=== PATIENT | female | born 1930 | race Caucasian/White ===

== ENCOUNTER 2016-04-20 11:39 | Inpatient (IN) | payer MEDICARE ==
[~2016-04-20] VITALS: Ht 157.5 cm; Wt 63.5 kg
[~2016-04-20 11:39] MED LIST: /WARF5TA OR; ACET65TA OR; AMLO10TA; AMLO10TA OR; AMLO5TAB OR; ASPI81TA83 OR; ATEN25TA PO; ATEN50TA2; ATEN50TA2 OR; CALCCHW12 OR; CLINDAMYCIN OR; DEPA250T3 OR; DEPA500T; DIOV320T; DIOV320T OR; DIVA250T PO; EFFE75CA75; EFFE75CA75 OR; FERR325T OR; FISH1000 OR; FLEEENE4 PR; FLEET ENEMA PR; FURO80TA2 OR; HEPARIN; LASI40TA; LASI40TA PO; MILKSUS OR; MIRALEX OR; POTA10TA PO; POTA20TA2 OR; RESTASIS EYE DROPS; SALISOL7; SENN8.6T5 OR; SIMV40TA2 OR; TRAM50TA2 OR; VANC12CA; VENL75TA3 PO; VICO5TAB; VICO5TAB OR; XANA0.25 OR; ZETI10TA; ZOCO10TA; [UNRECOGNIZED DRUG - OTHER]; [UNRECOGNIZED DRUG - OTHER]; [UNRECOGNIZED DRUG - OTHER]
[2016-04-20 12:36] LABS: BASO % 0.3 % (0.0-1.0); EOS # 0.1 K/mm3 (0.0-0.50); EOS % 1.1 % (0.0-3.0); LARGE UNSTAINED CELL # 0.1 K/mm3 (0.0-0.4); LARGE UNSTAINED CELL % 2.4 % (0.0-4.0); LYMPH # 0.7 K/mm3 (1.5-4.5); MEAN CORPUSCULAR HGB CONC 33.9 g/dl (32.0-36.5); MEAN CORPUSCULAR VOLUME 88.6 fl (80.0-96.0); MONO # 0.4 K/mm3 (0.0-0.8); MONO % 6.2 % (0.0-5.0); NEUTROPHILS # 4.7 K/mm3 (1.8-7.7); NEUTROPHILS % 78.9 % (36.0-66.0); PLATELET COUNT, AUTOMATED 197 k/mm3 (150-450); RED CELL DISTRIBUTION WIDTH 14.6 % (11.5-14.5); WHITE BLOOD COUNT 5.9 K/mm3 (4.0-10.0)
[2016-04-20 12:42] LABS: INR 1.8
[2016-04-20 12:55] LABS: CALCIUM LEVEL 8.7 MG/DL (8.8-10.2); CREATININE FOR GFR 1.64 MG/DL (0.55-1.02); DIGOXIN LEVEL 0.9 NG/ML (0.5-2.0); GLOMERULAR FILTRATION RATE 31.5 (>32); POTASSIUM SERUM 3.7 MEQ/L (3.5-5.1)
--- NOTE | 2016-04-20 14:11 | REP ---
Clinical: Deformity and swelling. Technique: Duran scale and color Doppler evaluation using linear high frequency transducer. Findings: Ultrasound examination of the right lower extremity deep venous structures from the common femoral vein to the popliteal vein demonstrates normal compressibility flow and wave patterns in response to respiration and augmentation. There is no evidence for deep venous thrombosis. Impression: No evidence for deep venous thrombosis. Signed by Don Rabago MD 04/20/2016 02:02 P
[2016-04-20] MEDS ORDERED: VANCOMYCIN HCL 1,000 MG, VIAL MATE ADAPTER 1 EACH in D5W 250 ML IV SCH (15:00)
[2016-04-20] MEDS ORDERED: DIVA250T PO (15:04)
[2016-04-20] MEDS ORDERED: WARF-18 PO (15:04)
[2016-04-20] MEDS ORDERED: WARF-23 PO (15:04)
[2016-04-20] MEDS ORDERED: VENL75CA PO (15:11)
[2016-04-20] MEDS ORDERED: ATEN50TA2 PO (15:11)
[2016-04-20] MEDS ORDERED: SPIR25TA2 PO (15:11)
[2016-04-20] MEDS ORDERED: KRIL1000 PO (15:11)
[2016-04-20] MEDS ORDERED: VITA100066 PO (15:11)
[2016-04-20] MEDS ORDERED: LETR2.5T PO (15:11)
[2016-04-20] MEDS ORDERED: LOSA100T36 PO (15:11)
[2016-04-20] MEDS ORDERED: TORS20TA2 PO (15:11)
[2016-04-20] MEDS ORDERED: KLOR1CAP2 PO (15:11)
[2016-04-20] MEDS ORDERED: SIMV20TA2 PO (15:11)
[2016-04-20] MEDS ORDERED: DIGO0.12 PO (15:11)
[2016-04-20] MEDS ORDERED: REST0.05 OU (15:11)
[2016-04-20 16:41] LABS: ERYTHROCYTE SEDIMENTATION RATE 35 mm/hr (0-42)
[2016-04-20] MEDS ORDERED: WARFARIN SOD 2.5 MG TAB PO SCH (17:00)
[2016-04-20] MEDS ORDERED: NS 1,000 ML IV ONE (17:00)
--- NOTE | 2016-04-20 17:33 | REP ---
Clinical: Shortness of breath. Technique: AP and lateral. Comparison: 08/01/2013. Findings: Mediastinum and cardiac silhouette stable. Lung blank demonstrate diffuse chronic fibrosis and interstitial changes without obvious acute consolidation, effusion, or pneumothorax. Skeletal structures demonstrate osteopenia and degenerative changes including old healed right humerus fracture. Impression: Diffuse chronic changes. No obvious acute cardiopulmonary process Signed by Don Rabago MD 04/20/2016 05:25 P
--- NOTE | 2016-04-20 17:50 | HPE ---
DATE OF ADMISSION: 04/20/2016 PRIMARY CARE PHYSICIAN: Eliseo Serra M.D. INPATIENT HOSPITALIST ATTENDING: Yimi Rolon M.D. CHIEF COMPLAINT: Right leg blisters, swelling and redness. HISTORY OF PRESENT ILLNESS: 85-year-old female with history of bilateral breast cancer status post lumpectomy, radiation, atrial fibrillation on chronic Warfarin and atenolol, hypertension, hypercholesterolemia, presents to the emergency room with two week history of worsening lower extremity edema. Increasing redness, swelling and pain and multiple ulcers which have worsened over the past two weeks. Patient was given topical ointment by her healthcare provider with no improvement. She awoke this morning with bright redness and pain of the right lower extremity prompting her to present to the emergency room. She admits to having some purulent drainage at the right lower extremity site. In the emergency room she was found to be afebrile, white count was normal, venous Dopplers were negative for deep vein thrombosis. She had significant erythema and non healing ulcers. Hospitalist service was called for admission for bilateral lower extremity cellulitis and venous ulcers. She otherwise denies any weight gain, weight loss, changes in appetite, fevers, she admits to some chills yesterday and today which alleviated on its own. Increasing water blisters which have opened up for the past two weeks, pain redness and difficulty ambulating due to increasing lower extremity edema. Otherwise denies any chest pain, pressure, tightness, lightheadedness, palpitations. Denies nausea, vomiting, abdominal pain, diarrhea. Denies upper or lower extremity weakness, numbness, tingling sensation. Denies depression or anxiety. Denies sinus congestion. She is hard of hearing at baseline, wears glasses at baseline, unchanged from prior. Denies any nasal congestion, sore throat, neck enlargement. PAST MEDICAL HISTORY: Bilateral breast cancer in 1994 again 2011 status post lumpectomy, radiation, currently on oral chemotherapy. Atrial fibrillation on chronic Warfarin. Hypercholesterolemia. Hypertension. Dysthymic disorder. Congestive heart failure not otherwise specified. No echocardiogram available. Bilateral knee replacements. Cataract surgery bilaterally. Depression. Reflex disease. Left ventricular diastolic dysfunction echo 10/2007 EF of 60-65%. PAST SURGICAL HISTORY: Bilateral knee replacement. Cataract surgery bilaterally. Lumpectomy with radiation bilaterally. Tonsillectomy. FAMILY HISTORY: Non-contributory due to age. SOCIAL HISTORY: Lives in [facility]. . Denies smoking or alcohol use. DO NOT RESUSCITATE, DO NOT INTUBATE. Health care proxy is Tank Tanner. REVIEW OF SYSTEMS: Has been in her usual state of health until two weeks ago with increasing lower extremity edema, venous ulcers and blisters. Increasing pain and redness of the lower extremities. Chills for the past two days. No documented fever. Prior cataract surgery. No post nasal drip or sore throat. All other systems and 12 point system negative aside from positive findings in history of present illness. PHYSICAL EXAMINATION: Blood pressure 119/63, pulse 68, respiratory rate 18, temperature 97.8, 100% on room air. 63.5 kilos, 5' 2" tall. GENERAL: Awake, alert, and oriented times three. Hard of hearing. Speech is fluent. Pupils round and reactive. Extraocular muscles intact. NECK: Supple. Full range of motion. Trachea is midline. No thyromegaly, carotid bruits or jugular venous distention. CHEST: Lungs are clear. Diminished air sounds. HEART: Diminished breath sounds. S1, S2, irregular, soft systolic ejection murmur at the left sternal border. ABDOMEN: Soft, obese, non-tender, non-distended. Positive bowel sounds. EXTREMITIES: 3+ pitting edema, erythema towards the mid lakhani on the right lower extremity with a 6 x 3 cm venous ulcer. Another in the lateral area measuring 2 cm open ulcer. Left lower extremity has a 6 x 6 cm ulcer on the posterior leg. Electrocardiogram atrial fibrillation. Ventricular wave 68. Non specific ST-T changes. Left ventricular hypertrophy. LABORATORY DATA: White count 5.9, hemoglobin 12, hematocrit 37, platelet count 197, sed rate and CRP are pending. Sodium 139, potassium 3.7, chloride 103, bicarbonate 31, BUN 63, creatinine 1.64 , glucose 100. Previous creatinine 2013 creatinine of 1. IMAGING STUDY: Venous Doppler lower extremity; no deep vein thrombosis. ASSESSMENT AND PLAN: This is an 85-year-old DO NOT RESUSCITATE, DO NOT INTUBATE female with history of bilateral breast cancer status post lumpectomy radiation on chronic Letrozole, atrial fibrillation, congestive heart failure, diastolic dysfunction 2008 echo, hypertension, hypercholesterolemia, atrial fibrillation on chronic warfarin and Digoxin presents to the emergency room with two week history of increase lower extremity edema "water blisters", open ulcers and admitted for bilateral extremity cellulitis and acute kidney injury. Baseline creatinine of 1 in 2012. Patient will be admitted as an inpatient for two midnights to the hospitalist service and assigned to Dr. Yimi Rolon for the following issues: 1. Bilateral lower extremity venous stasis ulcers with underlying cellulitis, questionable <<8:38>> . At this time patient will be given intravenous vancomycin. Right lower extremity ulcer has been cultured for sensitivity with wide band culture. Pharmacy has been consulted for renal dosing of vancomycin. Depending on culture results may need to change antibiotics to prevent C. Difficile. We will start on Bacid. Elevate the lower extremities. 2. Acute kidney injury. Previous creatinine was 1, current creatinine is 1.67. We will hold off on one day of diuretics. We will hold of on the spironolactone torsemide. Monitor for worsening breathing. Check chest x-ray and BNP level. 3. History of atrial fibrillation. Currently rate controlled. Continue on warfarin for cerebrovascular accident (CVA) prophylaxis, atenolol for rate control, Digoxin. Check a level in the morning. 4. Hypertension. In light of new renal failure we will hold off on patient's losartan and torsemide. Recheck metabolic panel in the morning. Renally dose all medications. Avoid other nephrotoxins. 5. History of bilateral breast cancer status post lumpectomy and radiation. Continue letrozole. Patient management per her oncologist. 6. Hypercholesterolemia. Continue Simvastatin. Check lipid profile in the morning. 7. Hypertension. Due to renal failure we will hold off on losartan and torsemide. We may need to titrate patient's atenolol if pulse permits, if not we may need to use hydralazine and nitrates. 8. History of dysthymic disorder. Continue on venlafaxine. 9. Deep vein thrombosis prophylaxis. On chronic Coumadin. Receiving home dose. Patient will be assigned to Dr. Yimi Rolon at 10 p.m. on 02/18/2017. He will assume care of this patient on 7 a.m. on 02/19/2017. [facility]
[2016-04-20] MEDS ORDERED: VANCOMYCIN 1000 MG/20 ML VIAL (J3370) As Ordered ONE (18:33)
--- NOTE | 2016-04-20 18:51 | EDDOCDS ---
Physician Documentation [facility] Name: Pretty Pierre Age: 85 yrs Sex: Female : 1930 Arrival Date: 04/20/2016 Time: 11:39 Bed Admit Hold Private MD: Disposition: 04/20 14:46 Critical Care: Critical care not applicable. pc Disposition: 04/20/16 14:48 Hospitalization ordered by Meredith Ortega for Inpatient Admission. 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 - Bed requested for 5 [place]. - Status is Inpatient Admission. ld5 - Condition is Stable. - Problem is an ongoing problem. - Symptoms are unchanged. HPI: 13:01 This 85 yrs old Female presents to ER via Ambulance with complaints of Leg pc Pain, Leg Swelling. 13:01 The history is obtained from the patient. She has had bilateral leg swelling, right pc worse than left, for 3 weeks. She says her LEs are always slightly swollen and "a little red" but they developed large yellow blisters 2-3 weeks ago, on her shins and calves, that when they rupture, they drain "very sticky yellow fluid". She saw her PCP last week and was started on a cream and advised how to dress her leg wounds. They are now much more red and tender and she is afraid they are infected. She denies any fevers or chills. The patient has experienced a previous episode, approximately 3 years ago. Historical: - Allergies: PENICILLINS (Hives); - Home Meds: 1. divalproex 250 mg oral TbEC 2 times per day (Last dose: 04/19/2016) 2. warfarin 2.5 mg Oral tab 2.5mg every day but mon and fri (Last dose: 04/19/2016) 3. warfarin 5 mg Oral tab 1 tab once daily mon and fri 4. letrozole 2.5 mg oral tab 1 tab once daily (Last dose: 04/19/2016) 5. atenolol 50 mg Oral tab 1 tab once daily (Last dose: 04/19/2016) 6. Klor-Con 10 10 mEq Oral TbER 2 tabs once daily (Last dose: 04/19/2016) 7. spironolactone 25 mg Oral tab 0.5 tab (Last dose: 04/19/2016) 8. digoxin 125 mcg Oral tab once daily (Last dose: 04/19/2016) 9. simvastatin 20 mg Oral tab 1 tab hs (Last dose: 04/19/2016) 10. losartan 100 mg oral tab 1 tab once daily (Last dose: 04/19/2016) 11. venlafaxine 75 mg oral cp24 1 cap once daily (Last dose: 04/19/2016) 12. torsemide 20 mg oral tab 1 tab bid (Last dose: 04/19/2016) - PMHx: afib; bilateral breast cancer; Hypercholesterolemia; mood swings; Hypertension; - PSHx: Lumpectomy; radiation; - The history from nurses notes was reviewed: and I agree with what is documented. - Social history: No barriers to communication noted, The patient speaks fluent [place], Speaks appropriately for age, Smoking status: Patient states former smoker of tobacco. - : The pt / caregiver states he / she is on anticoagulants: Home medication list is obtained from the patient. - Hospitalizations: : No recent hospitalization is reported. - Exposure Risk Screening:: None identified. - Immunization history:: All immunizations up-to-date. - Family history: Not pertinent. - Social history:: the patient is a non-smoker, the patient does not drink alcohol. ROS: 13:01 All systems are negative except as listed. pc Exam: 13:01 General Appearance: no acute distress, alert. pc 13:01 EENT: normal eye inspection, ears, nose and throat normal, pharynx normal, mucous membranes moist 13:01 Neck: The exam reveals no acute abnormalities. ROM is normal and painless. No nuchal rigidity is noted.. 13:01 Respiratory: no respiratory distress, normal breath sounds. 13:01 CVS: regular pulse rate, regular rhythm, normal S1 and S2, no murmurs, strong peripheral pulses. 13:01 Abdomen: soft, non-tender, no organomegaly, normal bowel sounds. 13:01 Back: normal inspection. 13:01 Skin: skin color is normal, warm, dry. 13:01 Extremities: grossly normal except: noted in the right leg and left leg: erythema and swelling of both anterior tibias, with areas of ruptured blisters with clear drainage. The right calf is 3cm greater circumference than the left but is non-tender. There are areas of ruptured blisters on both calves. Distal pulses are normal. 13:01 Neuro: oriented x 3, cranial nerves normal as tested, no motor deficits, no sensory deficits. 13:01 Psych: normal mood. Vital Signs: 11:48 BP 119 / 63; Pulse 68; Resp 18; Temp 97.8(O); Pulse Ox 100% on R/A; Weight 63.5 kg / ct3 139.99 lbs (R); Height 5 ft. 2 in. (157.48 cm) (R); Pain 10/10; 16:36 Pulse 70 MON; Pulse Ox 99% ; ld5 16:45 BP 128 / 72; Pulse 66; Resp 18; Temp 98; Pulse Ox 99% on R/A; ld5 17:28 BP 128 / 72 (auto/); ld5 17:50 Pulse 72 MON; Pulse Ox 99% ; ld5 11:48 Body Mass Index 25.61 (63.50 kg, 157.48 cm) ct3 MDM: 11:58 IV Saline Lock ordered. mcp 12:00 CBC with Diff Ordered. EDMS 12:00 MED Profile Ordered. EDMS 12:00 PT/INR Ordered. EDMS 12:16 DIGOXIN LEVEL Ordered. EDMS 12:16 VALPROIC ACID (DEPAKOTE) Ordered. EDMS 13:00 CBC with Diff Reviewed. pc 13:00 MED Profile Reviewed. pc 13:00 PT/INR Reviewed. pc 13:00 VALPROIC ACID (DEPAKOTE) Reviewed. pc 13:00 DIGOXIN LEVEL Reviewed. pc 13:01 DVT US Lower Ordered. EDMS 13:01 ECG WITH READING ER PHYS+CARDIAG ordered. EDMS 13:01 Differential Diagnosis: stasis dermatitis both LEs, swollen right calf r/o DVT; yellow pc blisters on LE r/o pemphigus. Plan: labs, imaging. 13:18 Test interpretation: EKG. pc 13:27 Wound Culture - Most Extremities Ordered. EDMS 14:29 DVT US Lower Reviewed. pc 14:38 [facility] Payment Agreement was scanned into [employer] and attached to record. 5 14:38 Financial registration complete. jp5 14:46 Data reviewed: old medical records, vital signs, nurses notes, lab test results, all pc radiology studies and available results. Data reviewed: EKG(s). Test interpretation: LAB - all labs as ordered have been reviewed, interpreted and considered in the overall management of the clinical presentation; Ultrasound - interpreted by Radiologist, Extremity Lower Right Normal. The patient has been re-examined and re-evaluated. There is no appreciated change of the patient's symptoms at this time. Physician consultation: Dr. Meredith Ortega was contacted at 14:46, regarding admission, and will see patient in ED. Disposition: The historical points, examination findings, and any diagnostic results supporting the provided diagnosis, were discussed with the patient or legal guardian. The need for further work-up and/or treatment in the hospital was explained. 14:47 BED REQUEST+ADM ordered. EDMS 14:56 Admission / Observation Status ordered. EDMS 14:57 2 GRAM SODIUM DIET ordered. EDMS 14:57 BASIC METABOLIC PROFILE Ordered. EDMS 14:57 CBC WITH DIFFERENTIAL Ordered. EDMS 14:58 WOUND CULTURE Ordered. EDMS 14:59 PHYSICAL THERAPY EVAL & TREAT ordered. EDMS 16:04 ERYTHROCYTE SEDIMENTATION RATE Ordered. EDMS 16:04 C REACTIVE PROTEIN QUANTITATIV Ordered. EDMS 16:37 BRAIN NATIURETIC PEPTIDE Ordered. EDMS 16:37 Chest, 2 view PA, Lat Ordered. EDMS 18:04 BASIC METABOLIC PROFILE Ordered. EDMS 18:18 ECHOCARD,DOPPLER/COLOR FLOW ordered. EDMS 18:34 Written Provider Order was scanned into [employer] and attached to record. deg 18:45 vancomycin 1 grams IVPB once over 60 mins; dilute in 250mL of NS or D5W ordered. ld5 EC:18 Rate is 69 beats/min. Rhythm is irregularly irregular, A fib. QRS [place] is Normal. QRS pc interval is normal. No Q waves. T waves are Normal. ST Segment is depressed in leads I, aVL, V3, V4, V5, V6, <1mm. Clinical impression: Nonspecific ST-T changes, Atrial Fibrillation w/o RVR, and LVH. No change from previous ECG in July,. Administered Medications: 18:45 Drug: vancomycin 1 grams [vancomycin 1,000 mg intravenous injection] Route: IVPB; ld5 Infused Over: 60 mins; Site: left antecubital; 18:45 Follow up: IV Status: Infusion continued upon admit ld5 Signatures: Dispatcher [employer] EDMS Ramirez Ricketts MD MD pc Murray, Denise, [employer] deg Trujillo, CristianJUANCARLOS cabezas RN, Staci, RN RN srm Isaías, Delmy, RN RN Erin Live,RN RN ld5 Maru Mckeon RN RN [id number] Enrrique Holbrook jp5 The chart was reviewed and I authenticate all verbal orders and agree with the evaluation and treatment provided.Corrections: (The following items were deleted from the chart) 12:01 11:58 Home Meds: torsemide 20 mg oral tab 2 tabs twice a day (Last Dose: 04/19/2016); dwg srm 12:16 12:00 DIGOXIN LEVEL+LAB ordered. EDMS EDMS 12:16 12:00 VALPROIC ACID (DEPAKOTE)+LAB ordered. EDMS EDMS 16:07 14:57 C REACTIVE PROTEIN QUANTITATIV ordered. EDMS EDMS 16:07 14:57 ERYTHROCYTE SEDIMENTATION RATE ordered. EDMS EDMS Attachments: 14:38 [facility] Payment Agreement jp5 18:34 Written Provider Order deg MTDD
--- NOTE | 2016-04-20 18:51 | EDDOCDS ---
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 saw PMD 1-2 days ago and legs are getting worse. blistered area to back of left calf. purulent drainage to right lower leg. Adult Sepsis Screening: The patient does not have new or worsening altered mentation. Patient's respiratory rate is less than 22. Systolic blood pressure is greater than 100. Patient has a qSOFA score of 0- Negative Sepsis Screen. Suicide/Homicide risk assessment- the patient denies having any suicidal and/or homicidal ideations and does not present with any other emotional, behavioral or mental health complaints. Status: Patient is not a emergency service worker or dependent. Transition of care: patient was not received from another setting of care. 11:42 Method Of Arrival: Ambulance [facility] 11:42 Acuity: [place] Level 3 [facility] Triage Assessment: 11:45 General: Appears in no apparent distress, Behavior is appropriate for age, cooperative. srm Pain: Denies pain. Quality of pain is described as burning. Historical: - Allergies: PENICILLINS (Hives); - Home Meds: 1. divalproex 250 mg oral TbEC 2 times per day (Last dose: 04/19/2016) 2. warfarin 2.5 mg Oral tab 2.5mg every day but mon and fri (Last dose: 04/19/2016) 3. warfarin 5 mg Oral tab 1 tab once daily mon and fri 4. letrozole 2.5 mg oral tab 1 tab once daily (Last dose: 04/19/2016) 5. atenolol 50 mg Oral tab 1 tab once daily (Last dose: 04/19/2016) 6. Klor-Con 10 10 mEq Oral TbER 2 tabs once daily (Last dose: 04/19/2016) 7. spironolactone 25 mg Oral tab 0.5 tab (Last dose: 04/19/2016) 8. digoxin 125 mcg Oral tab once daily (Last dose: 04/19/2016) 9. simvastatin 20 mg Oral tab 1 tab hs (Last dose: 04/19/2016) 10. losartan 100 mg oral tab 1 tab once daily (Last dose: 04/19/2016) 11. venlafaxine 75 mg oral cp24 1 cap once daily (Last dose: 04/19/2016) 12. torsemide 20 mg oral tab 1 tab bid (Last dose: 04/19/2016) - PMHx: afib; bilateral breast cancer; Hypercholesterolemia; mood swings; Hypertension; - PSHx: Lumpectomy; radiation; - The history from nurses notes was reviewed: and I agree with what is documented. - Social history: No barriers to communication noted, The patient speaks fluent Lithuanian, Speaks appropriately for age, Smoking status: Patient states former smoker of tobacco. - : The pt / caregiver states he / she is on anticoagulants: Home medication list is obtained from the patient. - Hospitalizations: : No recent hospitalization is reported. - Exposure Risk Screening:: None identified. - Immunization history:: All immunizations up-to-date. - Family history: Not pertinent. - Social history:: the patient is a non-smoker, the patient does not drink alcohol. Screenin:46 Screening information is obtained from the patient. Fall risk: No risks identified. srm Assistance ADL's: requires no assistance with activities of daily living. Abuse/DV Screen: The patient / caregiver reports he/she is: not in a situation that causes fear, pain or injury. Nutritional screening: No deficits noted. Advance Directives: Currently, there is a health care proxy, emily burden. There is an active DNR order but there is no copy available at this time. home support is adequate. Assessment: 12:03 Derm: bilateral lower leg redness, swelling into feet. pedal pulses palpable. +3 pitted srm edema top both feet. large un popped blister to back of left calf. open draining area to right lower leg. 13:00 General: Appears uncomfortable, Behavior is cooperative. Pain: Location: right leg and mcp left leg Pain currently is 6 out of 10 on a pain scale. Neurological: No deficits noted. Respiratory: Airway is patent Respiratory effort is even, unlabored. Derm: Skin is pink, warm & dry. Musculoskeletal: Circulation, motion, and sensation intact Swelling present in right leg and left leg. 14:00 General: Appears uncomfortable, Behavior is cooperative. Neurological: No deficits mcp noted. Respiratory: Airway is patent Respiratory effort is even, unlabored. Derm: Skin is pink, warm & dry. 15:00 General: Appears in no apparent distress, Behavior is cooperative. Neurological: No mcp deficits noted. Respiratory: Airway is patent Respiratory effort is even, unlabored. Derm: Skin is pink, warm & dry. Musculoskeletal: Circulation, motion, and sensation intact Swelling present in right leg and left leg. 15:20 General: Appears in no apparent distress, Behavior is cooperative, pleasant. Pain: ld5 Location: right lakhani and left lakhani Pain currently is 5 out of 10 on a pain scale. Neurological: Level of Consciousness is awake, alert. Cardiovascular: Edema pitting to right foot, left foot. Respiratory: Airway is patent Respiratory effort is even, unlabored, Breath sounds are clear bilaterally. 15:30 Derm: open area to right lakhani, bilateral shins and feet red and warm to the touch. ld5 16:20 General: Appears in no apparent distress, Pt resting comfortably in bed. No apparent ld5 distress. Pt aware of plan for admission. Denies any needs at this time. Will continue to monitor. 17:04 General: Pt up to commode. Tolerated well. Will continue to monitor. ld5 17:48 General: Appears in no apparent distress, Behavior is cooperative, pleasant. ld5 Neurological: Level of Consciousness is awake, obeys commands. Respiratory: Airway is patent Respiratory effort is even, unlabored. 18:46 General: Pt ate dinner. Tolerated well. Will continue to monitor. ld5 Vital Signs: 11:48 BP 119 / 63; Pulse 68; Resp 18; Temp 97.8(O); Pulse Ox 100% on R/A; Weight 63.5 kg (R); ct3 Height 5 ft. 2 in. (157.48 cm) (R); Pain 10/10; 16:36 Pulse 70 MON; Pulse Ox 99% ; ld5 16:45 BP 128 / 72; Pulse 66; Resp 18; Temp 98; Pulse Ox 99% on R/A; ld5 17:28 BP 128 / 72 (auto/); ld5 17:50 Pulse 72 MON; Pulse Ox 99% ; ld5 11:48 Body Mass Index 25.61 (63.50 kg, 157.48 cm) ct3 Vitals: 11:48 Log In Time N/A - ambulance arrival. ct3 ED Course: 11:40 Patient visited by Ashlie Cortes Check Writer Salesperson. deg 11:40 Patient moved to Waiting deg 11:41 Patient moved to 1 deg 11:44 Triage Initiated srm 11:46 The patient / caregiver is instructed regarding the plan of care and ED course. Patient srm has correct armband on for positive identification. Placed in gown. Bed in low position. Call light in reach. Side rails up X 1. radiation monitor on. Pulse ox on. NIBP on. 11:49 Patient visited by Yesenia Esquivel PCA. ct3 11:58 Patient visited by Tiffanie Nash RN. srm 12:03 PT/INR Sent. srm 12:03 MED Profile Sent. srm 12:03 CBC with Diff Sent. srm 12:04 Patient visited by Tiffanie Nash RN. srm 12:04 Inserted saline lock: 20 gauge in left antecubital area and blood collected. The [facility] patient tolerated the procedure well. by Kelly Metz rn. 12:19 VALPROIC ACID (DEPAKOTE) Sent. srm 12:19 DIGOXIN LEVEL Sent. srm 12:33 Ramirez Ricketts MD is Attending Physician. pc 12:35 Patient visited by Ramirez Ricketts MD. pc 13:17 EKG done. (by ED staff). Reviewed by Ramirez Ricketts MD. ls3 13:21 Patient visited by Yesenia Esquivel PCA. ct3 13:35 Patient moved to Ultrasound am10 13:55 Patient moved to 1 am10 14:25 Patient visited by Yesenia Esquivel PCA. ct3 14:28 DVT US Lower Returned. EDMS 14:38 [facility] Payment Agreement was scanned into [employer] and attached to record. jp5 14:48 Meredith Ortega is Hospitalizing Provider. pc 15:07 Patient visited by Delmy Metz RN. mcp 15:47 Patient moved to Admit Hold dwg 17:04 Patient visited by Erin Kay,JUANCARLOS. ld5 17:12 Patient visited by Hannah Ramos. dem1 17:12 Assisted to bedside commode. dem1 17:49 Patient visited by Erin Kay,JUANCARLOS. ld5 18:21 Chest, 2 view PA, Lat Returned. EDMS 18:34 Written Provider Order was scanned into [employer] and attached to record. deg 18:48 No procedures done that require assistance. ld5 18:49 WOUND CULTURE Sent. ld5 18:50 Patient visited by Erin Kay RN. ld5 Administered Medications: 18:45 Drug: vancomycin 1 grams [vancomycin 1,000 mg intravenous injection] Route: IVPB; ld5 Infused Over: 60 mins; Site: left antecubital; 18:45 Follow up: IV Status: Infusion continued upon admit ld5 Order Results: Lab Order: CBC with Diff; SPEC'M 04/20/16 11:54 Test: WHITE BLOOD COUNT; Value: 5.9; Range: 4.0-10.0; Units: K/mm3; Status: F Test: RED BLOOD COUNT; Value: 4.19; Range: 4.00-5.40; Units: M/mm3; Status: F Test: HEMOGLOBIN; Value: 12.6; Range: 12.0-16.0; Units: g/dl; Status: F Test: HEMATOCRIT; Value: 37.1; Range: 36.0-47.0; Units: %; Status: F Test: MEAN CORPUSCULAR VOLUME; Value: 88.6; Range: 80.0-96.0; Units: fl; Status: F Test: MEAN CORPUSCULAR HEMOGLOBIN; Value: 30.0; Range: 27.0-33.0; Units: pg; Status: F Test: MEAN CORPUSCULAR HGB CONC; Value: 33.9; Range: 32.0-36.5; Units: g/dl; Status: F Test: RED CELL DISTRIBUTION WIDTH; Value: 14.6; Range: 11.5-14.5; Abnormal: Above high normal; Units: %; Status: F Test: PLATELET COUNT, AUTOMATED; Value: 197; Range: 150-450; Units: k/mm3; Status: F Test: NEUTROPHILS %; Value: 78.9; Range: 36.0-66.0; Abnormal: Above high normal; Units: %; Status: F Test: LYMPH %; Value: 11.0; Range: 24.0-44.0; Abnormal: Below low normal; Units: %; Status: F Test: MONO %; Value: 6.2; Range: 0.0-5.0; Abnormal: Above high normal; Units: %; Status: F Test: EOS %; Value: 1.1; Range: 0.0-3.0; Units: %; Status: F Test: BASO %; Value: 0.3; Range: 0.0-1.0; Units: %; Status: F Test: LARGE UNSTAINED CELL %; Value: 2.4; Range: 0.0-4.0; Units: %; Status: F Test: NEUTROPHILS #; Value: 4.7; Range: 1.8-7.7; Units: K/mm3; Status: F Test: LYMPH #; Value: 0.7; Range: 1.5-4.5; Abnormal: Below low normal; Units: K/mm3; Status: F Test: MONO #; Value: 0.4; Range: 0.0-0.8; Units: K/mm3; Status: F Test: EOS #; Value: 0.1; Range: 0.0-0.50; Units: K/mm3; Status: F Test: BASO #; Value: 0.0; Range: 0.0-0.2; Units: K/mm3; Status: F Test: LARGE UNSTAINED CELL #; Value: 0.1; Range: 0.0-0.4; Units: K/mm3; Status: F Lab Order: MED Profile; SPEC'M 04/20/16 11:54 Test: GLUCOSE, FASTING; Value: 100; Range: 83-110; Units: MG/DL; Status: F Test: BLOOD UREA NITROGEN; Value: 63; Range: 7-18; Abnormal: Above high normal; Units: MG/DL; Status: F Test: CREATININE FOR GFR; Value: 1.64; Range: 0.55-1.02; Abnormal: Above high normal; Units: MG/DL; Status: F Test: GLOMERULAR FILTRATION RATE; Value: 31.5; Range: >32; Abnormal: Below low normal; Status: F Test: SODIUM LEVEL; Value: 139; Range: 136-145; Units: MEQ/L; Status: F Test: POTASSIUM SERUM; Value: 3.7; Range: 3.5-5.1; Units: MEQ/L; Status: F Test: CHLORIDE LEVEL; Value: 103; Range: 98-107; Units: MEQ/L; Status: F Test: CARBON DIOXIDE LEVEL; Value: 31; Range: 21-32; Units: MEQ/L; Status: F Test: ANION GAP; Value: 5; Range: 8-16; Abnormal: Below low normal; Units: MEQ/L; Status: F Test: CALCIUM LEVEL; Value: 8.7; Range: 8.8-10.2; Abnormal: Below low normal; Units: MG/DL; Status: F Test Note: ; Units are mL/min/1.73 m2 Chronic Kidney Disease Staging per NKF: Stage I & II GFR >=60 Normal to Mildly Decreased Stage III GFR 30-59 Moderately Decreased Stage IV GFR 15-29 Severely Decreased Stage V GFR <15 Very Little GFR Left ESRD GFR <15 on SECOND HELPER Lab Order: PT/INR; 04/20/16 11:54 Test: PROTHROMBIN TIME; Value: 21.0; Range: 12.3-14.5; Abnormal: Above high normal; Units: SECONDS; Status: F Test: INR; Value: 1.80; Status: F Test Note: ; THERAPUTIC HUMAN INR VALUES INDICATIONS NORMAL RANGES PROPHYLAXIS/TREATMENT OF: VENOUS THROMBOSIS 2.0-3.0 PULMONARY EMBOLISM 2.0-3.0 PREVENTION OF SYSTEMIC EMBOLISM FROM: TISSUE HEART VALVES 2.0-3.0 ACUTE MYOCARDIAL INFARCTION 2.0-3.0 VALVULAR HEART DISEASE 2.0-3.0 ATRIAL FIBRILLATION 2.0-3.0 MECHANICAL VALVES(HIGH RISK) 2.5-3.5 RECURRENT MYOCARDIAL INFARCTION 2.5-3.5 Lab Order: DIGOXIN LEVEL; 04/20/16 11:54 Test: DIGOXIN LEVEL; Value: 0.9; Range: 0.5-2.0; Units: NG/ML; Status: F Lab Order: VALPROIC ACID (DEPAKOTE); 04/20/16 11:54 Test: VALPROIC ACID (DEPAKOTE); Value: 34.8; Range: 50.0-100.0; Abnormal: Below low normal; Units: UG/ML; Status: F Lab Order: ERYTHROCYTE SEDIMENTATION RATE; 04/20/16 11:54 Test: ERYTHROCYTE SEDIMENTATION RATE; Value: 35; Range: 0-42; Units: mm/hr; Status: F Lab Order: C REACTIVE PROTEIN QUANTITATIV; SPEC'M 04/20/16 11:54 Test: C REACTIVE PROTEIN QUANTITATIV; Value: 1.87; Range: 0.00-0.30; Abnormal: Above high normal; Units: MG/DL; Status: F Lab Order: BRAIN NATIURETIC PEPTIDE; SPEC'M 04/20/16 11:54 Test: BRAIN NATRIURETIC PEPTIDE; Value: 287; Range: <100; Abnormal: Above high normal; Units: PG/ML; Status: F Radiology Order: DVT US Lower Test: DVT US Lower REASON FOR EXAMINATION: Deformity/Swelling; Clinical: Deformity and swelling.; ; Technique: Duran scale and color Doppler evaluation using linear high frequency; transducer.; ; Findings:; Ultrasound examination of the right lower extremity deep venous structures from; the common femoral vein to the popliteal vein demonstrates normal compressibility; flow and wave patterns in response to respiration and augmentation. There is no; evidence for deep venous thrombosis.; ; Impression:; No evidence for deep venous thrombosis.; ; ; Signed by; Don Rabago MD 04/20/2016 02:02 P; Radiology Order: Chest, 2 view PA, Lat Test: Chest, 2 view PA, Lat REASON FOR EXAMINATION: sob; Clinical: Shortness of breath.; ; Technique: AP and lateral.; ; Comparison: 08/01/2013.; ; Findings:; Mediastinum and cardiac silhouette stable. Lung blank demonstrate diffuse; chronic fibrosis and interstitial changes without obvious acute consolidation,; effusion, or pneumothorax. Skeletal structures demonstrate osteopenia and; degenerative changes including old healed right humerus fracture.; ; Impression:; Diffuse chronic changes. No obvious acute cardiopulmonary process; ; ; Signed by; Don Rabago MD 04/20/2016 05:25 P; Outcome: 14:48 Decision to Hospitalize by Provider. pc 18:48 Discharge Assessment: Patient awake, alert and oriented x 3. No cognitive and/or ld5 functional deficits noted. Patient verbalized understanding of disposition instructions. patient administered narcotics - no. The following High Risk Discharge criteria are identified: None. Admitted to Med/Surg accompanied by tech, via stretcher, with chart. Condition: stable. No special radiology studies were completed. Property :Personal belongings accompany Pt. 18:50 Patient left the ED. ld5 Signatures: Dispatcher [employer] EDMS Ramirez Ricketts MD MD pc Murray, Denise, Check Writer Salesperson Unit deg Cristian Trujillo RN RN dwg Tiffanie Nash RN RN srm Delmy Metz RN RN mcp Monnat, Ashley am10 Erin Kay RN RN ld5 Yesenia Esquivel, INSTRUCTIONAL SERVICES LIBRARIAN INSTRUCTIONAL SERVICES LIBRARIAN ct3 Richard, Maganeishia dem1 Enrrique Holbrook jp5 Jessica Mason, INSTRUCTIONAL SERVICES LIBRARIAN INSTRUCTIONAL SERVICES LIBRARIAN ls3 Corrections: (The following items were deleted from the chart) 12: 11:58 Home Meds: torsemide 20 mg oral tab 2 tabs twice a day (Last Dose: 04/19/2016); dwg srm 12:16 12:03 VALPROIC ACID (DEPAKOTE)+LAB sent. srm EDMS 12:16 12:03 DIGOXIN LEVEL+LAB sent. srm EDMS MTDD
--- NOTE | 2016-04-20 19:20 | PHACANCOPD ---
PHARMACY VANCOMYCIN DOSING Pt Demographics Demographics Patient Age:85 , Weight: , Gender: female Adjusted Body Weight Date: 04/20/16, Adjusted Body Weight: [63.5] Kg Events Past 24 Hours Events Past 24 Hours: NO: Change in CrCl, Dialysis, Diuretic Therapy, Elevation in WBC, Fever, Other, Pending Diagnostics, Pending Procedures Vancomycin Vancomycin indication: CELLULITIS Vancomycin Target Ranges: 10-20 mcg/ml Vancomycin Load Y/N: No Load Dose Date Time Vancomycin Load Dose: Date: Time: Vancomycin Dose Date: 04/20/16. Current Vancomycin Dose: [1 GRAM IV Q24H] Intermittent Dosing?: No Labs Labs Item Value Date Time White Blood Count 5.9 K/mm3 04/20/16 1154 Creatinine 1.64 MG/DL H 04/20/16 1154 Micro Microbiology 04/20/16 Wound Culture, Received Pending Creatinine Clearance Date:04/20/16. Creatinine Clearance: [20 ML/MIN]. Pending Labs VANCO TROUGH 04/22 @ 1600 Assessment and Plan Maintaining Current Dose?: Yes Reason for dose change: No Dose Change Pharmacist Note Pharmacist Note Date: 04/20/16. Pharmacist note: Patient is an 85yo female being treated for cellulitis. 1 gram of vancomycin was administered in the ER @ 1845. Vancomycin 1 gram every 24 hours is scheduled to start 04/21 @ 1700. Trough is scheduled to be drawn after 2 doses (04/22/16 @ 1600). Patients baseline SCr is around 1. Continue to monitor renal function and adjust dose as needed. KEVAN ESCALONA PHARMACY Apr 20, 2016 19:20
[2016-04-20 19:47] LABS: CALCIUM LEVEL 8.8 MG/DL (8.8-10.2); CREATININE FOR GFR 1.42 MG/DL (0.55-1.02); GLOMERULAR FILTRATION RATE 37.3 (>32); POTASSIUM SERUM 3.8 MEQ/L (3.5-5.1)
[2016-04-20 20:00] VITALS: BP 137/72
[2016-04-20] MEDS: LACTOBACILLUS ACIDOPHILUS CAP (BACID) PO SCH (20:30)
[2016-04-20] MEDS: WARFARIN SOD 2.5 MG TAB PO SCH (20:33)
[2016-04-20] MEDS: VITAMIN D 1,000 INTERNATIONAL UNITS TABLET PO SCH (20:33)
[2016-04-20] MEDS: DIGOXIN 0.125 MG TAB PO SCH (20:33)
[2016-04-20] MEDS: ATENOLOL 50 MG TAB PO SCH (20:34)
[2016-04-20] MEDS: SIMVASTATIN 20 MG TAB PO SCH (20:34)
[2016-04-20] MEDS: DIVALPROEX 250 MG TAB PO SCH (20:45)
[2016-04-20] MEDS: LETROZOLE 2.5 MG TAB PO SCH (21:48)
[2016-04-20 22:00] VITALS: BP 136/64
[2016-04-21 06:00] VITALS: BP 145/65
[2016-04-21 06:47] LABS: INR 2.06
--- NOTE | 2016-04-21 07:26 | ECGEPIP ---
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
[2016-04-21] MEDS: LACTOBACILLUS ACIDOPHILUS CAP (BACID) PO SCH ×2 (08:15→17:54)
[2016-04-21] MEDS: DIVALPROEX 250 MG TAB PO SCH ×2 (08:16→20:48)
[2016-04-21] MEDS: VENLAFAXINE **XR** 75MG CAPSULE PO SCH (08:16)
[2016-04-21] MEDS: SANTYL OINT 30GM TOP SCH (09:00)
[2016-04-21] MEDS: VITAMIN D 1,000 INTERNATIONAL UNITS TABLET PO SCH (11:10)
[2016-04-21 14:00] VITALS: BP 148/65
--- NOTE | 2016-04-21 15:44 | IPNPDOC ---
Text Note Date of Service The patient was seen on 04/21/16 at 15:34. NOTE Subjective: Patient states redness of her lower lower ext. is getting better. Denies any chest pain/palpitations. Objective: Vitals: (see below) General: No acute distress, laying comfortably in bed. HEENT: Moist mucous membranes. Neck: No JVD or lymphadenopathy Cardiac: RRR, No murmurs Pulm: Clear to auscultation b/l. No wheezing, rhonchi Abd: NT/ND + BS Ext: Multiple LE venous stasis ulcers, with surrounding cellulitis. Distal pulses intact. Labs (see below) Images: CXR 04/20/16 Impression: Diffuse chronic changes. No obvious acute cardiopulmonary process Doppler u/s 04/20/16 Impression: No evidence for deep venous thrombosis. Assessment/Plan 1. Bilateral lower extremity venous stasis ulcers with underlying cellulitis- continue IV vancomycin. On ulcers culture for sensitivity. Only elevation of her lower extremities. Wound care consults. Trend WBCs and CRP. 2. Acute kidney injury, with baseline creatinine of 1. Diuretics have been held. Avoid nephrotoxins. 3. Hypertension- losartan and torsemide were held given the renal failure. We will continue to monitor. 4. History of breast cancer status post lumpectomy and radiation. Continue letrozole. Will need outpatient oncology follow-up 5. Hyperlipidemia- continue statin 6. Atrial fibrillation on Coumadin DVT prophy: Continue Coumadin VS,Fishbone, I+O VS, Fishbone, I+O Laboratory Tests 04/20/16 18:49 Calcium Level 8.8 Vital Signs Date Time Temp Pulse Resp B/P Pulse Ox O2 Delivery O2 Flow Rate FiO2 04/21/16 06:00 98.9 73 18 145/65 97 Room Air I&O- Last 24 Hours up to 6 AM 04/21/16 06:00 Intake Total 840 ml Output Total 1225 ml Balance -385 ml GINNA COX MD Apr 21, 2016 15:44
[2016-04-21 16:12] LABS: BASO % 0.1 % (0.0-1.0); CALCIUM LEVEL 8.7 MG/DL (8.8-10.2); CREATININE FOR GFR 1.1 MG/DL (0.55-1.02); EOS # 0.1 K/mm3 (0.0-0.50); EOS % 0.8 % (0.0-3.0); LARGE UNSTAINED CELL # 0.1 K/mm3 (0.0-0.4); LARGE UNSTAINED CELL % 1.7 % (0.0-4.0); LYMPH # 0.6 K/mm3 (1.5-4.5); LYMPH % 7.5 % (24.0-44.0); MEAN CORPUSCULAR HEMOGLOBIN 28.8 pg (27.0-33.0); MEAN CORPUSCULAR HGB CONC 31.5 g/dl (32.0-36.5); MEAN CORPUSCULAR VOLUME 91.5 fl (80.0-96.0); MONO # 0.4 K/mm3 (0.0-0.8); MONO % 5.1 % (0.0-5.0); NEUTROPHILS # 7.1 K/mm3 (1.8-7.7); NEUTROPHILS % 84.8 % (36.0-66.0); PLATELET COUNT, AUTOMATED 161 k/mm3 (150-450); POTASSIUM SERUM 4.3 MEQ/L (3.5-5.1); RED CELL DISTRIBUTION WIDTH 14.6 % (11.5-14.5); WHITE BLOOD COUNT 8.3 K/mm3 (4.0-10.0)
[2016-04-21] MEDS ORDERED: WARFARIN SOD 5 MG TAB PO SCH (17:00)
[2016-04-21] MEDS: VANCOMYCIN HCL 1,000 MG, VIAL MATE ADAPTER 1 EACH in D5W 250 ML IV SCH (17:10)
--- NOTE | 2016-04-21 17:30 | CR ---
DATE OF CONSULTATION: 04/21/2016 Telemedicine wound care consult. CONSULT REQUESTED BY: Dr. Yimi Rolon REASON FOR CONSULTATION: Right and left lower extremity venous stasis ulcers. 85-year-old female with a history of bilateral breast cancer, status post lumpectomy with radiation, on anticoagulation for chronic atrial fibrillation, admitted via the emergency room for worsening of bilateral lower extremity edema. The patient states that approximately 2 weeks ago she noticed blisters forming on her right and left lower extremities that broke and drained clear fluid. The initial treatment by her medical doctor was Silvadene and gauze. She has never had compression dressings and has not had a venous workup. The patient's ambulatory status is somewhat compromised for her age and she does a fair amount of sedentary activity. However, she states she does sleep in a bed at night. PAST MEDICAL HISTORY: Significant for congestive heart failure which has contributed to the local edema, bilateral knee replacements, and an ejection fraction of 60-65%. PHYSICAL EXAMINATION: The patient has bilateral 3+ pitting edema. On the left lower extremity there is a venous ulcer measuring 5.0 cm x 4.6 cm. This wound base shows superficial, necrotic fibrin slough and there is bruising without erythema involving the periwound. The drainage is moderate to heavy, serosanguineous, without odor. There is no bone, tendon or fascia exposed.. The right lower extremity shows a wound cluster measuring 6.5 cm x 10.0 cm. The wound bases show fibrin slough. No bone, tendon or fascia is noted within any of the wound bases. The drainage is moderate to heavy, serosanguineous, without odor. Wound edges are fixed. The periwound shows minimal erythema without significant maceration. TREATMENT: Prior to discharge the patient should have a standing venous ultrasound of the right and left lower extremities. Consideration for Trental 400 mg three times a day should be given. This will not interfere with her anticoagulation status and its benefit is to add oxygenation and aid in supplying local nutrition to the wounds. The mainstay of the treatment is elevation and compression. Wound care will include Santyl to the wounds covered with a nonadherent foam dressing, Kerlix wrap and a Coban wrap. The wrap should start at the transmetatarsal level and go up to just below the popliteal level. The patient should be in bed with mild Trendelenburg position and avoid prolonged sitting in a chair. She can ambulate as tolerated. Dressing changes should be done on a daily basis. Short course of antibiotics can be considered although at present, with a normal white count, afebrile, and no significant erythema, it is not indicated. The patient can be followed up at the wound clinic. Please make a referral at the beginning of next week and we will be glad to accept her as a patient. Prior treatment of Silvadene and gauze should be discontinued and is not indicated. MTDD
[2016-04-21] MEDS: LETROZOLE 2.5 MG TAB PO SCH (17:55)
[2016-04-21] MEDS: DIGOXIN 0.125 MG TAB PO SCH (20:48)
[2016-04-21] MEDS: ATENOLOL 50 MG TAB PO SCH (20:48)
[2016-04-21] MEDS: SIMVASTATIN 20 MG TAB PO SCH (20:48)
[2016-04-21 22:00] VITALS: BP 144/67
[2016-04-21] MEDS: ACETAMINOPHEN TAB 650MG DOSE (2X325MG) PO PRN (22:20)
[2016-04-22 06:00] VITALS: BP 148/68
[2016-04-22 06:41] LABS: INR 2.36
[2016-04-22] MEDS: DIVALPROEX 250 MG TAB PO SCH ×2 (08:40→21:22)
[2016-04-22] MEDS: LACTOBACILLUS ACIDOPHILUS CAP (BACID) PO SCH ×2 (08:40→17:39)
[2016-04-22] MEDS: VENLAFAXINE **XR** 75MG CAPSULE PO SCH (08:40)
[2016-04-22] MEDS: SANTYL OINT 30GM TOP SCH (08:41)
[2016-04-22] MEDS: VITAMIN D 1,000 INTERNATIONAL UNITS TABLET PO SCH (12:37)
--- NOTE | 2016-04-22 13:11 | IPNPDOC ---
Text Note Date of Service The patient was seen on 04/22/16 at 13:10. NOTE Subjective: Patient states redness of her lower lower ext has continued to improve and she is satisfied with Dr. Curran's consultation. Denies any chest pain/palpitations. Objective: Vitals: (see below) General: No acute distress, laying comfortably in bed. HEENT: Moist mucous membranes. Neck: No JVD or lymphadenopathy Cardiac: RRR, No murmurs Pulm: Clear to auscultation b/l. No wheezing, rhonchi Abd: NT/ND + BS Ext: Multiple LE venous stasis ulcers, with surrounding cellulitis which is improving. Distal pulses intact. Labs (see below) Images: CXR 04/20/16 Impression: Diffuse chronic changes. No obvious acute cardiopulmonary process Doppler u/s 04/20/16 Impression: No evidence for deep venous thrombosis. Assessment/Plan 1. Bilateral lower extremity venous stasis ulcers with underlying cellulitis- continue IV vancomycin. Wound culture sent for sensitivity. Elevation of her lower extremities. Wound care consult appreciated. Trend WBCs and CRP. 2. Acute kidney injury- improving. Baseline creatinine of 1. Diuretics have been held. Avoid nephrotoxins. 3. Hypertension- losartan and torsemide were held given the renal failure. We will continue to monitor. 4. History of breast cancer status post lumpectomy and radiation. Continue letrozole. Will need outpatient oncology follow-up 5. Hyperlipidemia- continue statin 6. Atrial fibrillation on Coumadin DVT prophy: Coumadin VS,Fishbone, I+O VS, Fishbone, I+O Vital Signs Date Time Temp Pulse Resp B/P Pulse Ox O2 Delivery O2 Flow Rate FiO2 04/22/16 06:00 98.0 72 20 148/68 96 Room Air I&O- Last 24 Hours up to 6 AM 04/22/16 06:00 Intake Total 1120 ml Output Total 600 ml Balance 520 ml GINNA COX MD Apr 22, 2016 13:11
[2016-04-22 14:00] VITALS: BP 151/70
[2016-04-22] MEDS: VANCOMYCIN HCL 1,000 MG, VIAL MATE ADAPTER 1 EACH in D5W 250 ML IV SCH (17:38)
[2016-04-22] MEDS: WARFARIN SOD 2.5 MG TAB PO SCH (17:39)
[2016-04-22] MEDS: LETROZOLE 2.5 MG TAB PO SCH (17:40)
--- NOTE | 2016-04-22 18:02 | PHACANCOPD ---
PHARMACY VANCOMYCIN DOSING Pt Demographics Demographics Patient Age:85 , Weight:63.500 , Gender: female Adjusted Body Weight Date: 04/20/16, Adjusted Body Weight: [63.5] Kg Vancomycin Vancomycin indication: CELLULITIS Vancomycin Target Ranges: 10-20 mcg/ml Vancomycin Load Y/N: No Load Dose Date Time Vancomycin Load Dose: Date: Time: Vancomycin Dose Date: 04/20/16. Current Vancomycin Dose: [1 GRAM IV Q24H] Intermittent Dosing?: No Labs Micro Microbiology 04/20/16 Wound Culture, Received Pending Creatinine Clearance Date:04/20/16. Creatinine Clearance: [20 ML/MIN]. Pending Labs VANCO TROUGH 04/22 @ 1600 Assessment and Plan Maintaining Current Dose?: No Reason for dose change: Trough too low Pharmacist Note Pharmacist Note 04/22/16: Trough today resulted at 7.7, drawn on time prior to the 3rd dose. The patient's scr has improved to 1.1 from 1.42 yesterday (est crcl from 23.8ml/min to 30.7ml/min). I will increase the current regimen to 1g IV Q18H. Wound culture is still pending at this time. A follow-up trough has been scheduled @ 1600, prior to the 5th dose of the new Q18H regimen. We will continue to monitor and make further dose adjustments as needed. Date: 04/20/16. Pharmacist note: Patient is an 85yo female being treated for cellulitis. 1 gram of vancomycin was administered in the ER @ 1845. Vancomycin 1 gram every 24 hours is scheduled to start 04/21 @ 1700. Trough is scheduled to be drawn after 2 doses (04/22/16 @ 1600). Patients baseline SCr is around 1. Continue to monitor renal function and adjust dose as needed. KARMEN MESSER PHARMACY Apr 22, 2016 18:01
--- NOTE | 2016-04-22 19:51 | EDDOCDS ---
Physician Documentation [facility] Name: Pretty Pierre Age: 85 yrs Sex: Female : 1930 Arrival Date: 04/20/2016 Time: 11:39 Bed Admit Hold Private MD: Disposition: 04/20 14:46 Critical Care: Critical care not applicable. pc Disposition: 04/20/16 14:48 Hospitalization ordered by Meredith Ortega for Inpatient Admission. 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 - Bed requested for 5 Dumont. - Status is Inpatient Admission. ld5 - Condition is Stable. - Problem is an ongoing problem. - Symptoms are unchanged. HPI: 13:01 This 85 yrs old Female presents to ER via Ambulance with complaints of Leg pc Pain, Leg Swelling. 13:01 The history is obtained from the patient. She has had bilateral leg swelling, right pc worse than left, for 3 weeks. She says her LEs are always slightly swollen and "a little red" but they developed large yellow blisters 2-3 weeks ago, on her shins and calves, that when they rupture, they drain "very sticky yellow fluid". She saw her PCP last week and was started on a cream and advised how to dress her leg wounds. They are now much more red and tender and she is afraid they are infected. She denies any fevers or chills. The patient has experienced a previous episode, approximately 3 years ago. Historical: - Allergies: PENICILLINS (Hives); - Home Meds: 1. divalproex 250 mg oral TbEC 2 times per day (Last dose: 04/19/2016) 2. warfarin 2.5 mg Oral tab 2.5mg every day but mon and fri (Last dose: 04/19/2016) 3. warfarin 5 mg Oral tab 1 tab once daily mon and fri 4. letrozole 2.5 mg oral tab 1 tab once daily (Last dose: 04/19/2016) 5. atenolol 50 mg Oral tab 1 tab once daily (Last dose: 04/19/2016) 6. Klor-Con 10 10 mEq Oral TbER 2 tabs once daily (Last dose: 04/19/2016) 7. spironolactone 25 mg Oral tab 0.5 tab (Last dose: 04/19/2016) 8. digoxin 125 mcg Oral tab once daily (Last dose: 04/19/2016) 9. simvastatin 20 mg Oral tab 1 tab hs (Last dose: 04/19/2016) 10. losartan 100 mg oral tab 1 tab once daily (Last dose: 04/19/2016) 11. venlafaxine 75 mg oral cp24 1 cap once daily (Last dose: 04/19/2016) 12. torsemide 20 mg oral tab 1 tab bid (Last dose: 04/19/2016) - PMHx: afib; bilateral breast cancer; Hypercholesterolemia; mood swings; Hypertension; - PSHx: Lumpectomy; radiation; - The history from nurses notes was reviewed: and I agree with what is documented. - Social history: No barriers to communication noted, The patient speaks fluent Japanese, Speaks appropriately for age, Smoking status: Patient states former smoker of tobacco. - : The pt / caregiver states he / she is on anticoagulants: Home medication list is obtained from the patient. - Hospitalizations: : No recent hospitalization is reported. - Exposure Risk Screening:: None identified. - Immunization history:: All immunizations up-to-date. - Family history: Not pertinent. - Social history:: the patient is a non-smoker, the patient does not drink alcohol. ROS: 13:01 All systems are negative except as listed. pc Exam: 13:01 General Appearance: no acute distress, alert. pc 13:01 EENT: normal eye inspection, ears, nose and throat normal, pharynx normal, mucous membranes moist 13:01 Neck: The exam reveals no acute abnormalities. ROM is normal and painless. No nuchal rigidity is noted.. 13:01 Respiratory: no respiratory distress, normal breath sounds. 13:01 CVS: regular pulse rate, regular rhythm, normal S1 and S2, no murmurs, strong peripheral pulses. 13:01 Abdomen: soft, non-tender, no organomegaly, normal bowel sounds. 13:01 Back: normal inspection. 13:01 Skin: skin color is normal, warm, dry. 13:01 Extremities: grossly normal except: noted in the right leg and left leg: erythema and swelling of both anterior tibias, with areas of ruptured blisters with clear drainage. The right calf is 3cm greater circumference than the left but is non-tender. There are areas of ruptured blisters on both calves. Distal pulses are normal. 13:01 Neuro: oriented x 3, cranial nerves normal as tested, no motor deficits, no sensory deficits. 13:01 Psych: normal mood. Vital Signs: 11:48 BP 119 / 63; Pulse 68; Resp 18; Temp 97.8(O); Pulse Ox 100% on R/A; Weight 63.5 kg / ct3 139.99 lbs (R); Height 5 ft. 2 in. (157.48 cm) (R); Pain 10/10; 16:36 Pulse 70 MON; Pulse Ox 99% ; ld5 16:45 BP 128 / 72; Pulse 66; Resp 18; Temp 98; Pulse Ox 99% on R/A; ld5 17:28 BP 128 / 72 (auto/); ld5 17:50 Pulse 72 MON; Pulse Ox 99% ; ld5 11:48 Body Mass Index 25.61 (63.50 kg, 157.48 cm) ct3 MDM: 11:58 IV Saline Lock ordered. mcp 12:00 CBC with Diff Ordered. EDMS 12:00 MED Profile Ordered. EDMS 12:00 PT/INR Ordered. EDMS 12:16 DIGOXIN LEVEL Ordered. EDMS 12:16 VALPROIC ACID (DEPAKOTE) Ordered. EDMS 13:00 CBC with Diff Reviewed. pc 13:00 MED Profile Reviewed. pc 13:00 PT/INR Reviewed. pc 13:00 VALPROIC ACID (DEPAKOTE) Reviewed. pc 13:00 DIGOXIN LEVEL Reviewed. pc 13:01 DVT US Lower Ordered. EDMS 13:01 ECG WITH READING ER PHYS+CARDIAG ordered. EDMS 13:01 Differential Diagnosis: stasis dermatitis both LEs, swollen right calf r/o DVT; yellow pc blisters on LE r/o pemphigus. Plan: labs, imaging. 13:18 Test interpretation: EKG. pc 13:27 Wound Culture - Most Extremities Ordered. EDMS 14:29 DVT US Lower Reviewed. pc 14:38 [facility] Payment Agreement was scanned into [employer] and attached to record. 5 14:38 Financial registration complete. jp5 14:46 Data reviewed: old medical records, vital signs, nurses notes, lab test results, all pc radiology studies and available results. Data reviewed: EKG(s). Test interpretation: LAB - all labs as ordered have been reviewed, interpreted and considered in the overall management of the clinical presentation; Ultrasound - interpreted by Radiologist, Extremity Lower Right Normal. The patient has been re-examined and re-evaluated. There is no appreciated change of the patient's symptoms at this time. Physician consultation: Dr. Meredith Ortega was contacted at 14:46, regarding admission, and will see patient in ED. Disposition: The historical points, examination findings, and any diagnostic results supporting the provided diagnosis, were discussed with the patient or legal guardian. The need for further work-up and/or treatment in the hospital was explained. 14:47 BED REQUEST+ADM ordered. EDMS 14:56 Admission / Observation Status ordered. EDMS 14:57 2 GRAM SODIUM DIET ordered. EDMS 14:57 BASIC METABOLIC PROFILE Ordered. EDMS 14:57 CBC WITH DIFFERENTIAL Ordered. EDMS 14:58 WOUND CULTURE Ordered. EDMS 14:59 PHYSICAL THERAPY EVAL & TREAT ordered. EDMS 16:04 ERYTHROCYTE SEDIMENTATION RATE Ordered. EDMS 16:04 C REACTIVE PROTEIN QUANTITATIV Ordered. EDMS 16:37 BRAIN NATIURETIC PEPTIDE Ordered. EDMS 16:37 Chest, 2 view PA, Lat Ordered. EDMS 18:04 BASIC METABOLIC PROFILE Ordered. EDMS 18:18 ECHOCARD,DOPPLER/COLOR FLOW ordered. EDMS 18:34 Written Provider Order was scanned into [employer] and attached to record. deg 18:45 vancomycin 1 grams IVPB once over 60 mins; dilute in 250mL of NS or D5W ordered. ld5 EC:18 Rate is 69 beats/min. Rhythm is irregularly irregular, A fib. QRS Parks is Normal. QRS pc interval is normal. No Q waves. T waves are Normal. ST Segment is depressed in leads I, aVL, V3, V4, V5, V6, <1mm. Clinical impression: Nonspecific ST-T changes, Atrial Fibrillation w/o RVR, and LVH. No change from previous ECG in July,. Administered Medications: 18:45 Drug: vancomycin 1 grams [vancomycin 1,000 mg intravenous injection] Route: IVPB; ld5 Infused Over: 60 mins; Site: left antecubital; 18:45 Follow up: IV Status: Infusion continued upon admit ld5 Signatures: Dispatcher [employer] EDMS Ramirez Ricketts MD MD pc Murray, Denise, [employer] deg Trujillo, CristianJUANCARLOS cabezas RN, Staci, RN RN srm Isaías, Delmy, RN RN Erin Live,RN RN ld5 Maru Mckeon RN RN [facility]2 Enrrique Holbrook jp5 The chart was reviewed and I authenticate all verbal orders and agree with the evaluation and treatment provided.Corrections: (The following items were deleted from the chart) 12:01 11:58 Home Meds: torsemide 20 mg oral tab 2 tabs twice a day (Last Dose: 04/19/2016); dwg srm 12:16 12:00 DIGOXIN LEVEL+LAB ordered. EDMS EDMS 12:16 12:00 VALPROIC ACID (DEPAKOTE)+LAB ordered. EDMS EDMS 16:07 14:57 C REACTIVE PROTEIN QUANTITATIV ordered. EDMS EDMS 16:07 14:57 ERYTHROCYTE SEDIMENTATION RATE ordered. EDMS EDMS Attachments: 14:38 [facility] Payment Agreement jp5 18:34 Written Provider Order deg Chart Complete [facility]
--- NOTE | 2016-04-22 19:51 | EDDOCDS ---
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 saw PMD 1-2 days ago and legs are getting worse. blistered area to back of left calf. purulent drainage to right lower leg. Adult Sepsis Screening: The patient does not have new or worsening altered mentation. Patient's respiratory rate is less than 22. Systolic blood pressure is greater than 100. Patient has a qSOFA score of 0- Negative Sepsis Screen. Suicide/Homicide risk assessment- the patient denies having any suicidal and/or homicidal ideations and does not present with any other emotional, behavioral or mental health complaints. Status: Patient is not a medical service technician or dependent. Transition of care: patient was not received from another setting of care. 11:42 Method Of Arrival: Ambulance [facility] 11:42 Acuity: [place] Level 3 [facility] Triage Assessment: 11:45 General: Appears in no apparent distress, Behavior is appropriate for age, cooperative. srm Pain: Denies pain. Quality of pain is described as burning. Historical: - Allergies: PENICILLINS (Hives); - Home Meds: 1. divalproex 250 mg oral TbEC 2 times per day (Last dose: 04/19/2016) 2. warfarin 2.5 mg Oral tab 2.5mg every day but mon and fri (Last dose: 04/19/2016) 3. warfarin 5 mg Oral tab 1 tab once daily mon and fri 4. letrozole 2.5 mg oral tab 1 tab once daily (Last dose: 04/19/2016) 5. atenolol 50 mg Oral tab 1 tab once daily (Last dose: 04/19/2016) 6. Klor-Con 10 10 mEq Oral TbER 2 tabs once daily (Last dose: 04/19/2016) 7. spironolactone 25 mg Oral tab 0.5 tab (Last dose: 04/19/2016) 8. digoxin 125 mcg Oral tab once daily (Last dose: 04/19/2016) 9. simvastatin 20 mg Oral tab 1 tab hs (Last dose: 04/19/2016) 10. losartan 100 mg oral tab 1 tab once daily (Last dose: 04/19/2016) 11. venlafaxine 75 mg oral cp24 1 cap once daily (Last dose: 04/19/2016) 12. torsemide 20 mg oral tab 1 tab bid (Last dose: 04/19/2016) - PMHx: afib; bilateral breast cancer; Hypercholesterolemia; mood swings; Hypertension; - PSHx: Lumpectomy; radiation; - The history from nurses notes was reviewed: and I agree with what is documented. - Social history: No barriers to communication noted, The patient speaks fluent Bulgarian, Speaks appropriately for age, Smoking status: Patient states former smoker of tobacco. - : The pt / caregiver states he / she is on anticoagulants: Home medication list is obtained from the patient. - Hospitalizations: : No recent hospitalization is reported. - Exposure Risk Screening:: None identified. - Immunization history:: All immunizations up-to-date. - Family history: Not pertinent. - Social history:: the patient is a non-smoker, the patient does not drink alcohol. Screenin:46 Screening information is obtained from the patient. Fall risk: No risks identified. srm Assistance ADL's: requires no assistance with activities of daily living. Abuse/DV Screen: The patient / caregiver reports he/she is: not in a situation that causes fear, pain or injury. Nutritional screening: No deficits noted. Advance Directives: Currently, there is a health care proxy, emily burden. There is an active DNR order but there is no copy available at this time. home support is adequate. Assessment: 12:03 Derm: bilateral lower leg redness, swelling into feet. pedal pulses palpable. +3 pitted srm edema top both feet. large un popped blister to back of left calf. open draining area to right lower leg. 13:00 General: Appears uncomfortable, Behavior is cooperative. Pain: Location: right leg and mcp left leg Pain currently is 6 out of 10 on a pain scale. Neurological: No deficits noted. Respiratory: Airway is patent Respiratory effort is even, unlabored. Derm: Skin is pink, warm & dry. Musculoskeletal: Circulation, motion, and sensation intact Swelling present in right leg and left leg. 14:00 General: Appears uncomfortable, Behavior is cooperative. Neurological: No deficits mcp noted. Respiratory: Airway is patent Respiratory effort is even, unlabored. Derm: Skin is pink, warm & dry. 15:00 General: Appears in no apparent distress, Behavior is cooperative. Neurological: No mcp deficits noted. Respiratory: Airway is patent Respiratory effort is even, unlabored. Derm: Skin is pink, warm & dry. Musculoskeletal: Circulation, motion, and sensation intact Swelling present in right leg and left leg. 15:20 General: Appears in no apparent distress, Behavior is cooperative, pleasant. Pain: ld5 Location: right lakhani and left lakhani Pain currently is 5 out of 10 on a pain scale. Neurological: Level of Consciousness is awake, alert. Cardiovascular: Edema pitting to right foot, left foot. Respiratory: Airway is patent Respiratory effort is even, unlabored, Breath sounds are clear bilaterally. 15:30 Derm: open area to right lakhani, bilateral shins and feet red and warm to the touch. ld5 16:20 General: Appears in no apparent distress, Pt resting comfortably in bed. No apparent ld5 distress. Pt aware of plan for admission. Denies any needs at this time. Will continue to monitor. 17:04 General: Pt up to commode. Tolerated well. Will continue to monitor. ld5 17:48 General: Appears in no apparent distress, Behavior is cooperative, pleasant. ld5 Neurological: Level of Consciousness is awake, obeys commands. Respiratory: Airway is patent Respiratory effort is even, unlabored. 18:46 General: Pt ate dinner. Tolerated well. Will continue to monitor. ld5 Vital Signs: 11:48 BP 119 / 63; Pulse 68; Resp 18; Temp 97.8(O); Pulse Ox 100% on R/A; Weight 63.5 kg (R); ct3 Height 5 ft. 2 in. (157.48 cm) (R); Pain 10/10; 16:36 Pulse 70 MON; Pulse Ox 99% ; ld5 16:45 BP 128 / 72; Pulse 66; Resp 18; Temp 98; Pulse Ox 99% on R/A; ld5 17:28 BP 128 / 72 (auto/); ld5 17:50 Pulse 72 MON; Pulse Ox 99% ; ld5 11:48 Body Mass Index 25.61 (63.50 kg, 157.48 cm) ct3 Vitals: 11:48 Log In Time N/A - ambulance arrival. ct3 ED Course: 11:40 Patient visited by Ashlie Cortes Fairing Worker. deg 11:40 Patient moved to Waiting deg 11:41 Patient moved to 1 deg 11:44 Triage Initiated srm 11:46 The patient / caregiver is instructed regarding the plan of care and ED course. Patient srm has correct armband on for positive identification. Placed in gown. Bed in low position. Call light in reach. Side rails up X 1. hospital monitor on. Pulse ox on. NIBP on. 11:49 Patient visited by Yesenia Esquivel PCA. ct3 11:58 Patient visited by Tiffanie Nash RN. srm 12:03 PT/INR Sent. srm 12:03 MED Profile Sent. srm 12:03 CBC with Diff Sent. srm 12:04 Patient visited by Tiffanie Nash RN. srm 12:04 Inserted saline lock: 20 gauge in left antecubital area and blood collected. The [facility] patient tolerated the procedure well. by Kelly Metz rn. 12:19 VALPROIC ACID (DEPAKOTE) Sent. srm 12:19 DIGOXIN LEVEL Sent. srm 12:33 Ramirez Ricketts MD is Attending Physician. pc 12:35 Patient visited by Ramirez Ricketts MD. pc 13:17 EKG done. (by ED staff). Reviewed by Ramirez Ricketts MD. ls3 13:21 Patient visited by Yesenia Esquivel PCA. ct3 13:35 Patient moved to Ultrasound am10 13:55 Patient moved to 1 am10 14:25 Patient visited by Yesenia Esquivel PCA. ct3 14:28 DVT US Lower Returned. EDMS 14:38 [facility] Payment Agreement was scanned into [employer] and attached to record. jp5 14:48 Meredith Ortega is Hospitalizing Provider. pc 15:07 Patient visited by Delmy Metz RN. mcp 15:47 Patient moved to Admit Hold dwg 17:04 Patient visited by Erin Kay,JUANCARLOS. ld5 17:12 Patient visited by Hannah Ramos. dem1 17:12 Assisted to bedside commode. dem1 17:49 Patient visited by Erin Kay,JUANCARLOS. ld5 18:21 Chest, 2 view PA, Lat Returned. EDMS 18:34 Written Provider Order was scanned into [employer] and attached to record. deg 18:48 No procedures done that require assistance. ld5 18:49 WOUND CULTURE Sent. ld5 18:50 Patient visited by Erin Kay RN. ld5 Administered Medications: 18:45 Drug: vancomycin 1 grams [vancomycin 1,000 mg intravenous injection] Route: IVPB; ld5 Infused Over: 60 mins; Site: left antecubital; 18:45 Follow up: IV Status: Infusion continued upon admit ld5 Order Results: Lab Order: CBC with Diff; SPEC'M 04/20/16 11:54 Test: WHITE BLOOD COUNT; Value: 5.9; Range: 4.0-10.0; Units: K/mm3; Status: F Test: RED BLOOD COUNT; Value: 4.19; Range: 4.00-5.40; Units: M/mm3; Status: F Test: HEMOGLOBIN; Value: 12.6; Range: 12.0-16.0; Units: g/dl; Status: F Test: HEMATOCRIT; Value: 37.1; Range: 36.0-47.0; Units: %; Status: F Test: MEAN CORPUSCULAR VOLUME; Value: 88.6; Range: 80.0-96.0; Units: fl; Status: F Test: MEAN CORPUSCULAR HEMOGLOBIN; Value: 30.0; Range: 27.0-33.0; Units: pg; Status: F Test: MEAN CORPUSCULAR HGB CONC; Value: 33.9; Range: 32.0-36.5; Units: g/dl; Status: F Test: RED CELL DISTRIBUTION WIDTH; Value: 14.6; Range: 11.5-14.5; Abnormal: Above high normal; Units: %; Status: F Test: PLATELET COUNT, AUTOMATED; Value: 197; Range: 150-450; Units: k/mm3; Status: F Test: NEUTROPHILS %; Value: 78.9; Range: 36.0-66.0; Abnormal: Above high normal; Units: %; Status: F Test: LYMPH %; Value: 11.0; Range: 24.0-44.0; Abnormal: Below low normal; Units: %; Status: F Test: MONO %; Value: 6.2; Range: 0.0-5.0; Abnormal: Above high normal; Units: %; Status: F Test: EOS %; Value: 1.1; Range: 0.0-3.0; Units: %; Status: F Test: BASO %; Value: 0.3; Range: 0.0-1.0; Units: %; Status: F Test: LARGE UNSTAINED CELL %; Value: 2.4; Range: 0.0-4.0; Units: %; Status: F Test: NEUTROPHILS #; Value: 4.7; Range: 1.8-7.7; Units: K/mm3; Status: F Test: LYMPH #; Value: 0.7; Range: 1.5-4.5; Abnormal: Below low normal; Units: K/mm3; Status: F Test: MONO #; Value: 0.4; Range: 0.0-0.8; Units: K/mm3; Status: F Test: EOS #; Value: 0.1; Range: 0.0-0.50; Units: K/mm3; Status: F Test: BASO #; Value: 0.0; Range: 0.0-0.2; Units: K/mm3; Status: F Test: LARGE UNSTAINED CELL #; Value: 0.1; Range: 0.0-0.4; Units: K/mm3; Status: F Lab Order: MED Profile; SPEC'M 04/20/16 11:54 Test: GLUCOSE, FASTING; Value: 100; Range: 83-110; Units: MG/DL; Status: F Test: BLOOD UREA NITROGEN; Value: 63; Range: 7-18; Abnormal: Above high normal; Units: MG/DL; Status: F Test: CREATININE FOR GFR; Value: 1.64; Range: 0.55-1.02; Abnormal: Above high normal; Units: MG/DL; Status: F Test: GLOMERULAR FILTRATION RATE; Value: 31.5; Range: >32; Abnormal: Below low normal; Status: F Test: SODIUM LEVEL; Value: 139; Range: 136-145; Units: MEQ/L; Status: F Test: POTASSIUM SERUM; Value: 3.7; Range: 3.5-5.1; Units: MEQ/L; Status: F Test: CHLORIDE LEVEL; Value: 103; Range: 98-107; Units: MEQ/L; Status: F Test: CARBON DIOXIDE LEVEL; Value: 31; Range: 21-32; Units: MEQ/L; Status: F Test: ANION GAP; Value: 5; Range: 8-16; Abnormal: Below low normal; Units: MEQ/L; Status: F Test: CALCIUM LEVEL; Value: 8.7; Range: 8.8-10.2; Abnormal: Below low normal; Units: MG/DL; Status: F Test Note: ; Units are mL/min/1.73 m2 Chronic Kidney Disease Staging per NKF: Stage I & II GFR >=60 Normal to Mildly Decreased Stage III GFR 30-59 Moderately Decreased Stage IV GFR 15-29 Severely Decreased Stage V GFR <15 Very Little GFR Left ESRD GFR <15 on PARTITION SETTER Lab Order: PT/INR; 04/20/16 11:54 Test: PROTHROMBIN TIME; Value: 21.0; Range: 12.3-14.5; Abnormal: Above high normal; Units: SECONDS; Status: F Test: INR; Value: 1.80; Status: F Test Note: ; THERAPUTIC HUMAN INR VALUES INDICATIONS NORMAL RANGES PROPHYLAXIS/TREATMENT OF: VENOUS THROMBOSIS 2.0-3.0 PULMONARY EMBOLISM 2.0-3.0 PREVENTION OF SYSTEMIC EMBOLISM FROM: TISSUE HEART VALVES 2.0-3.0 ACUTE MYOCARDIAL INFARCTION 2.0-3.0 VALVULAR HEART DISEASE 2.0-3.0 ATRIAL FIBRILLATION 2.0-3.0 MECHANICAL VALVES(HIGH RISK) 2.5-3.5 RECURRENT MYOCARDIAL INFARCTION 2.5-3.5 Lab Order: DIGOXIN LEVEL; 04/20/16 11:54 Test: DIGOXIN LEVEL; Value: 0.9; Range: 0.5-2.0; Units: NG/ML; Status: F Lab Order: VALPROIC ACID (DEPAKOTE); 04/20/16 11:54 Test: VALPROIC ACID (DEPAKOTE); Value: 34.8; Range: 50.0-100.0; Abnormal: Below low normal; Units: UG/ML; Status: F Lab Order: ERYTHROCYTE SEDIMENTATION RATE; 04/20/16 11:54 Test: ERYTHROCYTE SEDIMENTATION RATE; Value: 35; Range: 0-42; Units: mm/hr; Status: F Lab Order: C REACTIVE PROTEIN QUANTITATIV; SPEC'M 04/20/16 11:54 Test: C REACTIVE PROTEIN QUANTITATIV; Value: 1.87; Range: 0.00-0.30; Abnormal: Above high normal; Units: MG/DL; Status: F Lab Order: BRAIN NATIURETIC PEPTIDE; SPEC'M 04/20/16 11:54 Test: BRAIN NATRIURETIC PEPTIDE; Value: 287; Range: <100; Abnormal: Above high normal; Units: PG/ML; Status: F Radiology Order: DVT US Lower Test: DVT US Lower REASON FOR EXAMINATION: Deformity/Swelling; Clinical: Deformity and swelling.; ; Technique: Duran scale and color Doppler evaluation using linear high frequency; transducer.; ; Findings:; Ultrasound examination of the right lower extremity deep venous structures from; the common femoral vein to the popliteal vein demonstrates normal compressibility; flow and wave patterns in response to respiration and augmentation. There is no; evidence for deep venous thrombosis.; ; Impression:; No evidence for deep venous thrombosis.; ; ; Signed by; Don Rabago MD 04/20/2016 02:02 P; Radiology Order: Chest, 2 view PA, Lat Test: Chest, 2 view PA, Lat REASON FOR EXAMINATION: sob; Clinical: Shortness of breath.; ; Technique: AP and lateral.; ; Comparison: 08/01/2013.; ; Findings:; Mediastinum and cardiac silhouette stable. Lung balnk demonstrate diffuse; chronic fibrosis and interstitial changes without obvious acute consolidation,; effusion, or pneumothorax. Skeletal structures demonstrate osteopenia and; degenerative changes including old healed right humerus fracture.; ; Impression:; Diffuse chronic changes. No obvious acute cardiopulmonary process; ; ; Signed by; Don Rabago MD 04/20/2016 05:25 P; Outcome: 14:48 Decision to Hospitalize by Provider. pc 18:48 Discharge Assessment: Patient awake, alert and oriented x 3. No cognitive and/or ld5 functional deficits noted. Patient verbalized understanding of disposition instructions. patient administered narcotics - no. The following High Risk Discharge criteria are identified: None. Admitted to Med/Surg accompanied by tech, via stretcher, with chart. Condition: stable. No special radiology studies were completed. Property :Personal belongings accompany Pt. 18:50 Patient left the ED. ld5 Signatures: Dispatcher [employer] EDMS Ramirez Ricketts MD MD pc Murray, Denise, Fairing Worker Unit deg Cristian Trujillo RN RN dwg Tiffanie Nash RN RN srm Delmy Metz RN RN mcp Monnat, Ashley am10 Erin Kay RN RN ld5 Yesenia Esquivel, FISHING LURE ASSEMBLER FISHING LURE ASSEMBLER ct3 Richard, Demeishia dem1 Enrrique Holbrook jp5 Jessica Mason, FISHING LURE ASSEMBLER FISHING LURE ASSEMBLER ls3 Corrections: (The following items were deleted from the chart) 12: 11:58 Home Meds: torsemide 20 mg oral tab 2 tabs twice a day (Last Dose: 04/19/2016); dwg srm 12:16 12:03 VALPROIC ACID (DEPAKOTE)+LAB sent. srm EDMS 12:16 12:03 DIGOXIN LEVEL+LAB sent. srm EDMS Chart Complete MTDD
[2016-04-22] MEDS: DIGOXIN 0.125 MG TAB PO SCH (21:21)
[2016-04-22] MEDS: SIMVASTATIN 20 MG TAB PO SCH (21:21)
[2016-04-22] MEDS: ATENOLOL 50 MG TAB PO SCH (21:22)
[2016-04-22 22:00] VITALS: BP 136/64
[2016-04-23] MEDS: ACETAMINOPHEN TAB 650MG DOSE (2X325MG) PO PRN ×2 (01:32→20:31)
[2016-04-23 06:00] VITALS: BP 142/63
[2016-04-23 06:29] LABS: INR 2.29
[2016-04-23 08:00] VITALS: BP 153/72
[2016-04-23] MEDS: LACTOBACILLUS ACIDOPHILUS CAP (BACID) PO SCH ×2 (09:41→17:17)
[2016-04-23] MEDS: DIVALPROEX 250 MG TAB PO SCH ×2 (09:41→20:16)
[2016-04-23] MEDS: VENLAFAXINE **XR** 75MG CAPSULE PO SCH (09:41)
[2016-04-23] MEDS: SANTYL OINT 30GM TOP SCH (09:41)
[2016-04-23] MEDS: VITAMIN D 1,000 INTERNATIONAL UNITS TABLET PO SCH (12:07)
[2016-04-23] MEDS: VANCOMYCIN HCL 1,000 MG, VIAL MATE ADAPTER 1 EACH in D5W 250 ML IV SCH (12:07)
--- NOTE | 2016-04-23 14:25 | IPNPDOC ---
Text Note Date of Service The patient was seen on 04/23/16 at 14:22. NOTE Subjective: No acute changes overnight. Ambulating. Denies any chest pain/ palpitations. Objective: Vitals: (see below) General: No acute distress, laying comfortably in bed. HEENT: Moist mucous membranes. Neck: No JVD or lymphadenopathy Cardiac: RRR, No murmurs Pulm: Clear to auscultation b/l. No wheezing, rhonchi Abd: NT/ND + BS Ext: Multiple LE venous stasis ulcers, with surrounding cellulitis which is improving. Distal pulses intact. Labs (see below) Images: CXR 04/20/16 Impression: Diffuse chronic changes. No obvious acute cardiopulmonary process Doppler u/s 04/20/16 Impression: No evidence for deep venous thrombosis. Assessment/Plan 1. Bilateral lower extremity venous stasis ulcers with underlying cellulitis- continue IV vancomycin. Wound culture sent for sensitivity, still pending. Elevation of her lower extremities. Wound care consult by Dr. Curran appreciated. Trend WBCs and CRP. Lower 70 ultrasound negative for DVT. 2. Acute kidney injury- improving. Baseline creatinine of 1. Diuretics have initially been held, but will be restarted 1/2 the dose of torsemide. 3. Hypertension- losartan and torsemide were held given the renal failure. We will continue to monitor. 4. History of breast cancer status post lumpectomy and radiation. Continue letrozole. Will need outpatient oncology follow-up 5. Hyperlipidemia- continue statin 6. Atrial fibrillation on Coumadin DVT prophy: Coumadin VS,Fishbone, I+O VS, Fishbone, I+O Vital Signs Date Time Temp Pulse Resp B/P Pulse Ox O2 Delivery O2 Flow Rate FiO2 04/23/16 06:00 98.3 70 20 142/63 96 Room Air I&O- Last 24 Hours up to 6 AM 04/23/16 06:00 Intake Total 2280 ml Output Total 2000 ml Balance 280 ml GINNA COX MD Apr 23, 2016 14:25
[2016-04-23] MEDS: TORSEMIDE 20 MG TAB PO SCH (17:17)
[2016-04-23] MEDS: WARFARIN SOD 2.5 MG TAB PO SCH (17:18)
[2016-04-23] MEDS: LETROZOLE 2.5 MG TAB PO SCH (17:18)
[2016-04-23 20:13] VITALS: BP 114/56
[2016-04-23] MEDS: SIMVASTATIN 20 MG TAB PO SCH (20:14)
[2016-04-23 20:15] VITALS: BP 115/56
[2016-04-23] MEDS: ATENOLOL 50 MG TAB PO SCH (20:15)
[2016-04-23] MEDS: DIGOXIN 0.125 MG TAB PO SCH (20:15)
[2016-04-23 22:00] VITALS: BP 137/62
[2016-04-24] MEDS: VANCOMYCIN HCL 1,000 MG, VIAL MATE ADAPTER 1 EACH in D5W 250 ML IV SCH (05:50)
[2016-04-24 06:00] VITALS: BP 150/67
[2016-04-24 06:53] LABS: INR 2.95
[2016-04-24] MEDS: SANTYL OINT 30GM TOP SCH (09:00)
[2016-04-24] MEDS ORDERED: BACTRIM 160MG/800MG DS TAB PO SCH (09:00)
[2016-04-24] MEDS: LACTOBACILLUS ACIDOPHILUS CAP (BACID) PO SCH (10:00)
[2016-04-24] MEDS: DIVALPROEX 250 MG TAB PO SCH (10:00)
[2016-04-24] MEDS: VENLAFAXINE **XR** 75MG CAPSULE PO SCH (10:00)
[2016-04-24] MEDS: TORSEMIDE 20 MG TAB PO SCH (10:01)
--- NOTE | 2016-04-24 11:07 | REP ---
BILATERAL LOWER EXTREMITY DUPLEX VENOUS ULTRASOUND: HISTORY: Standing reflux study. Evaluate venous hypertension. Comparison right lower extremity duplex venous ultrasound from April 20, 2016. FINDINGS: Compression Doppler assisted sonography of the left lower extremity shows anechoic fully compressible deep veins from the groin to the popliteal fossa. Color flow and spectral Doppler interrogation show no evidence of DVT. Reflux portion of the examination: In the right lower extremity venous reflux is observed in the common femoral vein, 4.3 seconds in duration. Reflux was noted in the proximal superficial femoral vein and mid superficial femoral vein, 2.4 seconds in duration, and in the popliteal vein greater than 0.5 seconds in duration. Reflux is observed in the lesser saphenous vein , 5.8 seconds in duration. The right greater saphenous vein measures 5 mm in AP dimension at the saphenofemoral junction, 3 mm at midthigh, 1.4 mm at the knee. The lesser saphenous vein measures 6 mm in AP dimension. Reflux was not observed in the greater saphenous vein. On the left, there is reflux greater than 0.5 seconds in duration in the common femoral vein. There is 3.8 second duration reflux in the greater saphenous vein at the saphenofemoral junction, 1.8 seconds in duration at midthigh, and 3.3 seconds in duration in the proximal superficial femoral vein. 5 seconds of reflux was observed in the lesser saphenous vein. The greater saphenous vein measures 6 mm in AP dimension at the saphenofemoral junction, 3 mm in AP dimension at mid thigh, and 4 mm in AP dimension at the knee. The lesser saphenous vein measures 4 mm in AP dimension. The greater saphenous vein appears to be duplicated at midthigh level with reflux seen in the larger branch. IMPRESSION: Bilateral lower extremity reflux. Signed by Jorge Poe MD 04/24/2016 01:36 P
[2016-04-24] MEDS ORDERED: Collagenase TOP (11:51)
[2016-04-24] MEDS ORDERED: BACT800T5 PO (12:44)
[2016-04-24] MEDS ORDERED: TORS20TA2 PO (12:45)
--- NOTE | 2016-04-24 16:02 | DS.PDOC ---
Discharge Summary General Date of Admission Apr 20, 2016 at 14:51 Date of Discharge Apr 24, 2016 at 13:32 Attending Physician: GINNA COX MD Specialist/Consultants Involve: Kemal Curran MD Discharge Summary PROCEDURES PERFORMED DURING STAY: None. COMPLICATIONS/CHIEF COMPLAINT: Lower Extremity Cellulitis ADMISSION/DISCHARGE DIAGNOSES: 1. Bilateral lower extremity cellulitis with underlying venous stasis ulcers 2. Acute kidney injury 3. Atrial fibrillation 4. Hypertension 5. History of bilateral breast cancer status post lumpectomy and radiation 6. Hyperlipidemia 7. Hypertension HISTORY OF PRESENT ILLNESS/HOSPITAL COURSE: This is a 85-year-old female past medical history of bilateral venous stasis ulcers in the lower extremities, atrial fibrillation, hypertension comes in complaining of redness and pain in her lower extremity. Patient was found to have bilateral lower extremity cellulitis surrounding her venous stasis ulcers. She does have bilateral lower extremity ultrasound which was negative for DVT. She was started on vancomycin with significant relief and improvement of her cellulitis. Her leukocytosis and CRP have significantly improved as well. She did have an evaluation by Dr. Curran, and we appreciate his recommendations. She also had an ultrasound of her lower extremities for evaluation of her vascular valves, and this will be followed up with Dr. Curran in the clinic. The patient's wound culture was positive for Enterobacter as well as MSSA. There was Pseudomonas Putida with no susceptibilities, as well as staph salivarius. Given that the patient has responded very well to vancomycin and her Enterobacter and MSSA was susceptible to Bactrim, she has been prescribed this renally dosed for an additional 5 days. Patient also had infiltration of her IV site in her right hand. She does have some mild bruising. Distal pulses were intact. Capillary refill less than 2 seconds. Patient states that this is significantly improved with elevation and ice packs. Patient states she will be following up with her primary care physician if she does not continue to notice improvement. DISCHARGE MEDICATIONS: Please see below. ALLERGIES: Please see below. PHYSICAL EXAMINATION ON DISCHARGE: Vitals: (see below) General: No acute distress, laying comfortably in bed. HEENT: Moist mucous membranes. Neck: No JVD or lymphadenopathy Cardiac: RRR, No murmurs Pulm: Clear to auscultation b/l. No wheezing, rhonchi Abd: NT/ND + BS Ext: Multiple LE venous stasis ulcers, with surrounding cellulitis which is improving. Distal pulses intact. Right hand bruising after infiltration of a peripheral IV. Ice was applied and there was significant reduction in the swelling. Distal pulses intact. Capillary refill less than 2 seconds. No bleeding noted. LABORATORY DATA: Please see below. IMAGING: Images: CXR 04/20/16 Impression: Diffuse chronic changes. No obvious acute cardiopulmonary process Doppler u/s 04/20/16 Impression: No evidence for deep venous thrombosis. VTE Prophylaxis ordered?: Yes DISCHARGE CONDITION: Stable DISPOSITION: Home Health Service ACTIVITY: As tolerated DIET: Low-sodium DISCHARGE PLAN AND INSTRUCTIONS: 1. Follow-up with PCP and Dr. Curran 1-2 weeks. TIME SPENT ON DISCHARGE: Greater than 30 minutes. Vital Signs/I&Os Vital Signs Date Time Temp Pulse Resp B/P Pulse Ox O2 Delivery O2 Flow Rate FiO2 04/24/16 06:00 98.8 70 20 150/67 94 Room Air I&O- Last 24 Hours up to 6 AM 04/24/16 06:00 Intake Total 1920 ml Output Total 1600 ml Balance 320 ml Laboratory Data Labs 24H Laboratory Tests 2 04/24/16 06:06: Prothromb Time International Ratio 2.95, Prothrombin Time 30.8H Microbiology Microbiology 04/20/16 Wound Culture - Preliminary, Resulted Pseudomonas Putida Enterobacter Cloacae Complex Staphylococcus Aureus Streptococcus Salivarius Medications Scheduled (Klor-Con Sprinkle) 10 Meq Cap 20 MEQ PO DAILY (Restasis) 0.05 % Emu 1 DROP OU BID (Krill Oil 1000 mg) 1 Cap Cap 1 CAP PO DAILY NOONTIME ([Collagenase]) 1 DOSE/30 GM OINT 1 DOSE TOP DAILY Atenolol (Atenolol) 50 Mg Tab 50 MG PO QHS Cholecalciferol (Vitamin D) 1,000 Unit Tab 1,000 UNIT PO DAILY NOONTIME Digoxin (Digoxin) 0.125 Mg Tab 0.125 MG PO QPM DINNERTIME Divalproex Sodium (Divalproex Sodium Dr) 250 Mg Tab 250 MG PO BID Letrozole (Letrozole) 2.5 Mg Tab 2.5 MG PO QPM DINNERTIME Losartan Potassium (Losartan Potassium) 100 Mg Tab 100 MG PO QHS Simvastatin (Simvastatin) 20 Mg Tab 20 MG PO QHS Torsemide (Torsemide) 20 Mg Tab 20 MG PO BID Trimethoprim/Sulfamethoxazole (Bactrim Ds 800-160 mg) 1 Tab Tab 1 TAB PO DAILY Venlafaxine HCl (Venlafaxine HCl ER) 75 Mg Cap 75 MG PO DAILY Warfarin Sod (Warfarin Sodium) 2.5 Mg Tab 2.5 MG PO 5XW DINNERTIME: SUN, TUES, WED, , SAT Warfarin Sod (Warfarin Sodium) 5 Mg Tab 5 MG PO 2XW DINNERTIME: MON, FRI Allergies Coded Allergies: Penicillins (Verified Allergy, Intermediate, HIVES, 07/10/12) HIVES Sulfa Drugs (Verified Allergy, Intermediate, HIVES, 04/24/16) GINNA COX MD Apr 24, 2016 16:02
== END 2016-04-24 13:32 | disposition home health service (06) | DRG 603 ==
LOC: M ED 11:39 → M ED INP 14:51 → M MS5PR 18:55
PROVIDERS: ADMIT General Practice; ATTEND Internal Medicine
DX: L03.115 Cellulitis of right lower limb (principal); N17.9 Acute kidney failure, unspecified; L03.116 Cellulitis of left lower limb; Z66 Do not resuscitate; I83.029 Varicose veins of left lower extremity with ulcer of unspecified site; I48.91 Unspecified atrial fibrillation; I10 Essential (primary) hypertension; F34.1 Dysthymic disorder; E78.00 Pure hypercholesterolemia, unspecified; E78.5 Hyperlipidemia, unspecified; I50.9 Heart failure, unspecified; Z85.3 Personal history of malignant neoplasm of breast; Z92.3 Personal history of irradiation; B95.61 Methicillin susceptible Staphylococcus aureus infection as the cause of diseases classified elsewhere; B95.4 Other streptococcus as the cause of diseases classified elsewhere; B96.5 Pseudomonas (aeruginosa) (mallei) (pseudomallei) as the cause of diseases classified elsewhere; Z79.899 Other long term (current) drug therapy; Z79.01 Long term (current) use of anticoagulants; Z88.0 Allergy status to penicillin; Z88.2 Allergy status to sulfonamides; Z96.652 Presence of left artificial knee joint; Z96.651 Presence of right artificial knee joint

== ENCOUNTER 2016-04-28 22:37 | Emergency (ER) | payer MEDICARE ==
[~2016-04-28 22:37] MED LIST changes: +ATEN50TA2 PO; +BACT800T5 PO; +Collagenase TOP; +DIGO0.12 PO; +KLOR1CAP2 PO; +KRIL1000 PO; +LETR2.5T PO; +LOSA100T36 PO; +REST0.05 OU; +SIMV20TA2 PO; +SPIR25TA2 PO; +TORS20TA2 PO; +VENL75CA PO; +VITA100066 PO; +WARF-18 PO; +WARF-23 PO
--- NOTE | 2016-04-28 23:30 | REPUSA ---
CT of the head Clinical history: trauma. Protocol: Multiple axial CT images obtained with 5 mm slice thickness were obtained through the head without administration of contrast. Findings: The ventricles and sulci are symmetric but prominent in size bilaterally. There are periven tricular areas of low attenuation throughout the deep white matter. There is no evidence of acute hem orrhage or infarct. There is no midline shift, mass effect, or extra-axial fluid collection. The osse ous structures are unremarkable. The visualized paranasal sinuses and mastoid air cells are clear. Impression: No acute hemorrhage or infarct. 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
--- NOTE | 2016-04-28 23:30 | REPUSA ---
CT of the cervical spine Clinical history: trauma. Technique: Multiple axial CT images were obtained through the cervical spine without administration o f contrast. Coronal and sagittal 3-D reconstructed images were also obtained. Comparison: None. Findings: The cervical vertebral bodies are in satisfactory positioning and alignment. No fractures or dislocat ions are demonstrated. The odontoid process is intact. Intervertebral disc spaces are narrowed throug hout, but severely narrowed at C5/C6 and C6/C7, where there are disc osteophyte complexes appreciated . These disc osteophyte cause moderate narrowing of the neural foramen bilaterally. Severe bilateral facet arthropathy is noted. There is no evidence of facet subluxation. The other neural foramen appea r grossly patent. The cervical cranial junction is intact. The cervical spinal canal demonstrates nor mal caliber and contour without evidence of spinal stenosis. The surrounding soft tissues are within normal limits. Impression: No acute fracture or traumatic injury. Diffuse multilevel degenerative disc disease, most severe at C5/C6 and C6/C7, where disc osteophyte complexes causing moderately severe bilateral neura l foraminal narrowing. Diffuse severe facet arthropathy is noted without evidence of subluxation.
--- NOTE | 2016-04-29 00:06 | EDDOCDS ---
Nurse's Notes [facility] Name: Pretty Pierre Age: 85 yrs Sex: Female : 1930 Arrival Date: 04/28/2016 Time: 22:37 Bed 6 Private MD: Eliseo Serra Diagnosis: Contusion of unspecified part of head Presentation: 04/28 22:46 Presenting complaint: EMS states: Pt is taking coumadin; was walking at home and lost js15 balance and fell; states that she hit her head and just wants to check for bleeding; complains of mild right neck pain. Adult Sepsis Screening: The patient does not have new or worsening altered mentation. Patient's respiratory rate is less than 22. Suicide/Homicide risk assessment- the patient denies having any suicidal and/or homicidal ideations and does not present with any other emotional, behavioral or mental health complaints. 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 Transition of care: patient was not received from another setting of care. 22:46 Acuity: [place] Level 4 15 22:46 Method Of Arrival: Ambulance 15 22:56 Adult Sepsis Screening: Patient has a qSOFA score of 0- Negative Sepsis Screen. js15 Triage Assessment: 22:51 General: Appears in no apparent distress, Behavior is appropriate for age, cooperative. js15 Pain: Location: right lateral aspect of neck. The patient is triaged at the bedside. See Assessment in Nurses Notes section of ED record. Neurological: Level of Consciousness is awake, alert, obeys commands, Oriented to person, place, time. Respiratory: Airway is patent Respiratory effort is even, unlabored, Respiratory pattern is regular, symmetrical. Derm: Skin is intact, Skin is dry, Skin temperature is warm Bruising that is dark purple, on right hand. Musculoskeletal: Reports pain in right lateral aspect of neck. Historical: - Allergies: PENICILLINS (Hives); SULFA (SULFONAMIDES); - Home Meds: 1. atenolol 50 mg Oral tab 1 tab once daily 2. digoxin 125 mcg Oral tab once daily 3. divalproex 250 mg oral TbEC 2 times per day 4. Klor-Con 10 10 mEq Oral TbER 2 tabs once daily 5. letrozole 2.5 mg oral tab 1 tab once daily 6. losartan 100 mg oral tab 1 tab once daily 7. simvastatin 20 mg Oral tab 1 tab HS 8. spironolactone 25 mg Oral tab 0.5 tab 9. torsemide 20 mg oral tab 1 tab bid 10. venlafaxine 75 mg oral cp24 1 cap once daily 11. warfarin 2.5 mg Oral tab 2.5mg every day but mon and fri 12. warfarin 5 mg Oral tab 1 tab once daily mon and fri - PMHx: afib; bilateral breast cancer; Hypercholesterolemia; Hypertension; mood swings; - PSHx: Knee Arthroplasty, Left; Knee Arthroplasty, Right; Lumpectomy- Left; Lumpectomy- Right; radiation; - Social history: Smoking status: Patient states was never smoker of tobacco. No barriers to communication noted, The patient speaks fluent Tristanian, Speaks appropriately for age. - Family history: Not pertinent. - : The pt / caregiver states he / she is on anticoagulants: coumadin. Home medication list is obtained from the patient, [employer] import data. - Exposure Risk Screening:: None identified. Screenin:55 Screening information is obtained from the patient. Fall risk: At risk due to age, js15 prior history of falls, The following interventions are performed due to a positive Fall Risk Screen: Fall Risk is added to Special Handling on the patient Summary Screen. A Fall Risk Bracelet was applied to the patient. Side Rails are placed in the up position. A Call Cotton is given with instruction to call for help when getting out of bed. Assistance ADL's: requires no assistance with activities of daily living. Abuse/DV Screen: The patient / caregiver reports he/she is: not in a situation that causes fear, pain or injury. Nutritional screening: No deficits noted. Advance Directives: There is an active DNR order but there is no copy available at this time. Advance Directives: Currently, there is a health care proxy, Tank Tanner-SON. home support is adequate. Assessment: 22:56 General: see triage note. js15 04/29 00:03 General: Appears in no apparent distress, comfortable, Behavior is cooperative, cally pleasant. Neurological: No deficits noted. Level of Consciousness is awake, alert, obeys commands, Oriented to person, place, time, Speech is normal. Derm: Skin is pink, warm & dry. Vital Signs: 04/28 22:52 BP 124 / 77 RA Supine (auto/reg); Pulse 90 MON; Resp 22 S; Temp 97.8(TE); Pulse Ox 100% cln on R/A; Weight 68.04 kg (R); Height 5 ft. 2 in. (157.48 cm) (R); Pain 4/10; 23:48 BP 153 / 67; Pulse 88; Resp 20; Temp 97(O); Pulse Ox 95% on R/A; Pain 0/10; cally 22:52 Body Mass Index 27.44 (68.04 kg, 157.48 cm) cln Vitals: 22:51 Log In Time N/A - ambulance arrival. js15 ED Course: 22:42 Patient visited by Nery Munoz, Excel Specialist. ml3 22:42 Eliseo Serra MD is Private Physician. ml3 22:42 Azam Mason DO is Attending Physician. cs11 22:42 Patient visited by Azam Mason DO. cs11 22:42 Patient moved to Waiting ml3 22:42 Patient moved to 6 ml3 22:45 Roberta Pena,RN is Primary Nurse. js15 22:49 Triage Initiated js15 22:54 Patient visited by Carolina Traore PCA. cln 22:54 Pt greeted and oriented to ED. Patient advised of names of staff involved in care, cln location of call cotton, wait times and NPO status. Patient has correct armband on for positive identification. Placed in gown. Bed in low position. Call light in reach. Side rails up X 1. 22:54 Maintain field IV. Dressing intact. Site clean & dry. Gauge & site: 20 G LAC. js15 23:34 Eliseo Serra MD is Referral Physician. cs11 23:43 The patient / caregiver is instructed regarding the plan of care and ED course. js15 23:43 No procedures done that require assistance. js15 23:49 Discontinued lock bleeding controlled, pressure dressing applied, No redness/swelling cally at site. Order Results: There are currently no results for this order. Outcome: 23:34 Discharge ordered by Provider. cs11 04/29 00:04 Discharge Assessment: patient administered narcotics - no. The following High Risk cally Discharge criteria are identified: None. Discharged to home via wheelchair. Condition: stable. Discharge instructions given to patient, Instructed on discharge instructions, follow up and referral plans. Demonstrated understanding of instructions, Pt was receptive of discharge instructions/ teaching. CT Study completed. Property :Personal belongings accompany Pt. 00:06 Patient left the ED. cally Signatures: Gela Gonzalez, RN RN Nery Sky, Excel Specialist Unit ml3 Azam Mason DO DO cs11 Roberta Pena RN RN js15 Carolina Traore, [employer] TUTOR cln MTDD
--- NOTE | 2016-04-29 00:06 | EDDOCDS ---
Physician Documentation [facility] Name: Pretty Pierre Age: 85 yrs Sex: Female : 1930 Arrival Date: 04/28/2016 Time: 22:37 Bed 6 Private MD: Eliseo Serra Disposition: 04/28/16 23:34 Discharged to Home/Self Care. Impression: Contusion of unspecified part of head. - Condition is Stable. - Medication Reconciliation, Local Pharmacy Hours form. - Follow up: Eliseo Serra MD; When: Call to arrange an appointment; Reason: Recheck today's complaints. - Problem is new. - Symptoms have improved. Historical: - Allergies: PENICILLINS (Hives); SULFA (SULFONAMIDES); - Home Meds: 1. atenolol 50 mg Oral tab 1 tab once daily 2. digoxin 125 mcg Oral tab once daily 3. divalproex 250 mg oral TbEC 2 times per day 4. Klor-Con 10 10 mEq Oral TbER 2 tabs once daily 5. letrozole 2.5 mg oral tab 1 tab once daily 6. losartan 100 mg oral tab 1 tab once daily 7. simvastatin 20 mg Oral tab 1 tab HS 8. spironolactone 25 mg Oral tab 0.5 tab 9. torsemide 20 mg oral tab 1 tab bid 10. venlafaxine 75 mg oral cp24 1 cap once daily 11. warfarin 2.5 mg Oral tab 2.5mg every day but mon and fri 12. warfarin 5 mg Oral tab 1 tab once daily mon and fri - PMHx: afib; bilateral breast cancer; Hypercholesterolemia; Hypertension; mood swings; - PSHx: Knee Arthroplasty, Left; Knee Arthroplasty, Right; Lumpectomy- Left; Lumpectomy- Right; radiation; - Social history: Smoking status: Patient states was never smoker of tobacco. No barriers to communication noted, The patient speaks fluent Hebrew, Speaks appropriately for age. - Family history: Not pertinent. - : The pt / caregiver states he / she is on anticoagulants: coumadin. Home medication list is obtained from the patient, [employer] import data. - Exposure Risk Screening:: None identified. Vital Signs: 04/28 22:52 BP 124 / 77 RA Supine (auto/reg); Pulse 90 MON; Resp 22 S; Temp 97.8(TE); Pulse Ox 100% cln on R/A; Weight 68.04 kg / 150 lbs (R); Height 5 ft. 2 in. (157.48 cm) (R); Pain 4/10; 23:48 BP 153 / 67; Pulse 88; Resp 20; Temp 97(O); Pulse Ox 95% on R/A; Pain 0/10; apr 22:52 Body Mass Index 27.44 (68.04 kg, 157.48 cm) cln MDM: 22:53 CT Head Without Contrast Ordered. EDMS 22:53 CT Spine,Cervical W/o Contrast Ordered. EDMS 23:32 Financial registration complete. [facility] Signatures: Dispatcher [employer] EDMS Gela Gonzalez, RN Azam Carreon DO DO Lesly Leger Roberta OropezaRN RN js15 MTDAriadne
--- NOTE | 2016-05-01 01:06 | EDDOCDS ---
Physician Documentation [facility] Name: Pretty Pierre Age: 85 yrs Sex: Female : 1930 Arrival Date: 04/28/2016 Time: 22:37 Bed 6 Private MD: Eliseo Serra Disposition: 04/28/16 23:34 Discharged to Home/Self Care. Impression: Contusion of unspecified part of head. - Condition is Stable. - Medication Reconciliation, Local Pharmacy Hours form. - Follow up: Eliseo Serra MD; When: Call to arrange an appointment; Reason: Recheck today's complaints. - Problem is new. - Symptoms have improved. Historical: - Allergies: PENICILLINS (Hives); SULFA (SULFONAMIDES); - Home Meds: 1. atenolol 50 mg Oral tab 1 tab once daily 2. digoxin 125 mcg Oral tab once daily 3. divalproex 250 mg oral TbEC 2 times per day 4. Klor-Con 10 10 mEq Oral TbER 2 tabs once daily 5. letrozole 2.5 mg oral tab 1 tab once daily 6. losartan 100 mg oral tab 1 tab once daily 7. simvastatin 20 mg Oral tab 1 tab HS 8. spironolactone 25 mg Oral tab 0.5 tab 9. torsemide 20 mg oral tab 1 tab bid 10. venlafaxine 75 mg oral cp24 1 cap once daily 11. warfarin 2.5 mg Oral tab 2.5mg every day but mon and fri 12. warfarin 5 mg Oral tab 1 tab once daily mon and fri - PMHx: afib; bilateral breast cancer; Hypercholesterolemia; Hypertension; mood swings; - PSHx: Knee Arthroplasty, Left; Knee Arthroplasty, Right; Lumpectomy- Left; Lumpectomy- Right; radiation; - Social history: Smoking status: Patient states was never smoker of tobacco. No barriers to communication noted, The patient speaks fluent Occitan, Speaks appropriately for age. - Family history: Not pertinent. - : The pt / caregiver states he / she is on anticoagulants: coumadin. Home medication list is obtained from the patient, [employer] import data. - Exposure Risk Screening:: None identified. Vital Signs: 04/28 22:52 BP 124 / 77 RA Supine (auto/reg); Pulse 90 MON; Resp 22 S; Temp 97.8(TE); Pulse Ox 100% cln on R/A; Weight 68.04 kg / 150 lbs (R); Height 5 ft. 2 in. (157.48 cm) (R); Pain 4/10; 23:48 BP 153 / 67; Pulse 88; Resp 20; Temp 97(O); Pulse Ox 95% on R/A; Pain 0/10; apr 22:52 Body Mass Index 27.44 (68.04 kg, 157.48 cm) cln MDM: 22:53 CT Head Without Contrast Ordered. EDMS 22:53 CT Spine,Cervical W/o Contrast Ordered. EDMS 23:32 Financial registration complete. [facility] 04/29 01:18 [facility] Payment Agreement was scanned into [employer] and attached to record. [facility] 09:59 T-Sheet-- Draft Copy was scanned into [employer] and attached to record. 09:59 Radiology Report was scanned into [employer] and attached to record. Signatures: Dispatcher [employer] EDMS Gela Gonzalez, RN RN Jany Dunaway, Reg Reg Azam Gibson, DO DO cs11 Lesly Weber [facility] Roberta Pena,RN RN js15 The chart was reviewed and I authenticate all verbal orders and agree with the evaluation and treatment provided.Attachments: 01:18 [facility] Payment Agreement [facility] 09:59 T-Sheet-- Draft Copy gb Chart Complete MTDD
--- NOTE | 2016-05-01 01:06 | EDDOCDS ---
Physician Documentation [facility] Name: Pretty Pierre Age: 85 yrs Sex: Female : 1930 Arrival Date: 04/28/2016 Time: 22:37 Bed 6 Private MD: Eliseo Serra Disposition: 04/28/16 23:34 Discharged to Home/Self Care. Impression: Contusion of unspecified part of head. - Condition is Stable. - Medication Reconciliation, Local Pharmacy Hours form. - Follow up: Eliseo Serra MD; When: Call to arrange an appointment; Reason: Recheck today's complaints. - Problem is new. - Symptoms have improved. Historical: - Allergies: PENICILLINS (Hives); SULFA (SULFONAMIDES); - Home Meds: 1. atenolol 50 mg Oral tab 1 tab once daily 2. digoxin 125 mcg Oral tab once daily 3. divalproex 250 mg oral TbEC 2 times per day 4. Klor-Con 10 10 mEq Oral TbER 2 tabs once daily 5. letrozole 2.5 mg oral tab 1 tab once daily 6. losartan 100 mg oral tab 1 tab once daily 7. simvastatin 20 mg Oral tab 1 tab HS 8. spironolactone 25 mg Oral tab 0.5 tab 9. torsemide 20 mg oral tab 1 tab bid 10. venlafaxine 75 mg oral cp24 1 cap once daily 11. warfarin 2.5 mg Oral tab 2.5mg every day but mon and fri 12. warfarin 5 mg Oral tab 1 tab once daily mon and fri - PMHx: afib; bilateral breast cancer; Hypercholesterolemia; Hypertension; mood swings; - PSHx: Knee Arthroplasty, Left; Knee Arthroplasty, Right; Lumpectomy- Left; Lumpectomy- Right; radiation; - Social history: Smoking status: Patient states was never smoker of tobacco. No barriers to communication noted, The patient speaks fluent Serbian, Speaks appropriately for age. - Family history: Not pertinent. - : The pt / caregiver states he / she is on anticoagulants: coumadin. Home medication list is obtained from the patient, [employer] import data. - Exposure Risk Screening:: None identified. Vital Signs: 04/28 22:52 BP 124 / 77 RA Supine (auto/reg); Pulse 90 MON; Resp 22 S; Temp 97.8(TE); Pulse Ox 100% cln on R/A; Weight 68.04 kg / 150 lbs (R); Height 5 ft. 2 in. (157.48 cm) (R); Pain 4/10; 23:48 BP 153 / 67; Pulse 88; Resp 20; Temp 97(O); Pulse Ox 95% on R/A; Pain 0/10; apr 22:52 Body Mass Index 27.44 (68.04 kg, 157.48 cm) cln MDM: 22:53 CT Head Without Contrast Ordered. EDMS 22:53 CT Spine,Cervical W/o Contrast Ordered. EDMS 23:32 Financial registration complete. [facility] 04/29 01:18 [facility] Payment Agreement was scanned into [employer] and attached to record. [facility] 09:59 T-Sheet-- Draft Copy was scanned into [employer] and attached to record. 09:59 Radiology Report was scanned into [employer] and attached to record. Signatures: Dispatcher [employer] EDMS Gela Gonzalez, RN RN Jany Dunaway, Reg Reg Azam Gibson, DO DO cs11 Lesly Weber [facility] Roberta Pena,RN RN js15 The chart was reviewed and I authenticate all verbal orders and agree with the evaluation and treatment provided.Attachments: 01:18 [facility] Payment Agreement [facility] 09:59 T-Sheet-- Draft Copy gb Chart Complete MTDD
--- NOTE | 2016-05-01 01:07 | EDDOCDS ---
Nurse's Notes [facility] Name: Pretty Pierre Age: 85 yrs Sex: Female : 1930 Arrival Date: 04/28/2016 Time: 22:37 Bed 6 Private MD: Eliseo Serra Diagnosis: Contusion of unspecified part of head Presentation: 04/28 22:46 Presenting complaint: EMS states: Pt is taking coumadin; was walking at home and lost js15 balance and fell; states that she hit her head and just wants to check for bleeding; complains of mild right neck pain. Adult Sepsis Screening: The patient does not have new or worsening altered mentation. Patient's respiratory rate is less than 22. Suicide/Homicide risk assessment- the patient denies having any suicidal and/or homicidal ideations and does not present with any other emotional, behavioral or mental health complaints. Status: Patient is not a administrative services assistant or dependent. Transition of care: patient was not received from another setting of care. 22:46 Acuity: [place] Level 4 15 22:46 Method Of Arrival: Ambulance 15 22:56 Adult Sepsis Screening: Patient has a qSOFA score of 0- Negative Sepsis Screen. js15 Triage Assessment: 22:51 General: Appears in no apparent distress, Behavior is appropriate for age, cooperative. js15 Pain: Location: right lateral aspect of neck. The patient is triaged at the bedside. See Assessment in Nurses Notes section of ED record. Neurological: Level of Consciousness is awake, alert, obeys commands, Oriented to person, place, time. Respiratory: Airway is patent Respiratory effort is even, unlabored, Respiratory pattern is regular, symmetrical. Derm: Skin is intact, Skin is dry, Skin temperature is warm Bruising that is dark purple, on right hand. Musculoskeletal: Reports pain in right lateral aspect of neck. Historical: - Allergies: PENICILLINS (Hives); SULFA (SULFONAMIDES); - Home Meds: 1. atenolol 50 mg Oral tab 1 tab once daily 2. digoxin 125 mcg Oral tab once daily 3. divalproex 250 mg oral TbEC 2 times per day 4. Klor-Con 10 10 mEq Oral TbER 2 tabs once daily 5. letrozole 2.5 mg oral tab 1 tab once daily 6. losartan 100 mg oral tab 1 tab once daily 7. simvastatin 20 mg Oral tab 1 tab HS 8. spironolactone 25 mg Oral tab 0.5 tab 9. torsemide 20 mg oral tab 1 tab bid 10. venlafaxine 75 mg oral cp24 1 cap once daily 11. warfarin 2.5 mg Oral tab 2.5mg every day but mon and fri 12. warfarin 5 mg Oral tab 1 tab once daily mon and fri - PMHx: afib; bilateral breast cancer; Hypercholesterolemia; Hypertension; mood swings; - PSHx: Knee Arthroplasty, Left; Knee Arthroplasty, Right; Lumpectomy- Left; Lumpectomy- Right; radiation; - Social history: Smoking status: Patient states was never smoker of tobacco. No barriers to communication noted, The patient speaks fluent R[place]an, Speaks appropriately for age. - Family history: Not pertinent. - : The pt / caregiver states he / she is on anticoagulants: coumadin. Home medication list is obtained from the patient, [email or web address] import data. - Exposure Risk Screening:: None identified. Screenin:55 Screening information is obtained from the patient. Fall risk: At risk due to age, js15 prior history of falls, The following interventions are performed due to a positive Fall Risk Screen: Fall Risk is added to Special Handling on the patient Summary Screen. A Fall Risk Bracelet was applied to the patient. Side Rails are placed in the up position. A Call Cotton is given with instruction to call for help when getting out of bed. Assistance ADL's: requires no assistance with activities of daily living. Abuse/DV Screen: The patient / caregiver reports he/she is: not in a situation that causes fear, pain or injury. Nutritional screening: No deficits noted. Advance Directives: There is an active DNR order but there is no copy available at this time. Advance Directives: Currently, there is a health care proxy, Tank Tanner-SON. home support is adequate. Assessment: 22:56 General: see triage note. js15 04/29 00:03 General: Appears in no apparent distress, comfortable, Behavior is cooperative, cally pleasant. Neurological: No deficits noted. Level of Consciousness is awake, alert, obeys commands, Oriented to person, place, time, Speech is normal. Derm: Skin is pink, warm & dry. Vital Signs: 04/28 22:52 BP 124 / 77 RA Supine (auto/reg); Pulse 90 MON; Resp 22 S; Temp 97.8(TE); Pulse Ox 100% cln on R/A; Weight 68.04 kg (R); Height 5 ft. 2 in. (157.48 cm) (R); Pain 4/10; 23:48 BP 153 / 67; Pulse 88; Resp 20; Temp 97(O); Pulse Ox 95% on R/A; Pain 0/10; apr 22:52 Body Mass Index 27.44 (68.04 kg, 157.48 cm) cln Vitals: 22:51 Log In Time N/A - ambulance arrival. js15 ED Course: 22:42 Patient visited by Nery Munoz, Arc Cutter. ml3 22:42 Eliseo Serra MD is Private Physician. ml3 22:42 Azam Mason DO is Attending Physician. cs11 22:42 Patient visited by Azam Mason DO. cs11 22:42 Patient moved to Waiting ml3 22:42 Patient moved to 6 ml3 22:45 Roberta Pena,RN is Primary Nurse. js15 22:49 Triage Initiated js15 22:54 Patient visited by Carolina Traore PCA. cln 22:54 Pt greeted and oriented to ED. Patient advised of names of staff involved in care, cln location of call cotton, wait times and NPO status. Patient has correct armband on for positive identification. Placed in gown. Bed in low position. Call light in reach. Side rails up X 1. 22:54 Maintain field IV. Dressing intact. Site clean & dry. Gauge & site: 20 G LAC. js15 23:34 Eliseo Serra MD is Referral Physician. cs11 23:43 The patient / caregiver is instructed regarding the plan of care and ED course. js15 23:43 No procedures done that require assistance. js15 23:49 Discontinued lock bleeding controlled, pressure dressing applied, No redness/swelling apr at site. 04/29 00:19 CT Head Without Contrast Returned. EDMS 00:19 CT Spine,Cervical W/o Contrast Returned. EDMS 01:18 [facility] Payment Agreement was scanned into [employer] and attached to record. sl 09:59 T-Sheet-- Draft Copy was scanned into [employer] and attached to record. gb 09:59 Radiology Report was scanned into [employer] and attached to record. gb Order Results: Radiology Order: CT Head Without Contrast Test: CT Head Without Contrast REASON FOR EXAMINATION: Trauma; ; CT of the head; Clinical history: trauma.; Protocol: Multiple axial CT images obtained with 5 mm slice thickness were obtained through the head; without administration of contrast.; Findings: The ventricles and sulci are symmetric but prominent in size bilaterally. There are periven; tricular areas of low attenuation throughout the deep white matter. There is no evidence of acute hem; orrhage or infarct. There is no midline shift, mass effect, or extra-axial fluid collection. The osse; ous structures are unremarkable. The visualized paranasal sinuses and mastoid air cells are clear.; Impression: No acute hemorrhage or infarct. 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 Coronal and sagittal 3-D reconstructed images were also obtained.; Comparison: None.; Findings:; The cervical vertebral bodies are in satisfactory positioning and alignment. No fractures or dislocat; ions are demonstrated. The odontoid process is intact. Intervertebral disc spaces are narrowed throug; hout, but severely narrowed at C5/C6 and C6/C7, where there are disc osteophyte complexes appreciated; . These disc osteophyte cause moderate narrowing of the neural foramen bilaterally. Severe bilateral; facet arthropathy is noted. There is no evidence of facet subluxation. The other neural foramen appea; r grossly patent. The cervical cranial junction is intact. The cervical spinal canal demonstrates nor; mal caliber and contour without evidence of spinal stenosis. The surrounding soft tissues are within; normal limits.; Impression: No acute fracture or traumatic injury. Diffuse multilevel degenerative disc disease, most; severe at C5/C6 and C6/C7, where disc osteophyte complexes causing moderately severe bilateral neura; l foraminal narrowing. Diffuse severe facet arthropathy is noted without evidence of subluxation.; ; Outcome: 04/28 23:34 Discharge ordered by Provider. cs11 04/29 00:04 Discharge Assessment: patient administered narcotics - no. The following High Risk cally Discharge criteria are identified: None. Discharged to home via wheelchair. Condition: stable. Discharge instructions given to patient, Instructed on discharge instructions, follow up and referral plans. Demonstrated understanding of instructions, Pt was receptive of discharge instructions/ teaching. CT Study completed. Property :Personal belongings accompany Pt. 00:06 Patient left the ED. apr Signatures: Dispatcher [employer] EDMS Gela Gonzalez, RN RN Jany Dunaway, Eric Reg Nery Bergeron, Arc Cutter Unit ml3 Azam Mason, DO cs11 Lesly Weber Julia, RN RN js15 Carolina Traore, [employer]PLICATIONS TEACHER cln Chart Complete MTDD
== END 2016-04-29 00:06 | disposition home or self-care (01) ==
LOC: M ED 22:37
DX: S00.93XA Contusion of unspecified part of head, initial encounter (principal); W01.0XXA Fall on same level from slipping, tripping and stumbling without subsequent striking against object, initial encounter; Y92.89 Other specified places as the place of occurrence of the external cause; Y93.89 Activity, other specified; Y99.8 Other external cause status; I10 Essential (primary) hypertension; I50.9 Heart failure, unspecified; E78.5 Hyperlipidemia, unspecified; I48.91 Unspecified atrial fibrillation; Z85.3 Personal history of malignant neoplasm of breast; Z79.899 Other long term (current) drug therapy; Z79.01 Long term (current) use of anticoagulants; Z88.0 Allergy status to penicillin; Z88.2 Allergy status to sulfonamides

== ENCOUNTER → 2016-05-16 | Outpatient (REF) | payer MEDICARE | LOC: M LAB REF 16:23 | PROVIDERS: ATTEND Surgery | DX: I87.311 Chronic venous hypertension (idiopathic) with ulcer of right lower extremity (principal) ==

== ENCOUNTER → 2016-06-07 | Outpatient (POV) | payer MEDICARE | LOC: M IRPOV 10:49 | PROVIDERS: ATTEND Surgery | DX: I83.218 Varicose veins of right lower extremity with both ulcer of other part of lower extremity and inflammation (principal); I83.228 Varicose veins of left lower extremity with both ulcer of other part of lower extremity and inflammation; I83.813 Varicose veins of bilateral lower extremities with pain; I83.893 Varicose veins of bilateral lower extremities with other complications ==

== ENCOUNTER 2016-06-25 13:14 | Emergency (ER) | payer MEDICARE ==
[~2016-06-25] VITALS: Ht 157.5 cm; Wt 63.5 kg
--- NOTE | 2016-06-25 14:31 | REP ---
Left foot series: Four views. History: Trauma. Findings: Four views of the left foot demonstrate marked diffuse osteopenia. Clothing artifact is seen. There is dorsal soft tissue swelling of the forefoot. Plantar calcaneal spurring is noted and some flattening of the tarsal arch is seen. No fracture, soft tissue gas or opaque foreign body is seen. Impression: Diffuse osteoporosis. Plantar heel spur. Forefoot swelling. Signed by Jorge Poe MD 06/25/2016 05:11 P
--- NOTE | 2016-06-25 14:37 | REP ---
Left ankle series: Four views. History: Trauma. Findings: Four views of the left ankle are obtained through overlying cloth wrapping the ankle. Ankle mortise is intact. No fracture is seen. Plantar heel spurring is noted. There is diffuse osteoporosis. Impression: No fracture seen. Signed by Jorge Poe MD 06/25/2016 05:11 P
[2016-06-25 16:31] VITALS: BP 157/71
== END 2016-06-25 16:34 | disposition home or self-care (01) ==
LOC: EDBD 13:14 → M ED 14:06
DX: S90.32XA Contusion of left foot, initial encounter (principal); W01.198A Fall on same level from slipping, tripping and stumbling with subsequent striking against other object, initial encounter; Y92.099 Unspecified place in other non-institutional residence as the place of occurrence of the external cause; Y93.01 Activity, walking, marching and hiking; Y99.9 Unspecified external cause status

== ENCOUNTER → 2016-08-29 | Outpatient (CLI) | payer MEDICARE ==
[~2016-08-29] MED LIST changes: +LIDOCAINE 2% MDV 20 ML VIAL As Ordered ONE; +LIDOCAINE 4% CREAM 5GM (LMX4) As Ordered ONE; +SODIUM TETRADECYL SULFATE(3%)30MG/ML 2ML VIAL (SOTRADECOL) As Ordered ONE
--- NOTE | 2016-08-29 18:15 | REPKIM ---
INDICATION: Patient with bilateral lower extremity varicose veins, active unhealing bilateral leg ulcers and complications present for left lower extremity EVLT of the incompetent superficial vein possible sclerotherapy of significant varicosities. Ultrasound reflux evaluation of the left leg showed significant reflux throughout the greater saphenous vein with the time of reflux 1.8 to 3.8 seconds. This also showed collateral varicosities below the knee level. The LSV also showed significant reflux, 4 mm in size. Patient also was found to have significant reflux involving the deep system bilaterally. The right leg reflux study showed significant reflux involving the LSV with reflux time of 5.8 seconds. The LSV measures 6 mm on the right. No evidence of DVT. Patient has venous leg ulcers which failed conservative treatment; utilization of compressive stockings, leg elevation wound debridement. PROCEDURE: 1. Endovenous laser ablation therapy of the incompetent GSV on the left 2. Sclerotherapy of significant collateral varicosities at/just below the knee level on the left. INTERVENTIONALIST: Mariano Harris MD EBL: 3 mL MEDICATIONS: Local Lidocaine and Sodium Tetradecyl Sulfate 3% diluted to 1.5% DEVICE USED: 45-CM VenaCure EVLT Stampsy Lot#[id number] TECHNIQUE AND FINDINGS: Informed consent was obtained prior to the procedure. The patient was placed supine on the table. A time out was performed that verified correct procedure, site, side and materials available. Ultrasound examination was performed and focused on the saphenofemoral junction of the left leg. This confirmed significant reflux involving the greater saphenous vein as previously described. This also confirmed significant collateral varicosities below the knee level. The LSV was found to be very small associated with other small varicosities in the calf in todays exam. Significant subcutaneous tissue edema noted in the calf to the knee level. The patient was placed in the supine position. The left lower extremity was prepped and draped in the usual sterile fashion. After local anesthesia with 1mL of lidocaine 1% at the skin, the incompetent greater saphenous vein above the knee level was accessed with a 21 gauge needle and a 0.018" wire followed by a 4 Bengali sheath of the EVLT kit. The sheath was advanced over the wire to the saphenofemoral junction level and the laser fiber was advanced coaxially and its tip was positioned at least 5-6 cm distal from the saphenofemoral junction. Tumescent anesthesia was given along this vein by using real-time ultrasonographic guidance and a 22 gauge spinal needle and a mixture of diluted lidocaine (12.5mL @ 2% in 237.5mL of normal saline). Endovenous laser ablation was applied along the greater saphenous vein using 6 Chan in continuous mode for a total duration of 94 seconds. A total of 565 Joules was delivered. Significant collateral varicosity just below the knee level treated with approximately 2-3 mL of sclerotherapy foam (1mL sodium tetradecyl sulfate diluted at 1.5 %) mixed with air at a ratio of 1:4 injected. Compression was maintained. SteriStrips was applied on the skin, followed by 20-30 mm Hg thigh high compression stockings. The patient was then allowed to stand and instructed to walk for 10-15 minutes. She was then discharged back home in good and stable condition with no immediate complication. This procedure was performed with ultrasound guidance. Dr. Harris was present. IMPRESSION: 1. Left lower extremity varicose veins with unhealing active ulcers and other complications. 2. Successful treatment of symptomatic incompetent GSV in the left lower extremity by endovenous laser ablation. 3. Significant collateral varicosities at the knee level also treated with sclerotherapy as discussed above. I was not able to treat LSV at this time due to very small size. PLAN: Pt was given post-procedure instructions, including contact information for a follow-up duplex ultrasound of the left lower extremity to rule out DVT and post EVLT/sclerotherapy evaluation in next several days. Patient will need bilateral thigh-high compression stockings for long-term due to significant reflux involving the deep system. Plan to treat the right leg incompetent LSV in next 2-3 weeks. I will also re-evaluate the left leg incompetent LSV at that time. cc: Kemal Curran MD [facility] CENTERAriadne
== END | disposition home or self-care (01) ==
LOC: M IRPRO 08:28
DX: I83.228 Varicose veins of left lower extremity with both ulcer of other part of lower extremity and inflammation (principal); I83.218 Varicose veins of right lower extremity with both ulcer of other part of lower extremity and inflammation; I83.893 Varicose veins of bilateral lower extremities with other complications
CPT/HCPCS: 15271; 36470; 36478; C1888; Q4131

== ENCOUNTER → 2016-08-31 | Outpatient (CLI) | payer MEDICARE ==
[~2016-08-31] MED LIST changes: -LIDOCAINE 2% MDV 20 ML VIAL As Ordered ONE; -LIDOCAINE 4% CREAM 5GM (LMX4) As Ordered ONE; -SODIUM TETRADECYL SULFATE(3%)30MG/ML 2ML VIAL (SOTRADECOL) As Ordered ONE
--- NOTE | 2016-08-31 11:54 | REP ---
Clinical: Status post EVLT with lower extremity pain . Technique: Duran scale and color Doppler evaluation using linear high frequency transducer. Findings: Ultrasound examination of the left lower extremity deep venous structures from the common femoral vein to the popliteal vein demonstrates normal compressibility flow and wave patterns in response to respiration and augmentation. There is no evidence for deep venous thrombosis. Thrombus extends through the greater saphenous vein consistent with recent EVLT. Impression: No evidence for deep venous thrombosis. Signed by Don Rabago MD 08/31/2016 11:45 A
== END ==
LOC: M RAD 11:00
DX: I83.92 Asymptomatic varicose veins of left lower extremity (principal)

== ENCOUNTER → 2016-09-14 | Outpatient (REF) | payer MEDICARE ==
[2016-09-14 14:35] LABS: INR 1.73
== END ==
LOC: M LAB REF 12:37
PROVIDERS: ATTEND Nurse Practitioner Adult Health
DX: Z51.81 Encounter for therapeutic drug level monitoring (principal); Z79.01 Long term (current) use of anticoagulants; I48.2 Chronic atrial fibrillation

== ENCOUNTER → 2016-09-22 | Outpatient (REF) | payer MEDICARE ==
[2016-09-22 15:24] LABS: INR 1.65
== END ==
LOC: M LAB REF 14:57
PROVIDERS: ATTEND Nurse Practitioner Adult Health
DX: Z51.81 Encounter for therapeutic drug level monitoring (principal); Z79.01 Long term (current) use of anticoagulants; I48.2 Chronic atrial fibrillation

== ENCOUNTER → 2016-09-27 | Outpatient (REF) | payer MEDICARE ==
[2016-09-27 15:00] LABS: INR 2.12
== END ==
LOC: M LAB REF 14:29
PROVIDERS: ATTEND Nurse Practitioner Adult Health
DX: Z51.81 Encounter for therapeutic drug level monitoring (principal); Z79.01 Long term (current) use of anticoagulants; I48.2 Chronic atrial fibrillation

== ENCOUNTER → 2016-10-03 | Outpatient (CLI) | payer MEDICARE ==
[~2016-10-03] MED LIST changes: +CALC600T31 PO; -LETR2.5T PO; +LETR2.5T2 PO; +LIDOCAINE 2% MDV 20 ML VIAL As Ordered ONE; +LIDOCAINE 4% CREAM 5GM (LMX4) As Ordered ONE; +POTA10CA PO; +SODIUM TETRADECYL SULFATE(3%)30MG/ML 2ML VIAL (SOTRADECOL) As Ordered ONE; -VENL75CA PO; +VENL75CA2 PO
--- NOTE | 2016-10-03 19:21 | REPKIM ---
RIGHT LOWER EXTREMITY DUPLEX VENOUS ULTRASOUND: HISTORY: Patient with venous stasis ulcer was found to have significant reflux involving the LSV on the right. Patient presents for EVLT/possible sclerotherapy of the right lower extremity incompetent superficial veins. Comparison right lower extremity duplex venous ultrasound from April 24, 2016. FINDINGS: Duran scale and color Doppler evaluation of the right LSV using linear high frequency transducer was performed. This showed the LSV is partially thrombosed. The LSV measures approximately 2-3 mm in AP dimension. Previously the LSV measured 6 mm in AP with significant reflux more than 5.8 seconds. IMPRESSION: Partially thrombosed LSV with improving venous stasis ulcer with conservative treatment. No need for EVLT at this time. Patient has known significant reflux involving the deep system bilaterally. Continue conservative treatment of compression stockings and leg elevation. cc: Kemal Curran MD [facility]PITALAriadne
== END | disposition home or self-care (01) ==
LOC: M IRPRO 08:48
DX: I83.019 Varicose veins of right lower extremity with ulcer of unspecified site (principal); I83.029 Varicose veins of left lower extremity with ulcer of unspecified site; L97.811 Non-pressure chronic ulcer of other part of right lower leg limited to breakdown of skin; L97.829 Non-pressure chronic ulcer of other part of left lower leg with unspecified severity
CPT/HCPCS: 93976; G0463

== ENCOUNTER → 2016-10-04 | Outpatient (REF) | payer MEDICARE ==
[~2016-10-04] MED LIST changes: -LIDOCAINE 2% MDV 20 ML VIAL As Ordered ONE; -LIDOCAINE 4% CREAM 5GM (LMX4) As Ordered ONE; -SODIUM TETRADECYL SULFATE(3%)30MG/ML 2ML VIAL (SOTRADECOL) As Ordered ONE
[2016-10-04 12:32] LABS: INR 3.55
== END ==
LOC: M SHH 12:13
PROVIDERS: ATTEND Nurse Practitioner Adult Health
DX: Z51.81 Encounter for therapeutic drug level monitoring (principal); Z79.01 Long term (current) use of anticoagulants; I48.2 Chronic atrial fibrillation

== ENCOUNTER → 2016-10-07 | Outpatient (REF) | payer MEDICARE ==
--- NOTE | 2016-10-07 15:38 | REP ---
Clinical: Lower back pain with contusion. Technique: AP, angled, and lateral views of the sacrum and coccyx. Findings: Age-related osteopenia and degenerative changes are appreciated. Lateral view demonstrates subluxation to the coccyx which is of indeterminate age and should be correlated clinically. Impression: Osteopenia and degenerative changes. Subluxation at the coccyx of indeterminate age. Signed by Don Rabago MD 10/07/2016 03:30 P
== END ==
LOC: M WUC 13:38
PROVIDERS: ATTEND Physician Assistant
DX: S33.2XXA Dislocation of sacroiliac and sacrococcygeal joint, initial encounter (principal); M81.0 Age-related osteoporosis without current pathological fracture; X58.XXXA Exposure to other specified factors, initial encounter; Y92.9 Unspecified place or not applicable; Y93.9 Activity, unspecified; Y99.9 Unspecified external cause status

== ENCOUNTER → 2016-10-11 | Outpatient (REF) | payer MEDICARE ==
[2016-10-11 13:18] LABS: INR 2.85
== END ==
LOC: M SHH 12:44
PROVIDERS: ATTEND Nurse Practitioner Adult Health
DX: Z51.81 Encounter for therapeutic drug level monitoring (principal); Z79.01 Long term (current) use of anticoagulants; I48.2 Chronic atrial fibrillation

== ENCOUNTER → 2016-10-25 | Outpatient (REF) | payer MEDICARE ==
[2016-10-25 15:38] LABS: INR 2.72
== END ==
LOC: M SHH 14:54
PROVIDERS: ATTEND Nurse Practitioner Adult Health
DX: Z51.81 Encounter for therapeutic drug level monitoring (principal); Z79.01 Long term (current) use of anticoagulants; I48.2 Chronic atrial fibrillation

== ENCOUNTER → 2016-11-01 | Outpatient (REF) | payer MEDICARE ==
[2016-11-01 13:08] LABS: INR 1.86
== END ==
LOC: M SHH 12:17
PROVIDERS: ATTEND Nurse Practitioner Adult Health
DX: Z51.81 Encounter for therapeutic drug level monitoring (principal); Z79.01 Long term (current) use of anticoagulants; I48.2 Chronic atrial fibrillation

== ENCOUNTER → 2016-11-08 | Outpatient (REF) | payer MEDICARE ==
[2016-11-08 10:36] LABS: INR 1.48
== END ==
LOC: M LAB REF 10:05
PROVIDERS: ATTEND Nurse Practitioner Adult Health
DX: Z51.81 Encounter for therapeutic drug level monitoring (principal); I48.2 Chronic atrial fibrillation

== ENCOUNTER → 2016-11-10 | Outpatient (REF) | payer MEDICARE ==
[2016-11-10 18:26] LABS: DIGOXIN LEVEL 0.8 NG/ML (0.5-2.0)
== END ==
LOC: M LAB REF 16:07
PROVIDERS: ATTEND Nurse Practitioner Adult Health
DX: I48.2 Chronic atrial fibrillation (principal); Z51.81 Encounter for therapeutic drug level monitoring

== ENCOUNTER → 2016-11-15 | Outpatient (REF) | payer MEDICARE ==
[2016-11-15 16:31] LABS: INR 2.49
== END ==
LOC: M SHH 15:57
PROVIDERS: ATTEND Nurse Practitioner Adult Health
DX: Z51.81 Encounter for therapeutic drug level monitoring (principal); I48.2 Chronic atrial fibrillation

== ENCOUNTER → 2016-11-22 | Outpatient (REF) | payer MEDICARE ==
[2016-11-22 12:04] LABS: INR 2.23
== END ==
LOC: M SHH 11:50
PROVIDERS: ATTEND Nurse Practitioner Adult Health
DX: Z51.81 Encounter for therapeutic drug level monitoring (principal); Z79.01 Long term (current) use of anticoagulants; I48.2 Chronic atrial fibrillation

== ENCOUNTER → 2016-11-29 | Outpatient (REF) | payer MEDICARE ==
[2016-11-29 11:12] LABS: INR 2.82
== END ==
LOC: M LAB REF 09:00
PROVIDERS: ATTEND Nurse Practitioner Adult Health
DX: Z51.81 Encounter for therapeutic drug level monitoring (principal); Z79.01 Long term (current) use of anticoagulants; I48.2 Chronic atrial fibrillation

== ENCOUNTER → 2016-12-06 | Outpatient (REF) | payer MEDICARE ==
[2016-12-06 16:12] LABS: INR 1.19
== END ==
LOC: M LAB REF 12:45
PROVIDERS: ATTEND Nurse Practitioner Adult Health
DX: I48.2 Chronic atrial fibrillation (principal)

== ENCOUNTER → 2016-12-06 | Outpatient (CLI) | payer MEDICARE ==
--- NOTE | 2016-12-06 13:54 | RADONC ---
RADIATION ONCOLOGY FOLLOWUP NOTE DATE: 12/06/2016 CHART NUMBER: [id number] DIAGNOSIS #1: Left breast cancer. STAGE: I, T1N0M0. DIAGNOSIS #2: Right breast cancer. STAGE: IA, [id number]. ECOG PERFORMANCE STATUS: 1 FOLLOWUP NOTE: Ms. 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 The patient presents today reporting that she is doing quite well with no complaints at this time related to her radiation therapy or disease. She reports that she is continuing to wrap her legs and has edema in them. She is being followed by the wound clinic and Dr. Curran for this issue. REVIEW OF SYSTEMS: The patient's review of systems is positive for her leg issues as well as physical limitations secondary to old age but is otherwise noncontributory. She denies nausea, vomiting, fevers, chills, night sweats, diplopia, headaches, anxiety or depression, anorexia, weight loss, visual disturbances, chest pain, urinary or bowel difficulties, bone pain, or neurological problems. PHYSICAL EXAMINATION: The patient is an elderly, frail, white female in no acute distress. HEENT: Exam is normocephalic, atraumatic. Extraocular movements are intact. There is no palpable cervical, supraclavicular, infraclavicular, axillary, or inguinal lymphadenopathy present. Her lungs are clear to auscultation and percussion. Her heart has regular rate and rhythm. Breast examination reveals no masses or discharge bilaterally. Skeletal examination reveals no tenderness to pressure and percussion of the bony skeleton. Her legs are wrapped at this point. The remainder of her physical exam is noncontributory. ASSESSMENT: The patient is clinically ANDREA at this time and will be seen by us again in 1 year for further followup. She will also continue to be followed by her other physicians as well. cc: Rachel Agee MD, FACJonah Serra Jr, MD James Stillerman, MD
== END ==
LOC: M ONCR 10:29
PROVIDERS: ATTEND Radiology Radiation Oncology
DX: C50.412 Malignant neoplasm of upper-outer quadrant of left female breast (principal); C50.211 Malignant neoplasm of upper-inner quadrant of right female breast; I48.2 Chronic atrial fibrillation
CPT/HCPCS: 85610; G0463

== ENCOUNTER → 2016-12-07 | Outpatient (REF) | payer MEDICARE | LOC: M LAB REF 12:53 | PROVIDERS: ATTEND Nurse Practitioner Adult Health | DX: Z51.81 Encounter for therapeutic drug level monitoring (principal); Z79.899 Other long term (current) drug therapy ==

== ENCOUNTER 2016-12-18 12:10 | Inpatient (IN) | payer MEDICARE ==
[~2016-12-18] VITALS: Ht 157.5 cm; Wt 57.7 kg
[~2016-12-18 12:10] MED LIST changes: -CALC600T31 PO; -POTA10CA PO
[2016-12-18] MEDS ORDERED: FUROSEMIDE 100 MG/10 ML VIAL (J1940) IV ONE (12:45)
--- NOTE | 2016-12-18 13:26 | REP ---
Clinical: Chest pain and extremity swelling. Technique: PA and lateral. Comparison: 04/20/2016. Findings: Stable mild cardiomegaly is appreciated. Lung blank demonstrate diffuse chronic interstitial changes without acute consolidation, effusion, or pneumothorax. No obvious evidence to suggest pulmonary venous congestion or interstitial edema. Old right shoulder fracture and evidence for left axillary node dissection. Impression: Chronic stable changes. No acute cardiopulmonary process or evidence for pulmonary vascular congestion. Signed by Don Rabago MD 12/18/2016 01:17 P
--- NOTE | 2016-12-18 13:57 | REP ---
Duplex extremity venous ultrasound: Bilateral lower extremities. History: Swelling. Findings: The deep veins are anechoic and fully compressible from the groin to the popliteal fossa in the left and right lower extremity. Color flow imaging is homogeneous. Spectral Doppler interrogation demonstrates intact respiratory variation in flow and normal manual augmentation of flow. There is no evidence of deep vein thrombosis. There is a normal appearing right inguinal lymph node 1.4 cm in diameter. Impression: Negative bilateral lower extremity duplex venous ultrasound. No evidence of deep vein thrombosis. Signed by Jorge Poe MD 12/18/2016 01:48 P
[2016-12-18 14:21] LABS: MEAN CORPUSCULAR HEMOGLOBIN 29.4 pg (27.0-33.0); MEAN CORPUSCULAR HGB CONC 32.2 g/dl (32.0-36.5); MEAN CORPUSCULAR VOLUME 91.5 fl (80.0-96.0); WHITE BLOOD COUNT 4.2 K/mm3 (4.0-10.0)
[2016-12-18 14:33] LABS: INR 2.49
[2016-12-18 14:52] LABS: ALBUMIN/GLOBULIN RATIO 0.81 (1.00-1.93); BILIRUBIN,DIRECT 0.1 MG/DL (0.0-0.2); BILIRUBIN,TOTAL 0.4 MG/DL (0.2-1.0); CALCIUM LEVEL 8.9 MG/DL (8.8-10.2); CREATININE FOR GFR 0.96 MG/DL (0.55-1.02); GLOMERULAR FILTRATION RATE 58.4 (>32); POTASSIUM SERUM 3.9 MEQ/L (3.5-5.1); TOTAL PROTEIN 6.7 GM/DL (6.4-8.2)
[2016-12-18 15:06] LABS: DIGOXIN LEVEL 0.9 NG/ML (0.5-2.0)
[2016-12-18] MEDS ORDERED: TORS20TA2 PO ×2 (16:13→16:17)
[2016-12-18] MEDS ORDERED: WARF-18 PO (16:17)
[2016-12-18] MEDS ORDERED: CALC600T31 PO (16:17)
[2016-12-18] MEDS ORDERED: POTA10CA PO (16:17)
[2016-12-18] MEDS ORDERED: DIVA250T PO ×2 (16:17)
[2016-12-18] MEDS ORDERED: ONDANSETRON 4MG/2ML VIAL (J2405) IV PRN (16:30)
[2016-12-18] MEDS: ACETAMINOPHEN TAB 650MG DOSE (2X325MG) PO PRN ×2 (16:34→23:14)
--- NOTE | 2016-12-18 17:00 | HPEPDOC ---
General Date of Admission Dec 18, 2016 at 16:17 Attending Physician: MACEY DORMAN MD Chief Complaint The patient is a 86-year-old female admitted with a reason for visit of Dependent Edema. History of Present Illness 86-year-old female with past medical history of hypertension, dyslipidemia chronic kidney disease stage III, atrial fibrillation on Coumadin, breast cancer , and chronic dependent edema of the lower extremities with chronic venous static changes presents to the ER with a chief complaint of increased swelling in the lower extremity over the last 2 weeks. The patient does state that she has been drinking more fluids towards the end of the summer, as there were a few days when it was very hot. In addition, the patient does state that she has also had salty sub sandwiches including corn beef and sauerkraut. She reports that the swelling in her legs got the worst after eating the aforementioned sandwiches. She denies any complaints of fevers, chills, chest pain, shortness of breath, palpitations, abdominal pain, or any nausea/vomiting/diarrhea. In the ER, the patient was noted to have 3+ pitting edema in the lower extremities. She did have difficulty ambulating with the edema in her legs. Given that the patient lives by herself, and is unable to ambulate in her current condition, we will admit the patient for IV Lasix administration for dependent lower extremity edema. Dr. Curran of wound care, who follows with the patient as an outpatient was called in the ER, and recommended optilock leg dressing placement and unna boots. Home Medications Scheduled (Restasis) 0.05 % Emu, 1 DROP OU BID, (Reported) Atenolol (Atenolol) 50 Mg Tab, 50 MG PO QHS, (Reported) Calcium (Calcium) 600 Mg Tab, 600 MG PO QHS, (Reported) Cholecalciferol (Vitamin D) 1,000 Unit Tab, 1,000 UNIT PO DAILY, (Reported) NOONTIME Digoxin (Digoxin) 0.125 Mg Tab, 0.125 MG PO QPM, (Reported) DINNERTIME Divalproex Sodium (Divalproex Sodium Dr) 250 Mg Tab, 500 MG PO QAM, (Reported) Divalproex Sodium (Divalproex Sodium Dr) 250 Mg Tab, 250 MG PO QHS, (Reported) Letrozole (Letrozole) 2.5 Mg Tab, 2.5 MG PO QPM, (Reported) DINNERTIME Losartan Potassium (Losartan Potassium) 100 Mg Tab, 100 MG PO QHS, (Reported) Potassium Chloride (Klor-Con M10) 10 Meq Tabcr, 10 MEQ PO DAILY, (Reported) Simvastatin (Simvastatin) 20 Mg Tab, 20 MG PO QHS, (Reported) Torsemide (Torsemide) 20 Mg Tab, 40 MG PO QAM, (Reported) Torsemide (Torsemide) 20 Mg Tab, 20 MG PO DAILY, (Reported) TAKES AT NOONTIME Venlafaxine HCl (Venlafaxine HCl ER) 75 Mg Cap, 75 MG PO DAILY, (Reported) Warfarin Sod (Warfarin Sodium) 2.5 Mg Tab, 2.5 MG PO Q2D, (Reported) ALTERNATES WITH 5MG EVERY OTHER DAY Warfarin Sod (Warfarin Sodium) 2.5 Mg Tab, 5 MG PO Q2D, (Reported) ALTERNATES WITH 2.5MG EVERY OTHER DAY Allergies Coded Allergies: Penicillins (Verified Allergy, Intermediate, HIVES, 07/10/12) HIVES Sulfa Drugs (Verified Allergy, Intermediate, HIVES, 04/24/16) Past Medical History Medical History As noted in HPI. Surgical History BILATERAL TKA BILATERAL CATARAT REMOVAL TONSILLECTOMY ORIF OF LEFT WRIST Obtained from outpatient charting Family History Significant Family History: No pertinent family hx Social History * Smoker: Denies Alcohol: Denies Drugs: denies Lives at home by herself. Does have help with laundry, and medical assistants will come check on her a few days week. Ambulates with a rolling walker at baseline. Has Meals on Wheels Review of Symptoms Other systems 10 point review of systems negative unless otherwise specified in HPI. Physical Examination General Exam: Positive: Alert, Cooperative, No Acute Distress ENT Exam: Positive: Atraumatic, Mucous membr. moist/pink Neck Exam: Negative: JVD Chest Exam: Positive: Clear to auscultation, Normal air movement Heart Exam: Positive: Rate Normal, Normal S1, Normal S2 Abdomen Exam: Positive: Soft, Negative: Tenderness Extremity Exam: Positive: Tenderness, Swelling (3-plus pitting edema noted in the lower extremities bilaterally. Changes consistent with chronic venous stasis also noted. No purulent discharge noted.) Psych Exam: Positive: Oriented x 3 Vital Signs Vital Signs Date Time Temp Pulse Resp B/P (MAP) Pulse Ox O2 Delivery O2 Flow Rate FiO2 12/18/16 15:40 91 18 165/74 (104) 100 Room Air 12/18/16 12:12 96.9 Laboratory Data Labs 24H Laboratory Tests 2 12/18/16 14:02: Prothrombin Time 27.9H, Prothromb Time International Ratio 2.49, Anion Gap 6L, Glomerular Filtration Rate 58.4, Calcium Level 8.9, Aspartate Amino Transf (AST/ SGOT) 22, Alanine Aminotransferase (ALT/SGPT) 17, Alkaline Phosphatase 80, Total Bilirubin 0.4, Direct Bilirubin 0.1, Total Creatine Kinase 65, Creatine Kinase MB 2.7, Creatine Kinase MB Relative Index 4.15H, Troponin I 0.02, Total Protein 6.7, Albumin 3.0L, Albumin/Globulin Ratio 0.81L, Digoxin Level 0.9 CBC/BMP Laboratory Tests 12/18/16 14:02 Red Blood Count 3.86 L, Mean Corpuscular Volume 91.5, Mean Corpuscular Hemoglobin 29.4, Mean Corpuscular Hemoglobin Concent 32.2, Red Cell Distribution Width 15.0 H Plan / VTE VTE Prophylaxis Ordered?: Yes Plan Plan Increasing Acute on Chronic Lower Extremity Dependent Edema 2/2 Dietary Indiscretion Ultrasound of the lower extremities with no acute DVT noted We will change the patient's diuretic therapy to IV Fluid restriction I's and O's We will order a 2-D echocardiogram to assess the patient's cardiac function, as it does not appear that the patient has had one. We will continue to monitor the patient's volume status, and titrate diuretic therapy as tolerated. Physical therapy consulted for functional optimization Chronic Venous Stasis of the Lower Extremities 2/[address] Curran contacted in the ER regarding the patient's chronic venous static changes of the lower extremities--he has recommended optilock dressing changes and unna boots which we have ordered here. Atrial fibrillation on Coumadin Rate controlled-continue atenolol, digoxin-Will order digoxin level for the a.m. INR level is therapeutic Will continue Coumadin as ordered Hypertension, stable Current regimen as ordered Chronic kidney disease stage III Serum crit appears to be at baseline Depression, stable Continue Effexor Dyslipidemia Continue statin History of breast cancer Has followed with Dr. Reed as an outpatient DVT prophylaxis Already on Coumadin The patient will be admitted under the service of Dr. Dorman, who will begin to follow the patient on 12/19/16 at 7 AM. KHANG DUONG MD Dec 18, 2016 17:00
--- NOTE | 2016-12-18 19:37 | ECGEPIP ---
Stationary ECG Study [facility] - ED Test Date: 2016-12-18 Pat Name: ANGELINE ECHOLS Department: Room: [place] [address] Gender: F Hospital Unit Clerk: anahy : 1930 Requested By: ELDER CRANE Order Number: [id number] Reading MD: Ramirez Ricketts Measurements Intervals Dewart Rate: 82 P: CO: 0 QRS: 1 QRSD: 96 T: -8 QT: 362 QTc: 423 Interpretive Statements ATRIAL FIBRILLATION MINIMAL VOLTAGE CRITERIA FOR LVH, CONSIDER NORMAL VARIANT NONSPECIFIC ST & T-WAVE ABNORMALITY SIMILAR TO 04/20/16 Electronically Signed On 12-18-2016 19:37:14 EDT by Ramirez Ricketts
[2016-12-18 21:30] VITALS: BP 170/80
[2016-12-18] MEDS: SIMVASTATIN 20 MG TAB PO SCH (23:07)
[2016-12-18] MEDS: LOSARTAN 50 MG TAB PO SCH (23:07)
[2016-12-18] MEDS: DIVALPROEX 250 MG TAB PO SCH (23:08)
[2016-12-18] MEDS: WARFARIN SOD 5 MG TAB PO SCH (23:08)
[2016-12-18] MEDS: DIGOXIN 0.125 MG TAB PO SCH (23:08)
[2016-12-18] MEDS: ATENOLOL 50 MG TAB PO SCH (23:10)
[2016-12-19] MEDS: LETROZOLE 2.5 MG TAB PO SCH ×2 (02:52→21:01)
[2016-12-19 06:00] VITALS: BP 160/78
[2016-12-19 06:25] LABS: MEAN CORPUSCULAR HEMOGLOBIN 28.6 pg (27.0-33.0); MEAN CORPUSCULAR HGB CONC 31.5 g/dl (32.0-36.5); MEAN CORPUSCULAR VOLUME 90.9 fl (80.0-96.0); RED CELL DISTRIBUTION WIDTH 14.9 % (11.5-14.5); WHITE BLOOD COUNT 4.2 K/mm3 (4.0-10.0)
[2016-12-19 06:32] LABS: INR 2.35
[2016-12-19 06:57] LABS: ALBUMIN 2.6 GM/DL (3.2-5.2); ALBUMIN/GLOBULIN RATIO 0.76 (1.00-1.93); ALKALINE PHOSPHATASE 64 U/L (45-117); ALT/SGPT 14 U/L (12-78); ANION GAP 10 MEQ/L (8-16); AST/SGOT 22 U/L (15-37); BILIRUBIN,TOTAL 0.5 MG/DL (0.2-1.0); BLOOD UREA NITROGEN 22 MG/DL (7-18); CALCIUM LEVEL 8.5 MG/DL (8.8-10.2); CARBON DIOXIDE LEVEL 28 MEQ/L (21-32); CHLORIDE LEVEL 105 MEQ/L (98-107); CREATININE FOR GFR 0.78 MG/DL (0.55-1.02); GLOMERULAR FILTRATION RATE > 60.0 (>32); GLUCOSE, FASTING 86 MG/DL (83-110); POTASSIUM SERUM 3.5 MEQ/L (3.5-5.1); SODIUM LEVEL 143 MEQ/L (136-145)
[2016-12-19 07:06] LABS: DIGOXIN LEVEL 0.9 NG/ML (0.5-2.0)
[2016-12-19] MEDS: VENLAFAXINE **XR** 75MG CAPSULE PO SCH (09:09)
[2016-12-19] MEDS: DIVALPROEX 500 MG TAB PO SCH (09:09)
[2016-12-19] MEDS: POTASSIUM CHLORIDE 10 MEQ SR TABLET PO SCH (09:09)
[2016-12-19] MEDS: ACETAMINOPHEN TAB 650MG DOSE (2X325MG) PO PRN ×2 (09:09→16:01)
--- NOTE | 2016-12-19 10:09 | REP ---
Clinical: Pain. Rule out fracture. Technique: Single AP view of the left hip. Findings: Early advanced degenerative changes are appreciated with joint space narrowing, subchondral heterogeneity and cystic changes to the associated acetabulum and femoral head. Marginal spurring along the acetabulum as well as the femoral head/neck junction are also identified. No obvious acute fracture dislocation. Impression: Early advanced degenerative changes. No acute fracture dislocation. Signed by Don Rabago MD 12/19/2016 10:01 A
[2016-12-19] MEDS: FUROSEMIDE 100 MG/10 ML VIAL (J1940) IV SCH ×2 (11:20→17:08)
[2016-12-19] MEDS: VITAMIN D 1,000 INTERNATIONAL UNITS TABLET PO SCH (11:21)
--- NOTE | 2016-12-19 13:55 | IPNPDOC ---
Text Note Date of Service The patient was seen on 12/19/16. NOTE Subjective: Patient is an 86 year old female with a PMHx of Atrial fibrillation ( on Coumadin), HTN, DLP, CKD3, Breast CA, Chronic dependent edema of LE, and Chronic venous stasis changes, who presented to the ER with complaints of increase LE swelling and weight gain. She was found to have 3+ pitting edema in the ER and having difficulty with ambulation. Dr. Curran (Wound care) follows the patient as an outpatient and recommended optilock leg dressing placement and unna boots. Patient was seen and examined at the bedside. She notes some improvement in her LE swelling. She denies any chest pain, SOB, palpitations or cough. Objective: Vitals (See below) General: Lying in bed, no acute distress, comfortable, AAOx3 HEENT: NC, AT CVS: IrIr, +S1S2 Lungs: Fair air entry b/l, no appreciable crackles / rhonchi Abdomen: Soft, ND, NT Extremities: 2+ pitting edema, Bilateral dressing in place (as per wound care recommendations), - Calf tenderness Assessment and plan: Acute on Chronic LE pitting edema - likely 2/2 diet non-compliance - Presented with worsening LE edema causing difficulty with ambulation - Physical reveals 3+ pitting edema bilaterally, improving - Duplex US 12/18: Negative for DVT - ECHO pendign - c/w Furosemide 60 IV BID; Changed from Torsemide 40 /20 - c/w Strict ins/outs, Daily weights, - Physical therapy pending Left hip pain - noted she had fallen several times as an outpatient; most recent 1 week prior - XR of L hip 12/19: negative - c/w Tylenol PRN Chronic venous stasis ulcers of LE - likely 2/2 chronic edema - c/w Wound care as per recommendations from Dr. Curran Atrial fibrillation - INR of 2.35 - Digoxin level therapeutic - c/w rate control with atenolol and digoxin - c/w Coumadin HTN - c/w Atenolol and Losartan DLP - c/w Simvastatin CKD3 - Cr at baseline Depression - c/w Venlafaxine Seizure history - c/w Depakote History of Breast CA - Follows with Dr. Hercules as an outpatient DVT prophylaxis - on full anticoagulation with Coumadin Disposition: - c/w diuretic therapy to improve LE edema - Awaiting PT clearance - May require placement to assisted living VS,Fishbone, I+O VS, Fishbone, I+O Laboratory Tests 12/18/16 14:02 Red Blood Count 3.86 L, Mean Corpuscular Volume 91.5, Mean Corpuscular Hemoglobin 29.4, Mean Corpuscular Hemoglobin Concent 32.2, Red Cell Distribution Width 15.0 H 12/19/16 06:02 Red Blood Count 3.75 L, Mean Corpuscular Volume 90.9, Mean Corpuscular Hemoglobin 28.6, Mean Corpuscular Hemoglobin Concent 31.5 L, Red Cell Distribution Width 14.9 H, Calcium Level 8.5 L, Aspartate Amino Transf (AST/SGOT ) 22, Alanine Aminotransferase (ALT/SGPT) 14, Total Creatine Kinase 83, Alkaline Phosphatase 64, Total Bilirubin 0.5, Total Protein 6.0 L, Albumin 2.6 L Vital Signs Date Time Temp Pulse Resp B/P (MAP) Pulse Ox O2 Delivery O2 Flow Rate FiO2 12/19/16 08:30 Room Air 12/19/16 06:00 99.1 77 18 160/78 (105) 98 I&O- Last 24 Hours up to 6 AM 12/19/16 06:00 Intake Total 360 ml Output Total 1200 ml Balance -840 ml MACEY BROWN MD Dec 19, 2016 13:55
[2016-12-19 14:00] VITALS: BP 154/73
[2016-12-19] MEDS: WARFARIN SOD 2.5 MG TAB PO SCH (17:06)
[2016-12-19 17:08] VITALS: BP 156/70
[2016-12-19] MEDS: LOSARTAN 50 MG TAB PO SCH (21:00)
[2016-12-19] MEDS: ATENOLOL 50 MG TAB PO SCH (21:00)
[2016-12-19] MEDS: DIGOXIN 0.125 MG TAB PO SCH (21:02)
[2016-12-19] MEDS: SIMVASTATIN 20 MG TAB PO SCH (21:02)
[2016-12-19] MEDS: DIVALPROEX 250 MG TAB PO SCH (21:03)
[2016-12-19 22:00] VITALS: BP 118/66
[2016-12-20] MEDS: ACETAMINOPHEN TAB 650MG DOSE (2X325MG) PO PRN ×3 (02:44→20:53)
[2016-12-20 06:00] VITALS: BP 185/87
[2016-12-20 07:07] LABS: MEAN CORPUSCULAR HEMOGLOBIN 30.4 pg (27.0-33.0); MEAN CORPUSCULAR HGB CONC 33.4 g/dl (32.0-36.5); WHITE BLOOD COUNT 4.5 K/mm3 (4.0-10.0)
[2016-12-20 07:11] LABS: INR 2.53
[2016-12-20 07:36] LABS: ALBUMIN 2.6 GM/DL (3.2-5.2); ALBUMIN/GLOBULIN RATIO 0.63 (1.00-1.93); ALKALINE PHOSPHATASE 63 U/L (45-117); ALT/SGPT 13 U/L (12-78); ANION GAP 6 MEQ/L (8-16); AST/SGOT 17 U/L (15-37); BILIRUBIN,TOTAL 0.5 MG/DL (0.2-1.0); BLOOD UREA NITROGEN 24 MG/DL (7-18); CALCIUM LEVEL 8.8 MG/DL (8.8-10.2); CARBON DIOXIDE LEVEL 32 MEQ/L (21-32); CHLORIDE LEVEL 102 MEQ/L (98-107); CREATININE FOR GFR 0.82 MG/DL (0.55-1.02); GLOMERULAR FILTRATION RATE > 60.0 (>32); GLUCOSE, FASTING 88 MG/DL (83-110); POTASSIUM SERUM 3.5 MEQ/L (3.5-5.1); SODIUM LEVEL 140 MEQ/L (136-145); TOTAL PROTEIN 6.7 GM/DL (6.4-8.2)
[2016-12-20] MEDS ORDERED: INFLUENZA VIRUS VACCINE HIGH DOSE 0.5 ML SYRINGE (90662) IM ONE (09:00)
[2016-12-20] MEDS: POTASSIUM CHLORIDE 10 MEQ SR TABLET PO SCH (09:09)
[2016-12-20] MEDS: DIVALPROEX 500 MG TAB PO SCH (09:09)
[2016-12-20] MEDS: VENLAFAXINE **XR** 75MG CAPSULE PO SCH (09:09)
[2016-12-20] MEDS: FUROSEMIDE 100 MG/10 ML VIAL (J1940) IV SCH ×2 (09:09→17:00)
[2016-12-20] MEDS: VITAMIN D 1,000 INTERNATIONAL UNITS TABLET PO SCH (12:38)
--- NOTE | 2016-12-20 13:06 | IPNPDOC ---
Text Note Date of Service The patient was seen on 12/20/16. NOTE Subjective: Patient is an 86 year old female with a PMHx of Atrial fibrillation ( on Coumadin), HTN, DLP, CKD3, Breast CA, Chronic dependent edema of LE, and Chronic venous stasis changes, who presented to the ER with complaints of increase LE swelling and weight gain. She was found to have 3+ pitting edema in the ER and having difficulty with ambulation. Dr. Curran (Wound care) follows the patient as an outpatient and recommended optilock leg dressing placement and unna boots. Patient was seen and examined at the bedside. She notes that her swelling is improved. She denies any shortness of breath. Is working with physical therapy. Objective: Vitals (See below) General: Lying in bed, no acute distress, comfortable, AAOx3 HEENT: NC, AT CVS: IrIr, +S1S2 Lungs: Fair air entry b/l, no appreciable crackles / rhonchi Abdomen: Soft, ND, NT Extremities: 2+ pitting edema that continues to improve, Bilateral dressing in place (as per wound care recommendations), - Calf tenderness Assessment and plan: Acute on Chronic LE pitting edema - likely 2/2 diet non-compliance - Presented with worsening LE edema causing difficulty with ambulation - Physical reveals pitting edema bilaterally that is improving - Duplex US 12/18: Negative for DVT - ECHO complete; report pending - c/w Furosemide 60 IV BID; Changed from Torsemide 40 /20 - c/w Strict ins/outs, Daily weights - Physical therapy current recommendations for home with services (not cleared) Left hip pain - noted she had fallen several times as an outpatient; most recent 1 week prior - XR of L hip 12/19: negative - c/w Tylenol PRN Chronic venous stasis ulcers of LE - likely 2/2 chronic edema - c/w Wound care as per recommendations from Dr. Curran Atrial fibrillation - INR of 2.53 - Digoxin level therapeutic - c/w rate control with atenolol and digoxin - c/w Coumadin HTN - c/w Atenolol and Losartan DLP - c/w Simvastatin CKD3 - Cr at baseline Depression - c/w Venlafaxine Seizure history - c/w Depakote History of Breast CA - Follows with Dr. Hercules as an outpatient DVT prophylaxis - on full anticoagulation with Coumadin Disposition: - c/w diuretic therapy to improve LE edema; will transition to oral medications tomorrow - Awaiting PT clearance - Will likely placement to assisted living VS,[place], I+O VS, [place], I+O Laboratory Tests 12/20/16 06:50 Red Blood Count 3.59 L, Mean Corpuscular Volume 91.0, Mean Corpuscular Hemoglobin 30.4, Mean Corpuscular Hemoglobin Concent 33.4, Red Cell Distribution Width 15.0 H, Calcium Level 8.8, Aspartate Amino Transf (AST/SGOT) 17, Alanine Aminotransferase (ALT/SGPT) 13, Alkaline Phosphatase 63, Total Bilirubin 0.5, Total Protein 6.7, Albumin 2.6 L Vital Signs Date Time Temp Pulse Resp B/P (MAP) Pulse Ox O2 Delivery O2 Flow Rate FiO2 12/20/16 08:00 Room Air 12/20/16 06:00 98.7 75 14 185/87 (119) 98 I&O- Last 24 Hours up to 6 AM 12/20/16 05:59 Intake Total 1170 ml Output Total 2400 ml Balance -1230 ml MACEY BROWN MD Dec 20, 2016 13:06
[2016-12-20 14:00] VITALS: BP 110/58
[2016-12-20 16:36] VITALS: BP 117/57
[2016-12-20] MEDS: WARFARIN SOD 5 MG TAB PO SCH (17:00)
[2016-12-20] MEDS: LOSARTAN 50 MG TAB PO SCH (20:44)
[2016-12-20] MEDS: SIMVASTATIN 20 MG TAB PO SCH (20:45)
[2016-12-20] MEDS: ATENOLOL 50 MG TAB PO SCH (20:45)
[2016-12-20] MEDS: DIVALPROEX 250 MG TAB PO SCH (20:45)
[2016-12-20] MEDS: LETROZOLE 2.5 MG TAB PO SCH (20:45)
[2016-12-20] MEDS: DIGOXIN 0.125 MG TAB PO SCH (20:46)
[2016-12-20 22:00] VITALS: BP 124/57
[2016-12-21 06:00] VITALS: BP 189/87
[2016-12-21] MEDS: ACETAMINOPHEN TAB 650MG DOSE (2X325MG) PO PRN ×2 (06:26→20:54)
[2016-12-21 07:24] LABS: MEAN CORPUSCULAR HEMOGLOBIN 29.5 pg (27.0-33.0); MEAN CORPUSCULAR HGB CONC 32.9 g/dl (32.0-36.5); MEAN CORPUSCULAR VOLUME 89.7 fl (80.0-96.0); RED CELL DISTRIBUTION WIDTH 14.7 % (11.5-14.5); WHITE BLOOD COUNT 4.8 K/mm3 (4.0-10.0)
[2016-12-21 07:31] LABS: INR 2.61
[2016-12-21 07:39] LABS: ALBUMIN 2.5 GM/DL (3.2-5.2); ALBUMIN/GLOBULIN RATIO 0.71 (1.00-1.93); ALKALINE PHOSPHATASE 66 U/L (45-117); ALT/SGPT 14 U/L (12-78); ANION GAP 7 MEQ/L (8-16); AST/SGOT 13 U/L (15-37); BILIRUBIN,TOTAL 0.3 MG/DL (0.2-1.0); BLOOD UREA NITROGEN 31 MG/DL (7-18); CARBON DIOXIDE LEVEL 31 MEQ/L (21-32); CHLORIDE LEVEL 106 MEQ/L (98-107); CREATININE FOR GFR 0.79 MG/DL (0.55-1.02); GLOMERULAR FILTRATION RATE > 60.0 (>32); GLUCOSE, FASTING 83 MG/DL (83-110); MAGNESIUM LEVEL 2.1 MG/DL (1.8-2.4); POTASSIUM SERUM 3.6 MEQ/L (3.5-5.1); SODIUM LEVEL 144 MEQ/L (136-145)
[2016-12-21] MEDS: FUROSEMIDE 100 MG/10 ML VIAL (J1940) IV SCH ×2 (10:51→17:27)
[2016-12-21] MEDS: VENLAFAXINE **XR** 75MG CAPSULE PO SCH (10:51)
[2016-12-21] MEDS: DIVALPROEX 500 MG TAB PO SCH (10:52)
[2016-12-21] MEDS: POTASSIUM CHLORIDE 10 MEQ SR TABLET PO SCH (10:52)
[2016-12-21] MEDS: VITAMIN D 1,000 INTERNATIONAL UNITS TABLET PO SCH (10:53)
[2016-12-21] MEDS ORDERED: ATENOLOL 50 MG TAB PO ONE (11:00)
--- NOTE | 2016-12-21 12:25 | IPNPDOC ---
Text Note Date of Service The patient was seen on 12/21/16. NOTE Subjective: Patient is an 86 year old female with a PMHx of Atrial fibrillation ( on Coumadin), HTN, DLP, CKD3, Breast CA, Chronic dependent edema of LE, and Chronic venous stasis changes, who presented to the ER with complaints of increase LE swelling and weight gain. She was found to have 3+ pitting edema in the ER and having difficulty with ambulation. Dr. Curran (Wound care) follows the patient as an outpatient and recommended optilock leg dressing placement and unna boots. Patient was seen and examined at the bedside. Her legs continue to improve. I have advised her that we will continue to provide dressing changes and will switch her back to oral diuretics tomorrow. Objective: Vitals (See below) General: Lying in bed, no acute distress, comfortable, AAOx3 HEENT: NC, AT CVS: IrIr, +S1S2 Lungs: Fair air entry b/l, no appreciable crackles / rhonchi Abdomen: Soft, ND, NT Extremities: 2+ pitting edema that continues to improve, Bilateral dressing in place (as per wound care recommendations), - Calf tenderness Assessment and plan: Acute on Chronic LE pitting edema - likely 2/2 diet non-compliance - Presented with worsening LE edema causing difficulty with ambulation - Physical reveals pitting edema bilaterally that is improving - Duplex US 12/18: Negative for DVT - ECHO complete; report pending - c/w Furosemide 60 IV BID; Will switch to Torsemide 40 am and 20 at 3pm - c/w Strict ins/outs, Daily weights - Physical therapy current recommendations for home with services / SNF (not cleared) s/p Left hip pain - noted she had fallen several times as an outpatient; most recent 1 week prior - XR of L hip 12/19: negative - c/w Tylenol PRN Chronic venous stasis ulcers of LE - likely 2/2 chronic edema - c/w Wound care as per recommendations from Dr. Curran Atrial fibrillation - INR of 2.61 - Digoxin level therapeutic - c/w rate control with atenolol and digoxin - c/w Coumadin HTN - c/w Atenolol and Losartan DLP - c/w Simvastatin CKD3 - Cr at baseline Depression - c/w Venlafaxine Seizure history - c/w Depakote History of Breast CA - Follows with Dr. Hercules as an outpatient DVT prophylaxis - on full anticoagulation with Coumadin Disposition: - c/w diuretic therapy to improve LE edema; will change to Torsemide tomorrow - Awaiting PT clearance, but will likely need placement to assisted living VS,Fishbone, I+O VS, Fishbone, I+O Laboratory Tests 12/21/16 06:44 Red Blood Count 3.68 L, Mean Corpuscular Volume 89.7, Mean Corpuscular Hemoglobin 29.5, Mean Corpuscular Hemoglobin Concent 32.9, Red Cell Distribution Width 14.7 H, Calcium Level 8.0 L, Aspartate Amino Transf (AST/SGOT ) 13 L, Alanine Aminotransferase (ALT/SGPT) 14, Alkaline Phosphatase 66, Total Bilirubin 0.3, Total Protein 6.0 L, Albumin 2.5 L Vital Signs Date Time Temp Pulse Resp B/P (MAP) Pulse Ox O2 Delivery O2 Flow Rate FiO2 12/21/16 10:53 74 189/87 12/21/16 06:00 98.6 14 94 Room Air I&O- Last 24 Hours up to 6 AM 12/21/16 06:00 Intake Total 1260 ml Output Total 1325 ml Balance -65 ml MACEY BROWN MD Dec 21, 2016 12:25
[2016-12-21 14:00] VITALS: BP 141/72
[2016-12-21] MEDS: WARFARIN SOD 2.5 MG TAB PO SCH (17:27)
[2016-12-21] MEDS: SIMVASTATIN 20 MG TAB PO SCH (20:54)
[2016-12-21] MEDS: LOSARTAN 50 MG TAB PO SCH (20:55)
[2016-12-21] MEDS: DIVALPROEX 250 MG TAB PO SCH (20:55)
[2016-12-21] MEDS: DIGOXIN 0.125 MG TAB PO SCH (20:55)
[2016-12-21] MEDS: LETROZOLE 2.5 MG TAB PO SCH (20:55)
[2016-12-21 22:00] VITALS: BP 142/71
[2016-12-22 06:00] VITALS: BP 181/83
[2016-12-22 07:53] LABS: MEAN CORPUSCULAR HEMOGLOBIN 29.9 pg (27.0-33.0); MEAN CORPUSCULAR HGB CONC 33.1 g/dl (32.0-36.5); MEAN CORPUSCULAR VOLUME 90.2 fl (80.0-96.0); RED CELL DISTRIBUTION WIDTH 14.6 % (11.5-14.5); WHITE BLOOD COUNT 5.1 K/mm3 (4.0-10.0)
[2016-12-22 08:12] LABS: INR 2.9
[2016-12-22] MEDS: TORSEMIDE 20 MG TAB PO SCH ×2 (08:22→15:27)
[2016-12-22] MEDS: DIVALPROEX 500 MG TAB PO SCH (08:23)
[2016-12-22] MEDS: VENLAFAXINE **XR** 75MG CAPSULE PO SCH (08:23)
[2016-12-22] MEDS: POTASSIUM CHLORIDE 10 MEQ SR TABLET PO SCH (08:23)
[2016-12-22] MEDS: ATENOLOL 50 MG TAB PO SCH (08:24)
[2016-12-22 08:41] LABS: ALBUMIN 2.4 GM/DL (3.2-5.2); ALBUMIN/GLOBULIN RATIO 0.75 (1.00-1.93); ALKALINE PHOSPHATASE 68 U/L (45-117); ALT/SGPT 14 U/L (12-78); ANION GAP 8 MEQ/L (8-16); AST/SGOT 17 U/L (15-37); BILIRUBIN,TOTAL 0.3 MG/DL (0.2-1.0); BLOOD UREA NITROGEN 27 MG/DL (7-18); CALCIUM LEVEL 8.5 MG/DL (8.8-10.2); CARBON DIOXIDE LEVEL 30 MEQ/L (21-32); CHLORIDE LEVEL 107 MEQ/L (98-107); CREATININE FOR GFR 0.79 MG/DL (0.55-1.02); GLOMERULAR FILTRATION RATE > 60.0 (>32); GLUCOSE, FASTING 93 MG/DL (83-110); MAGNESIUM LEVEL 1.9 MG/DL (1.8-2.4); SODIUM LEVEL 145 MEQ/L (136-145); TOTAL PROTEIN 5.6 GM/DL (6.4-8.2)
--- NOTE | 2016-12-22 09:46 | ECHO ---
DATE OF SERVICE: 12/19/2016 REFERRING PROVIDER: Dr. Awa Barton REASON FOR ECHOCARDIOGRAM: Heart failure, unspecified. 2D MEASUREMENTS: IVS: 1.2 cm LV: 4.3 cm LVPW: 1.1 cm LA: 3.6 cm Aorta: 2.9 cm IVC: 1.3 cm DOPPLER MEASUREMENTS: Peak velocity across the aortic valve: 1.6 m/s Peak velocity across the LVOT: 0.74 m/s Mitral E: 1.2 Mitral A: 0.46 with a ratio of 2.6 Maximum tricuspid valve velocity: 2.7 m/s 2D COMMENTS: 1. Normal left ventricular size, wall thickness, and global left ventricular systolic function. The estimated left ventricular systolic ejection fraction is 60-65%. 2. Subjectively, the left atrium and the right ventricle appear to be mildly enlarged. Normal right ventricle. 3. The atrial septum appeared to be normal without evidence of defect or shunt. 4. Normal aortic root. 5. No pericardial effusions seen. 6. Minimal calcified aortic valve with normal leaflet excursion. Mildly calcified mitral annulus with normal anterior mitral valve leaflet motion. Normal tricuspid valve and pulmonic valve. The proximal pulmonary artery branches were not visualized. 7. The inferior vena cava was normal in size, central venous pressure is most likely normal. DOPPLER: It detects mild aortic regurgitation and mild to moderate mitral regurgitation, moderate tricuspid regurgitation, and mild pulmonic regurgitation. The calculated pulmonary artery systolic pressure value is between 30 to 40 mmHg. Assessment of the left ventricular diastolic function appeared to be normal. IMPRESSION: 1. Normal global left ventricular systolic function. Assessment of the left ventricular diastolic function appear to be normal. 2. Subjectively, the left atrium and the right atrium appear to be minimally enlarged. 3. Aortic valve sclerosis with mild aortic regurgitation, but no aortic stenosis. 4. Mitral annulus calcification with mild to moderate mitral regurgitation. 5. Moderate tricuspid regurgitation with mild pulmonary hypertension. 6. Mild pulmonic regurgitation. MTDD
[2016-12-22] MEDS: VITAMIN D 1,000 INTERNATIONAL UNITS TABLET PO SCH (12:11)
--- NOTE | 2016-12-22 13:00 | IPNPDOC ---
Text Note Date of Service The patient was seen on 12/22/16. NOTE Subjective: Patient is an 86 year old female with a PMHx of Atrial fibrillation ( on Coumadin), HTN, DLP, CKD3, Breast CA, Chronic dependent edema of LE, and Chronic venous stasis changes, who presented to the ER with complaints of increase LE swelling and weight gain. She was found to have 3+ pitting edema in the ER and having difficulty with ambulation. Dr. Curran (Wound care) follows the patient as an outpatient and recommended optilock leg dressing placement and unna boots. Patient was seen and examined at the bedside. She has not complaints today, and is interested in options for assisted living. Objective: Vitals (See below) General: Lying in bed, no acute distress, comfortable, AAOx3 HEENT: NC, AT CVS: IrIr, +S1S2 Lungs: Fair air entry b/l, no appreciable crackles / rhonchi Abdomen: Soft, ND, NT Extremities: Pitting edema continues to improve, Bilateral dressing in place ( as per wound care recommendations), - Calf tenderness Assessment and plan: Acute on Chronic LE pitting edema - likely 2/2 diet non-compliance - Presented with worsening LE edema causing difficulty with ambulation - Physical reveals pitting edema bilaterally that is improving - Duplex US 12/18: Negative for DVT - ECHO 12/22: EF 60-65%, Normal diastolic function, Moderate TR, Mild Pulmonary HTN, Mild pulmonic regurgitation - c/w Torsemide 40 am and 20 at 3pm; s/p Furosemide 60 IV BID - c/w Strict ins/outs, Daily weights; has had -3000 cc output since admission - Physical therapy current recommendations for Assisted living vs. Rehab (not cleared) s/p Left hip pain - noted she had fallen several times as an outpatient; most recent 1 week prior - XR of L hip 12/19: negative - c/w Tylenol PRN Chronic venous stasis ulcers of LE - likely 2/2 chronic edema - c/w Wound care as per recommendations from Dr. Curran Atrial fibrillation - INR of 2.90 - Digoxin level therapeutic - c/w rate control with atenolol and digoxin - c/w Coumadin HTN - c/w Atenolol and Losartan DLP - c/w Simvastatin CKD3 - Cr at baseline Depression - c/w Venlafaxine Seizure history - c/w Depakote History of Breast CA - Follows with Dr. Hercules as an outpatient DVT prophylaxis - on full anticoagulation with Coumadin Disposition: - Awaiting PT clearance, but will likely need placement to assisted living VS,Fishbone, I+O VS, Fishbone, I+O Laboratory Tests 12/22/16 07:43 Red Blood Count 3.56 L, Mean Corpuscular Volume 90.2, Mean Corpuscular Hemoglobin 29.9, Mean Corpuscular Hemoglobin Concent 33.1, Red Cell Distribution Width 14.6 H, Calcium Level 8.5 L, Aspartate Amino Transf (AST/SGOT ) 17, Alanine Aminotransferase (ALT/SGPT) 14, Alkaline Phosphatase 68, Total Bilirubin 0.3, Total Protein 5.6 L, Albumin 2.4 L Vital Signs Date Time Temp Pulse Resp B/P (MAP) Pulse Ox O2 Delivery O2 Flow Rate FiO2 12/22/16 08:24 80 131/61 12/22/16 06:00 99.0 16 98 Room Air I&O- Last 24 Hours up to 6 AM 12/22/16 05:59 Intake Total 1440 ml Output Total 1800 ml Balance -360 ml MACEY BROWN MD Dec 22, 2016 13:00
[2016-12-22 15:23] VITALS: BP 117/57
[2016-12-22] MEDS: WARFARIN SOD 5 MG TAB PO SCH (16:41)
[2016-12-22] MEDS: DIVALPROEX 250 MG TAB PO SCH (19:57)
[2016-12-22] MEDS: LOSARTAN 50 MG TAB PO SCH (19:58)
[2016-12-22] MEDS: SIMVASTATIN 20 MG TAB PO SCH (19:58)
[2016-12-22] MEDS: LETROZOLE 2.5 MG TAB PO SCH (19:58)
[2016-12-22] MEDS: DIGOXIN 0.125 MG TAB PO SCH (19:58)
[2016-12-22] MEDS: ACETAMINOPHEN TAB 650MG DOSE (2X325MG) PO PRN (19:59)
[2016-12-22 22:00] VITALS: BP 131/60
[2016-12-23 06:00] VITALS: BP 143/81
[2016-12-23 07:50] LABS: MEAN CORPUSCULAR HEMOGLOBIN 30.2 pg (27.0-33.0); MEAN CORPUSCULAR HGB CONC 33.4 g/dl (32.0-36.5); MEAN CORPUSCULAR VOLUME 90.5 fl (80.0-96.0); RED CELL DISTRIBUTION WIDTH 14.7 % (11.5-14.5); WHITE BLOOD COUNT 4.2 K/mm3 (4.0-10.0)
[2016-12-23 07:57] LABS: INR 2.33
[2016-12-23 08:27] LABS: ALBUMIN 2.4 GM/DL (3.2-5.2); ALBUMIN/GLOBULIN RATIO 0.73 (1.00-1.93); ALKALINE PHOSPHATASE 69 U/L (45-117); ALT/SGPT 12 U/L (12-78); ANION GAP 8 MEQ/L (8-16); AST/SGOT 15 U/L (15-37); BILIRUBIN,TOTAL 0.3 MG/DL (0.2-1.0); BLOOD UREA NITROGEN 25 MG/DL (7-18); CALCIUM LEVEL 8.1 MG/DL (8.8-10.2); CARBON DIOXIDE LEVEL 32 MEQ/L (21-32); CHLORIDE LEVEL 104 MEQ/L (98-107); CREATININE FOR GFR 0.71 MG/DL (0.55-1.02); GLOMERULAR FILTRATION RATE > 60.0 (>32); GLUCOSE, FASTING 88 MG/DL (83-110); POTASSIUM SERUM 3.3 MEQ/L (3.5-5.1); SODIUM LEVEL 144 MEQ/L (136-145); TOTAL PROTEIN 5.7 GM/DL (6.4-8.2)
[2016-12-23] MEDS: TORSEMIDE 20 MG TAB PO SCH ×2 (09:47→16:40)
[2016-12-23] MEDS: POTASSIUM CHLORIDE 10 MEQ SR TABLET PO SCH (09:48)
[2016-12-23] MEDS: ATENOLOL 50 MG TAB PO SCH (09:48)
[2016-12-23] MEDS: DIVALPROEX 500 MG TAB PO SCH (09:48)
[2016-12-23] MEDS: VENLAFAXINE **XR** 75MG CAPSULE PO SCH (09:48)
[2016-12-23] MEDS: VITAMIN D 1,000 INTERNATIONAL UNITS TABLET PO SCH (12:50)
--- NOTE | 2016-12-23 13:57 | IPNPDOC ---
Text Note Date of Service The patient was seen on 12/23/16. NOTE Subjective: Patient is an 86 year old female with a PMHx of Atrial fibrillation ( on Coumadin), HTN, DLP, CKD3, Breast CA, Chronic dependent edema of LE, and Chronic venous stasis changes, who presented to the ER with complaints of increase LE swelling and weight gain. She was found to have 3+ pitting edema in the ER and having difficulty with ambulation. Dr. Curran (Wound care) follows the patient as an outpatient and recommended optilock leg dressing placement and unna boots. Patient was seen and examined at the bedside. No new changes since yesterday. She notes that she is tolerating the change form IV to oral diuretics. Objective: Vitals (See below) General: Lying in bed, no acute distress, comfortable, AAOx3 HEENT: NC, AT CVS: IrIr, +S1S2 Lungs: Fair air entry b/l, no appreciable crackles / rhonchi Abdomen: Soft, ND, NT Extremities: Improved pitting edema, Bilateral dressing in place (as per wound care recommendations), - Calf tenderness Assessment and plan: Acute on Chronic LE pitting edema - likely 2/2 diet non-compliance - Presented with worsening LE edema causing difficulty with ambulation; has improved significantly - Physical continues to show improving LE edema, wound dressing in place - Duplex US 12/18: Negative for DVT - ECHO 12/22: EF 60-65%, Normal diastolic function, Moderate TR, Mild Pulmonary HTN, Mild pulmonic regurgitation - c/w Torsemide at home dose; s/p Furosemide 60 IV BID - c/w Strict ins/outs, Daily weights; has had -3000 cc output since admission - Physical therapy current recommendations for Assisted living vs. Rehab (not cleared) s/p Left hip pain - noted she had fallen several times as an outpatient; most recent 1 week prior to admission - XR of L hip 12/19: negative - c/w Tylenol PRN Chronic venous stasis ulcers of LE - likely 2/2 chronic edema - c/w Wound care as per recommendations from Dr. Curran Atrial fibrillation - INR of 2.33 - Digoxin level therapeutic 12/19 - c/w rate control with atenolol and digoxin - c/w Coumadin HTN - c/w Atenolol and Losartan DLP - c/w Simvastatin CKD3 - Cr at baseline Depression - c/w Venlafaxine Seizure history - c/w Depakote History of Breast CA - Follows with Dr. Hercules as an outpatient DVT prophylaxis - on full anticoagulation with Coumadin Disposition: - Awaiting PT clearance, but will likely need placement to assisted living VS,Fishbone, I+O VS, Fishbone, I+O Laboratory Tests 12/23/16 07:41 Red Blood Count 3.41 L, Mean Corpuscular Volume 90.5, Mean Corpuscular Hemoglobin 30.2, Mean Corpuscular Hemoglobin Concent 33.4, Red Cell Distribution Width 14.7 H, Calcium Level 8.1 L, Aspartate Amino Transf (AST/SGOT ) 15, Alanine Aminotransferase (ALT/SGPT) 12, Alkaline Phosphatase 69, Total Bilirubin 0.3, Total Protein 5.7 L, Albumin 2.4 L Vital Signs Date Time Temp Pulse Resp B/P (MAP) Pulse Ox O2 Delivery O2 Flow Rate FiO2 12/23/16 09:48 67 143/81 12/23/16 06:00 98.1 20 98 Room Air I&O- Last 24 Hours up to 6 AM 12/23/16 06:00 Intake Total 1410 ml Output Total 1875 ml Balance -465 ml MACEY BROWN MD Dec 23, 2016 13:57
[2016-12-23 14:00] VITALS: BP 125/60
[2016-12-23] MEDS: WARFARIN SOD 2.5 MG TAB PO SCH (16:40)
[2016-12-23] MEDS: LOSARTAN 50 MG TAB PO SCH (20:44)
[2016-12-23] MEDS: DIGOXIN 0.125 MG TAB PO SCH (20:45)
[2016-12-23] MEDS: LETROZOLE 2.5 MG TAB PO SCH (20:45)
[2016-12-23] MEDS: DIVALPROEX 250 MG TAB PO SCH (20:45)
[2016-12-23] MEDS: SIMVASTATIN 20 MG TAB PO SCH (20:45)
[2016-12-23 22:00] VITALS: BP 131/61
[2016-12-24 06:00] VITALS: BP 166/71
[2016-12-24 06:57] LABS: MEAN CORPUSCULAR HEMOGLOBIN 29.3 pg (27.0-33.0); MEAN CORPUSCULAR HGB CONC 33.3 g/dl (32.0-36.5); MEAN CORPUSCULAR VOLUME 88.2 fl (80.0-96.0); RED CELL DISTRIBUTION WIDTH 14.5 % (11.5-14.5); WHITE BLOOD COUNT 4.3 K/mm3 (4.0-10.0)
[2016-12-24 07:00] LABS: INR 2.13
[2016-12-24 07:20] LABS: ALBUMIN 2.3 GM/DL (3.2-5.2); ALBUMIN/GLOBULIN RATIO 0.59 (1.00-1.93); ALKALINE PHOSPHATASE 68 U/L (45-117); ALT/SGPT 13 U/L (12-78); ANION GAP 8 MEQ/L (8-16); AST/SGOT 15 U/L (15-37); BILIRUBIN,TOTAL 0.3 MG/DL (0.2-1.0); BLOOD UREA NITROGEN 26 MG/DL (7-18); CALCIUM LEVEL 8.4 MG/DL (8.8-10.2); CARBON DIOXIDE LEVEL 32 MEQ/L (21-32); CHLORIDE LEVEL 102 MEQ/L (98-107); CREATININE FOR GFR 0.81 MG/DL (0.55-1.02); GLOMERULAR FILTRATION RATE > 60.0 (>32); GLUCOSE, FASTING 89 MG/DL (83-110); MAGNESIUM LEVEL 2.1 MG/DL (1.8-2.4); POTASSIUM SERUM 3.5 MEQ/L (3.5-5.1); SODIUM LEVEL 142 MEQ/L (136-145); TOTAL PROTEIN 6.2 GM/DL (6.4-8.2)
[2016-12-24] MEDS: TORSEMIDE 20 MG TAB PO SCH ×2 (09:00→13:47)
[2016-12-24] MEDS: VENLAFAXINE **XR** 75MG CAPSULE PO SCH (09:00)
[2016-12-24] MEDS: POTASSIUM CHLORIDE 10 MEQ SR TABLET PO SCH (09:00)
[2016-12-24] MEDS: ATENOLOL 50 MG TAB PO SCH (09:00)
[2016-12-24] MEDS: DIVALPROEX 500 MG TAB PO SCH (09:00)
[2016-12-24] MEDS: VITAMIN D 1,000 INTERNATIONAL UNITS TABLET PO SCH (12:00)
--- NOTE | 2016-12-24 12:54 | IPNPDOC ---
Text Note Date of Service The patient was seen on 12/24/16. NOTE Subjective: Patient is an 86 year old female with a PMHx of Atrial fibrillation ( on Coumadin), HTN, DLP, CKD3, Breast CA, Chronic dependent edema of LE, and Chronic venous stasis changes, who presented to the ER with complaints of increase LE swelling and weight gain. She was found to have 3+ pitting edema in the ER and having difficulty with ambulation. Dr. Curran (Wound care) follows the patient as an outpatient and recommended optilock leg dressing placement and unna boots. Patient was seen and examined at the bedside. She notes that there are no new changes from overnight. Objective: Vitals (See below) General: Lying in bed, no acute distress, comfortable, AAOx3 HEENT: NC, AT CVS: IrIr, +S1S2 Lungs: Fair air entry b/l, no appreciable crackles / rhonchi Abdomen: Soft, ND, NT Extremities: Dressing in place, edema improving, - Calf tenderness Assessment and plan: Acute on Chronic LE pitting edema - likely 2/2 diet non-compliance - Presented with worsening LE edema causing difficulty with ambulation; appears to have resolved to baseline; improvement in ambulation noted - Duplex US 12/18: Negative for DVT - ECHO 12/22: EF 60-65%, Normal diastolic function, Moderate TR, Mild Pulmonary HTN, Mild pulmonic regurgitation - c/w Torsemide (outpatient dose); s/p Furosemide IV - Negative fluid balance of -3790 cc since admission - c/w PT and awaiting placement at assisted living s/p Left hip pain - Fall history as outpatient; most recent 1 week prior to admission - XR of L hip 12/19: negative - c/w Tylenol PRN Chronic venous stasis ulcers of LE - likely 2/2 chronic edema - c/w Wound care as per recommendations from Dr. Curran - Will have wounds re-evaluated by wound therapy nurse Atrial fibrillation - Will follow INR to ensure therapeutic - Digoxin level therapeutic 12/19 - c/w rate control with atenolol and digoxin - c/w Coumadin HTN - c/w Atenolol and Losartan DLP - c/w Simvastatin CKD3 - Cr at baseline Depression - c/w Venlafaxine Seizure history - c/w Depakote History of Breast CA - Follows with Dr. Hercules as an outpatient DVT prophylaxis - on full anticoagulation with Coumadin Disposition: - Awaiting PT clearance, but will likely need placement to assisted living VS,[place], I+O VS, [place], I+O Laboratory Tests 12/24/16 06:43 Red Blood Count 3.56 L, Mean Corpuscular Volume 88.2, Mean Corpuscular Hemoglobin 29.3, Mean Corpuscular Hemoglobin Concent 33.3, Red Cell Distribution Width 14.5, Calcium Level 8.4 L, Aspartate Amino Transf (AST/SGOT) 15, Alanine Aminotransferase (ALT/SGPT) 13, Alkaline Phosphatase 68, Total Bilirubin 0.3, Total Protein 6.2 L, Albumin 2.3 L Vital Signs Date Time Temp Pulse Resp B/P (MAP) Pulse Ox O2 Delivery O2 Flow Rate FiO2 12/24/16 09:00 71 166/71 12/24/16 06:00 98.6 18 96 Room Air I&O- Last 24 Hours up to 6 AM 12/24/16 06:00 Intake Total 2240 ml Output Total 2500 ml Balance -260 ml MACEY BROWN MD Dec 24, 2016 12:54
[2016-12-24 14:00] VITALS: BP 147/65
[2016-12-24] MEDS: WARFARIN SOD 2.5 MG TAB PO SCH (16:33)
[2016-12-24] MEDS: DIGOXIN 0.125 MG TAB PO SCH (20:57)
[2016-12-24] MEDS: LETROZOLE 2.5 MG TAB PO SCH (20:57)
[2016-12-24] MEDS: DIVALPROEX 250 MG TAB PO SCH (20:58)
[2016-12-24] MEDS: SIMVASTATIN 20 MG TAB PO SCH (20:58)
[2016-12-24] MEDS: LOSARTAN 50 MG TAB PO SCH (20:58)
[2016-12-24 22:00] VITALS: BP 151/72
[2016-12-25 06:00] VITALS: BP 163/78
[2016-12-25 06:47] LABS: MEAN CORPUSCULAR HEMOGLOBIN 29.6 pg (27.0-33.0); MEAN CORPUSCULAR HGB CONC 33.5 g/dl (32.0-36.5); MEAN CORPUSCULAR VOLUME 88.4 fl (80.0-96.0); RED CELL DISTRIBUTION WIDTH 14.4 % (11.5-14.5); WHITE BLOOD COUNT 4.4 K/mm3 (4.0-10.0)
[2016-12-25 06:50] LABS: INR 1.94
[2016-12-25 07:19] LABS: ALBUMIN 2.3 GM/DL (3.2-5.2); ALBUMIN/GLOBULIN RATIO 0.59 (1.00-1.93); ALKALINE PHOSPHATASE 70 U/L (45-117); ALT/SGPT 12 U/L (12-78); ANION GAP 6 MEQ/L (8-16); AST/SGOT 13 U/L (15-37); BILIRUBIN,TOTAL 0.4 MG/DL (0.2-1.0); BLOOD UREA NITROGEN 29 MG/DL (7-18); CALCIUM LEVEL 8.5 MG/DL (8.8-10.2); CARBON DIOXIDE LEVEL 34 MEQ/L (21-32); CHLORIDE LEVEL 102 MEQ/L (98-107); CREATININE FOR GFR 0.81 MG/DL (0.55-1.02); GLOMERULAR FILTRATION RATE > 60.0 (>32); GLUCOSE, FASTING 88 MG/DL (83-110); POTASSIUM SERUM 3.2 MEQ/L (3.5-5.1); SODIUM LEVEL 142 MEQ/L (136-145); TOTAL PROTEIN 6.2 GM/DL (6.4-8.2)
[2016-12-25] MEDS: POTASSIUM CHLORIDE 10 MEQ SR TABLET PO SCH (08:31)
[2016-12-25] MEDS: TORSEMIDE 20 MG TAB PO SCH ×2 (08:31→17:00)
[2016-12-25] MEDS: ATENOLOL 50 MG TAB PO SCH (08:32)
[2016-12-25] MEDS: VENLAFAXINE **XR** 75MG CAPSULE PO SCH (08:32)
[2016-12-25] MEDS: DIVALPROEX 500 MG TAB PO SCH (08:32)
[2016-12-25] MEDS: ACETAMINOPHEN TAB 650MG DOSE (2X325MG) PO PRN (08:33)
[2016-12-25] MEDS: VITAMIN D 1,000 INTERNATIONAL UNITS TABLET PO SCH (12:59)
[2016-12-25 14:00] VITALS: BP 135/68
--- NOTE | 2016-12-25 14:36 | IPNPDOC ---
Text Note Date of Service The patient was seen on 12/25/16. NOTE Subjective: Patient is an 86 year old female with a PMHx of Atrial fibrillation ( on Coumadin), HTN, DLP, CKD3, Breast CA, Chronic dependent edema of LE, and Chronic venous stasis changes, who presented to the ER with complaints of increase LE swelling and weight gain. She was found to have 3+ pitting edema in the ER and having difficulty with ambulation. Dr. Curran (Wound care) follows the patient as an outpatient and recommended optilock leg dressing placement and unna boots. Patient was seen and examined at the bedside. She notes her legs look much better as the swelling has improved. She is asking about changes to the dressing of her legs, I have advised her that we will have wound care evaluate. Objective: Vitals (See below) General: Lying in bed, no acute distress, comfortable, AAOx3 HEENT: NC, AT CVS: IrIr, +S1S2 Lungs: Fair air entry b/l, no appreciable crackles / rhonchi Abdomen: Soft, ND, NT Extremities: Dressing in place, edema improving, - Calf tenderness Assessment and plan: Acute on Chronic LE pitting edema - likely 2/2 diet non-compliance - Presented with worsening LE edema resulting in ambulation difficulty - Has resolved since that point - Duplex US 12/18: Negative for DVT - ECHO 12/22: EF 60-65%, Normal diastolic function, Moderate TR, Mild Pulmonary HTN, Mild pulmonic regurgitation - c/w Torsemide (outpatient dose); s/p Furosemide IV - Negative fluid balance of -5000 cc since admission - c/w PT and awaiting placement at assisted living s/p Left hip pain - Fall history as outpatient; most recent 1 week prior to admission - XR of L hip 12/19: negative - c/w Tylenol PRN Chronic venous stasis ulcers of LE - likely 2/2 chronic edema - c/w Wound care as per recommendations from Dr. Curran - Will have wounds re-evaluated by wound therapy nurse; still pending Atrial fibrillation - INR mildly subtherapeutic today; will re-evaluate tomorrow at current dosing schedule - Digoxin level therapeutic 12/19 - c/w rate control with atenolol and digoxin - c/w Coumadin HTN - c/w Atenolol and Losartan DLP - c/w Simvastatin CKD3 - Cr at baseline Depression - c/w Venlafaxine Seizure history - c/w Depakote History of Breast CA - Follows with Dr. Hercules as an outpatient DVT prophylaxis - on full anticoagulation with Coumadin Disposition: - Awaiting PT clearance, but will likely need placement to assisted living VS,Fishbone, I+O VS, Fishbone, I+O Laboratory Tests 12/25/16 06:20 Red Blood Count 3.40 L, Mean Corpuscular Volume 88.4, Mean Corpuscular Hemoglobin 29.6, Mean Corpuscular Hemoglobin Concent 33.5, Red Cell Distribution Width 14.4, Calcium Level 8.5 L, Aspartate Amino Transf (AST/SGOT) 13 L, Alanine Aminotransferase (ALT/SGPT) 12, Alkaline Phosphatase 70, Total Bilirubin 0.4, Total Protein 6.2 L, Albumin 2.3 L Vital Signs Date Time Temp Pulse Resp B/P (MAP) Pulse Ox O2 Delivery O2 Flow Rate FiO2 12/25/16 08:32 74 163/78 12/25/16 06:00 98.8 20 92 Room Air I&O- Last 24 Hours up to 6 AM 12/25/16 06:00 Intake Total 1320 ml Output Total 2950 ml Balance -1630 ml MACEY BROWN MD Dec 25, 2016 14:36
[2016-12-25] MEDS: WARFARIN SOD 5 MG TAB PO SCH (17:00)
[2016-12-25] MEDS: LETROZOLE 2.5 MG TAB PO SCH (21:05)
[2016-12-25] MEDS: DIGOXIN 0.125 MG TAB PO SCH (21:05)
[2016-12-25] MEDS: SIMVASTATIN 20 MG TAB PO SCH (21:05)
[2016-12-25] MEDS: DIVALPROEX 250 MG TAB PO SCH (21:05)
[2016-12-25] MEDS: LOSARTAN 50 MG TAB PO SCH (21:05)
[2016-12-25 22:00] VITALS: BP 167/84
[2016-12-26 06:00] VITALS: BP 146/84
[2016-12-26] MEDS: TORSEMIDE 20 MG TAB PO SCH ×2 (08:44→15:46)
[2016-12-26] MEDS: DIVALPROEX 500 MG TAB PO SCH (08:44)
[2016-12-26] MEDS: VENLAFAXINE **XR** 75MG CAPSULE PO SCH (08:44)
[2016-12-26] MEDS: ATENOLOL 50 MG TAB PO SCH (08:45)
[2016-12-26] MEDS: POTASSIUM CHLORIDE 10 MEQ SR TABLET PO SCH (08:45)
[2016-12-26 10:34] LABS: BASO % 0.7 % (0.0-1.0); EOS # 0.1 K/mm3 (0.0-0.50); EOS % 2.4 % (0.0-3.0); LARGE UNSTAINED CELL # 0.1 K/mm3 (0.0-0.4); LARGE UNSTAINED CELL % 1.6 % (0.0-4.0); LYMPH # 0.7 K/mm3 (1.5-4.5); LYMPH % 13.4 % (24.0-44.0); MEAN CORPUSCULAR HEMOGLOBIN 29.5 pg (27.0-33.0); MEAN CORPUSCULAR HGB CONC 33.2 g/dl (32.0-36.5); MEAN CORPUSCULAR VOLUME 88.9 fl (80.0-96.0); MONO # 0.3 K/mm3 (0.0-0.8); MONO % 5.4 % (0.0-5.0); NEUTROPHILS # 3.8 K/mm3 (1.8-7.7); NEUTROPHILS % 76.5 % (36.0-66.0); PLATELET COUNT, AUTOMATED 243 k/mm3 (150-450); RED CELL DISTRIBUTION WIDTH 14.3 % (11.5-14.5); WHITE BLOOD COUNT 4.9 K/mm3 (4.0-10.0)
[2016-12-26 10:38] LABS: INR 1.88
[2016-12-26 10:55] LABS: ANION GAP 10 MEQ/L (8-16); BLOOD UREA NITROGEN 25 MG/DL (7-18); CALCIUM LEVEL 8.5 MG/DL (8.8-10.2); CARBON DIOXIDE LEVEL 32 MEQ/L (21-32); CHLORIDE LEVEL 102 MEQ/L (98-107); CREATININE FOR GFR 0.75 MG/DL (0.55-1.02); GLOMERULAR FILTRATION RATE > 60.0 (>32); GLUCOSE, FASTING 130 MG/DL (83-110); MAGNESIUM LEVEL 2.1 MG/DL (1.8-2.4); POTASSIUM SERUM 3.4 MEQ/L (3.5-5.1); SODIUM LEVEL 144 MEQ/L (136-145)
[2016-12-26] MEDS: VITAMIN D 1,000 INTERNATIONAL UNITS TABLET PO SCH (13:09)
[2016-12-26 14:00] VITALS: BP 151/63
--- NOTE | 2016-12-26 14:18 | IPNPDOC ---
Text Note Date of Service The patient was seen on 12/26/16. NOTE Subjective: Patient states she feels well. Continues to work with physical therapy. Objective: Vitals: (see below) General: No acute distress, laying comfortably in bed. HEENT: Moist mucous membranes. Neck: No JVD or lymphadenopathy Cardiac: RRR, No murmurs Pulm: Diminished at the bases b/l. No wheezing, rhonchi Abd: NT/ND + BS Ext: Trace to 1+ pitting edema bilateral lower extremities. No cyanosis. Labs (see below) Images: Lower extremity ultrasound 12/18/16 Impression: Negative bilateral lower extremity duplex venous ultrasound. No evidence of deep vein thrombosis. Chest x-ray 12/18/16Impression: Chronic stable changes. No acute cardiopulmonary process or evidence for pulmonary vascular congestion Hip x-ray 12/18/16 Impression: Early advanced degenerative changes. No acute fracture dislocation. Assessment/Plan 1. Worsening Acute on chronic lower extremity edema - secondary to noncompliance with diet. In increase in lower extremity edema has resulted in difficulty with ambulation as well. Lower extremity ultrasound negative for DVT. Echocardiogram on 12/22/16 with preserved EF normal diastolic dysfunction, moderate TR, mild pulmonary hypertension. The patient has had a negative balance at this point. 2. Chronic venous stasis ulcers of bilateral lower extremities with chronic lower some edema. Continue wound care. Follows up with Dr. Curran. 3. Status post mechanical fall- hip pain improved. X-ray negative. Continue Tylenol as needed. 4. History of atrial fibrillation on Coumadin. Continue digoxin, atenolol. INR subtherapeutic. We will increase Coumadin dosage. 5. Hypertension- continue home meds 6. Hyperlipidemia- on statin 7. CK D stage III- creatinine at baseline. Avoid nephrotoxins. 8. History of depression- continue home meds 9. History of seizures disorder- on Depakote 10. History of breast cancer- follows up with Dr. Encinas outpatient 11. Hypokalemia- replaced DVT prophy: On Coumadin Dispo: Awaiting PT clearance. VS,Fishbone, I+O VS, Fishbone, I+O Laboratory Tests 12/26/16 10:05 Red Blood Count 3.78 L, Mean Corpuscular Volume 88.9, Mean Corpuscular Hemoglobin 29.5, Mean Corpuscular Hemoglobin Concent 33.2, Red Cell Distribution Width 14.3, Neutrophils (%) (Auto) 76.5 H, Lymphocytes (%) (Auto) 13.4 L, Monocytes (%) (Auto) 5.4 H, Eosinophils (%) (Auto) 2.4, Basophils (%) ( Auto) 0.7, Neutrophils # (Auto) 3.8, Lymphocytes # (Auto) 0.7 L, Monocytes # ( Auto) 0.3, Eosinophils # (Auto) 0.1, Basophils # (Auto) 0.0, Calcium Level 8.5 L Vital Signs Date Time Temp Pulse Resp B/P (MAP) Pulse Ox O2 Delivery O2 Flow Rate FiO2 12/26/16 08:45 88 187/88 12/26/16 06:00 99.0 18 92 Room Air 97.4 I&O- Last 24 Hours up to 6 AM 12/26/16 06:00 Intake Total 1080 ml Output Total 1875 ml Balance -795 ml GINNA COX MD Dec 26, 2016 14:18
[2016-12-26] MEDS ORDERED: POTASSIUM CHLORIDE 10 MEQ SR TABLET PO ONE (14:30)
[2016-12-26 15:53] VITALS: BP 138/73
[2016-12-26] MEDS: WARFARIN SOD 5 MG TAB PO SCH (17:16)
[2016-12-26] MEDS: SIMVASTATIN 20 MG TAB PO SCH (20:34)
[2016-12-26] MEDS: DIGOXIN 0.125 MG TAB PO SCH (20:35)
[2016-12-26] MEDS: LOSARTAN 50 MG TAB PO SCH (20:36)
[2016-12-26] MEDS: DIVALPROEX 250 MG TAB PO SCH (20:36)
[2016-12-26] MEDS: LETROZOLE 2.5 MG TAB PO SCH (20:36)
[2016-12-26 22:00] VITALS: BP 141/65
[2016-12-27 06:00] VITALS: BP 153/77
[2016-12-27 07:08] LABS: MEAN CORPUSCULAR HEMOGLOBIN 29.5 pg (27.0-33.0); MEAN CORPUSCULAR VOLUME 86.9 fl (80.0-96.0); RED CELL DISTRIBUTION WIDTH 14.3 % (11.5-14.5); WHITE BLOOD COUNT 5.8 K/mm3 (4.0-10.0)
[2016-12-27 07:11] LABS: INR 2.27
[2016-12-27 07:41] LABS: ANION GAP 7 MEQ/L (8-16); BLOOD UREA NITROGEN 26 MG/DL (7-18); CALCIUM LEVEL 8.4 MG/DL (8.8-10.2); CARBON DIOXIDE LEVEL 31 MEQ/L (21-32); CHLORIDE LEVEL 104 MEQ/L (98-107); CREATININE FOR GFR 0.68 MG/DL (0.55-1.02); GLOMERULAR FILTRATION RATE > 60.0 (>32); GLUCOSE, FASTING 91 MG/DL (83-110); POTASSIUM SERUM 3.7 MEQ/L (3.5-5.1); SODIUM LEVEL 142 MEQ/L (136-145)
[2016-12-27] MEDS ORDERED: POTASSIUM CHLORIDE 10 MEQ SR TABLET PO ONE (07:45)
[2016-12-27] MEDS: TORSEMIDE 20 MG TAB PO SCH ×2 (09:03→15:37)
[2016-12-27] MEDS: VENLAFAXINE **XR** 75MG CAPSULE PO SCH (09:04)
[2016-12-27] MEDS: DIVALPROEX 500 MG TAB PO SCH (09:04)
[2016-12-27] MEDS: POTASSIUM CHLORIDE 10 MEQ SR TABLET PO SCH (09:05)
[2016-12-27] MEDS: ATENOLOL 50 MG TAB PO SCH (09:05)
[2016-12-27] MEDS ORDERED: WARF-18 PO (10:33)
[2016-12-27] MEDS: VITAMIN D 1,000 INTERNATIONAL UNITS TABLET PO SCH (11:42)
[2016-12-27 14:00] VITALS: BP 181/90
[2016-12-27 15:39] VITALS: BP 170/90
--- NOTE | 2016-12-27 16:22 | IPNPDOC ---
Text Note Date of Service The patient was seen on 12/27/16. NOTE Subjective: Patient states she feels well. Denies any changes overnight. Objective: Vitals: (see below) General: No acute distress, laying comfortably in bed. HEENT: Moist mucous membranes. Neck: No JVD or lymphadenopathy Cardiac: RRR, No murmurs Pulm: Diminished at the bases b/l. No wheezing, rhonchi Abd: NT/ND + BS Ext: Trace to 1+ pitting edema bilateral lower extremities. No cyanosis. Labs (see below) Images: Lower extremity ultrasound 12/18/16 Impression: Negative bilateral lower extremity duplex venous ultrasound. No evidence of deep vein thrombosis. Chest x-ray 12/18/16Impression: Chronic stable changes. No acute cardiopulmonary process or evidence for pulmonary vascular congestion Hip x-ray 12/18/16 Impression: Early advanced degenerative changes. No acute fracture dislocation. Assessment/Plan 1. Worsening Acute on chronic lower extremity edema - secondary to noncompliance with diet. In increase in lower extremity edema has resulted in difficulty with ambulation as well. Lower extremity ultrasound negative for DVT. Echocardiogram on 12/22/16 with preserved EF normal diastolic dysfunction, moderate TR, mild pulmonary hypertension. The patient has had a negative balance at this point. 2. Chronic venous stasis ulcers of bilateral lower extremities with chronic lower some edema. Continue wound care. Follows up with Dr. Curran. 3. Status post mechanical fall- hip pain improved. X-ray negative. Continue Tylenol as needed. 4. History of atrial fibrillation on Coumadin. Continue digoxin, atenolol. INR subtherapeutic. We will increase Coumadin dosage. 5. Hypertension- continue home meds 6. Hyperlipidemia- on statin 7. CK D stage III- creatinine at baseline. Avoid nephrotoxins. 8. History of depression- continue home meds 9. History of seizures disorder- on Depakote 10. History of breast cancer- follows up with Dr. Encinas outpatient 11. Hypokalemia- replaced DVT prophy: On Coumadin Dispo: Awaiting PT clearance. Will Place on ALC status. VS,Fishbone, I+O VS, Fishbone, I+O Laboratory Tests 12/27/16 06:38 Red Blood Count 3.53 L, Mean Corpuscular Volume 86.9, Mean Corpuscular Hemoglobin 29.5, Mean Corpuscular Hemoglobin Concent 34.0, Red Cell Distribution Width 14.3, Calcium Level 8.4 L Vital Signs Date Time Temp Pulse Resp B/P (MAP) Pulse Ox O2 Delivery O2 Flow Rate FiO2 12/27/16 15:39 71 170/90 (116) 12/27/16 14:00 98.6 18 98 Room Air 12/26/16 06:00 97.4 I&O- Last 24 Hours up to 6 AM 12/28/16 05:59 Intake Total 960 ml Output Total 850 ml Balance 110 ml GINNA COX MD Dec 27, 2016 16:22
[2016-12-27] MEDS: WARFARIN SOD 5 MG TAB PO SCH (17:18)
[2016-12-27] MEDS: DIVALPROEX 250 MG TAB PO SCH (21:38)
[2016-12-27] MEDS: LETROZOLE 2.5 MG TAB PO SCH (21:38)
[2016-12-27] MEDS: LOSARTAN 50 MG TAB PO SCH (21:39)
[2016-12-27] MEDS: SIMVASTATIN 20 MG TAB PO SCH (21:39)
[2016-12-27] MEDS: DIGOXIN 0.125 MG TAB PO SCH (21:39)
[2016-12-27 22:00] VITALS: BP 129/60
[2016-12-28 06:00] VITALS: BP 138/71
[2016-12-28 06:54] LABS: MEAN CORPUSCULAR HEMOGLOBIN 29.5 pg (27.0-33.0); MEAN CORPUSCULAR HGB CONC 33.4 g/dl (32.0-36.5); MEAN CORPUSCULAR VOLUME 88.2 fl (80.0-96.0); RED CELL DISTRIBUTION WIDTH 14.2 % (11.5-14.5); WHITE BLOOD COUNT 5.4 K/mm3 (4.0-10.0)
[2016-12-28 07:15] LABS: ANION GAP 8 MEQ/L (8-16); BLOOD UREA NITROGEN 26 MG/DL (7-18); CALCIUM LEVEL 8.8 MG/DL (8.8-10.2); CARBON DIOXIDE LEVEL 32 MEQ/L (21-32); CHLORIDE LEVEL 103 MEQ/L (98-107); CREATININE FOR GFR 0.73 MG/DL (0.55-1.02); GLOMERULAR FILTRATION RATE > 60.0 (>32); GLUCOSE, FASTING 86 MG/DL (83-110); MAGNESIUM LEVEL 2.2 MG/DL (1.8-2.4); POTASSIUM SERUM 3.6 MEQ/L (3.5-5.1); SODIUM LEVEL 143 MEQ/L (136-145)
[2016-12-28 07:41] LABS: INR 2.71
[2016-12-28 09:12] VITALS: BP 156/71
[2016-12-28] MEDS: TORSEMIDE 20 MG TAB PO SCH ×2 (09:13→15:02)
[2016-12-28] MEDS: DIVALPROEX 500 MG TAB PO SCH (09:14)
[2016-12-28] MEDS: ATENOLOL 50 MG TAB PO SCH (09:14)
[2016-12-28] MEDS: VENLAFAXINE **XR** 75MG CAPSULE PO SCH (09:14)
[2016-12-28] MEDS: POTASSIUM CHLORIDE 10 MEQ SR TABLET PO SCH (09:14)
[2016-12-28] MEDS: VITAMIN D 1,000 INTERNATIONAL UNITS TABLET PO SCH (11:18)
[2016-12-28 14:00] VITALS: BP 164/80
[2016-12-28] MEDS: WARFARIN SOD 5 MG TAB PO SCH (16:50)
[2016-12-28] MEDS: DIVALPROEX 250 MG TAB PO SCH (20:18)
[2016-12-28] MEDS: SIMVASTATIN 20 MG TAB PO SCH (20:18)
[2016-12-28] MEDS: LETROZOLE 2.5 MG TAB PO SCH (20:19)
[2016-12-28] MEDS: LOSARTAN 50 MG TAB PO SCH (20:19)
[2016-12-28] MEDS: DIGOXIN 0.125 MG TAB PO SCH (20:20)
[2016-12-28 22:00] VITALS: BP 162/68
[2016-12-29 06:00] VITALS: BP 152/67
[2016-12-29 06:34] LABS: MEAN CORPUSCULAR HEMOGLOBIN 29.2 pg (27.0-33.0); MEAN CORPUSCULAR HGB CONC 33.4 g/dl (32.0-36.5); MEAN CORPUSCULAR VOLUME 87.3 fl (80.0-96.0); RED CELL DISTRIBUTION WIDTH 14.1 % (11.5-14.5); WHITE BLOOD COUNT 5.7 K/mm3 (4.0-10.0)
[2016-12-29 06:43] LABS: INR 3.22
[2016-12-29 07:08] LABS: ANION GAP 6 MEQ/L (8-16); BLOOD UREA NITROGEN 27 MG/DL (7-18); CALCIUM LEVEL 8.5 MG/DL (8.8-10.2); CARBON DIOXIDE LEVEL 34 MEQ/L (21-32); CHLORIDE LEVEL 102 MEQ/L (98-107); CREATININE FOR GFR 0.86 MG/DL (0.55-1.02); GLOMERULAR FILTRATION RATE > 60.0 (>32); GLUCOSE, FASTING 87 MG/DL (83-110); MAGNESIUM LEVEL 2.3 MG/DL (1.8-2.4); POTASSIUM SERUM 3.4 MEQ/L (3.5-5.1); SODIUM LEVEL 142 MEQ/L (136-145)
[2016-12-29] MEDS: VENLAFAXINE **XR** 75MG CAPSULE PO SCH (08:52)
[2016-12-29] MEDS: TORSEMIDE 20 MG TAB PO SCH ×2 (08:52→15:39)
[2016-12-29] MEDS: ATENOLOL 50 MG TAB PO SCH (08:52)
[2016-12-29] MEDS: POTASSIUM CHLORIDE 10 MEQ SR TABLET PO SCH (08:52)
[2016-12-29] MEDS: DIVALPROEX 500 MG TAB PO SCH (08:53)
[2016-12-29] MEDS: VITAMIN D 1,000 INTERNATIONAL UNITS TABLET PO SCH (12:27)
[2016-12-29 14:00] VITALS: BP 141/63
[2016-12-29] MEDS: WARFARIN SOD 5 MG TAB PO SCH (17:11)
[2016-12-29] MEDS: LETROZOLE 2.5 MG TAB PO SCH (20:32)
[2016-12-29] MEDS: LOSARTAN 50 MG TAB PO SCH (20:32)
[2016-12-29] MEDS: DIGOXIN 0.125 MG TAB PO SCH (20:32)
[2016-12-29] MEDS: SIMVASTATIN 20 MG TAB PO SCH (20:33)
[2016-12-29] MEDS: DIVALPROEX 250 MG TAB PO SCH (20:33)
[2016-12-29 22:00] VITALS: BP 151/66
[2016-12-30 05:54] VITALS: BP 154/68
[2016-12-30 06:26] LABS: MEAN CORPUSCULAR HGB CONC 33.2 g/dl (32.0-36.5); MEAN CORPUSCULAR VOLUME 87.2 fl (80.0-96.0); RED CELL DISTRIBUTION WIDTH 14.2 % (11.5-14.5); WHITE BLOOD COUNT 4.9 K/mm3 (4.0-10.0)
[2016-12-30 06:32] LABS: INR 3.32
[2016-12-30 07:00] LABS: ANION GAP 9 MEQ/L (8-16); BLOOD UREA NITROGEN 27 MG/DL (7-18); CALCIUM LEVEL 8.7 MG/DL (8.8-10.2); CARBON DIOXIDE LEVEL 30 MEQ/L (21-32); CHLORIDE LEVEL 105 MEQ/L (98-107); CREATININE FOR GFR 0.85 MG/DL (0.55-1.02); GLOMERULAR FILTRATION RATE > 60.0 (>32); GLUCOSE, FASTING 84 MG/DL (83-110); MAGNESIUM LEVEL 2.4 MG/DL (1.8-2.4); POTASSIUM SERUM 3.3 MEQ/L (3.5-5.1); SODIUM LEVEL 144 MEQ/L (136-145)
[2016-12-30] MEDS: VENLAFAXINE **XR** 75MG CAPSULE PO SCH (09:17)
[2016-12-30] MEDS: TORSEMIDE 20 MG TAB PO SCH ×2 (09:17→16:01)
[2016-12-30] MEDS: DIVALPROEX 500 MG TAB PO SCH (09:17)
[2016-12-30] MEDS: ATENOLOL 50 MG TAB PO SCH (09:18)
[2016-12-30] MEDS: POTASSIUM CHLORIDE 10 MEQ SR TABLET PO SCH (09:18)
[2016-12-30] MEDS: VITAMIN D 1,000 INTERNATIONAL UNITS TABLET PO SCH (12:02)
[2016-12-30 14:00] VITALS: BP 122/79
[2016-12-30] MEDS: DIVALPROEX 250 MG TAB PO SCH (20:41)
[2016-12-30] MEDS: SIMVASTATIN 20 MG TAB PO SCH (20:41)
[2016-12-30] MEDS: DIGOXIN 0.125 MG TAB PO SCH (20:41)
[2016-12-30] MEDS: LETROZOLE 2.5 MG TAB PO SCH (20:41)
[2016-12-30] MEDS: LOSARTAN 50 MG TAB PO SCH (20:42)
[2016-12-30 22:00] VITALS: BP 142/67
[2016-12-31 06:00] VITALS: BP 156/68
[2016-12-31 06:36] LABS: INR 2.94; MEAN CORPUSCULAR HEMOGLOBIN 28.8 pg (27.0-33.0); MEAN CORPUSCULAR HGB CONC 33.2 g/dl (32.0-36.5); MEAN CORPUSCULAR VOLUME 86.9 fl (80.0-96.0); WHITE BLOOD COUNT 4.3 K/mm3 (4.0-10.0)
[2016-12-31 07:05] LABS: ANION GAP 8 MEQ/L (8-16); BLOOD UREA NITROGEN 27 MG/DL (7-18); CALCIUM LEVEL 8.4 MG/DL (8.8-10.2); CARBON DIOXIDE LEVEL 32 MEQ/L (21-32); CHLORIDE LEVEL 104 MEQ/L (98-107); CREATININE FOR GFR 0.83 MG/DL (0.55-1.02); GLOMERULAR FILTRATION RATE > 60.0 (>32); GLUCOSE, FASTING 80 MG/DL (83-110); MAGNESIUM LEVEL 2.3 MG/DL (1.8-2.4); POTASSIUM SERUM 3.4 MEQ/L (3.5-5.1); SODIUM LEVEL 144 MEQ/L (136-145)
[2016-12-31] MEDS: TORSEMIDE 20 MG TAB PO SCH ×2 (09:17→15:23)
[2016-12-31] MEDS: VENLAFAXINE **XR** 75MG CAPSULE PO SCH (09:17)
[2016-12-31] MEDS: POTASSIUM CHLORIDE 10 MEQ SR TABLET PO SCH (09:17)
[2016-12-31] MEDS: DIVALPROEX 500 MG TAB PO SCH (09:18)
[2016-12-31] MEDS: ATENOLOL 50 MG TAB PO SCH (09:18)
[2016-12-31] MEDS ORDERED: POTASSIUM CHLORIDE 10 MEQ SR TABLET PO ONE (11:15)
[2016-12-31] MEDS: VITAMIN D 1,000 INTERNATIONAL UNITS TABLET PO SCH (11:50)
[2016-12-31 13:20] VITALS: BP 126/64
[2016-12-31 14:00] VITALS: BP 129/60
[2016-12-31] MEDS: WARFARIN SOD 5 MG TAB PO SCH (18:32)
[2016-12-31] MEDS: LETROZOLE 2.5 MG TAB PO SCH (21:43)
[2016-12-31] MEDS: DIVALPROEX 250 MG TAB PO SCH (21:43)
[2016-12-31] MEDS: LOSARTAN 50 MG TAB PO SCH (21:43)
[2016-12-31] MEDS: SIMVASTATIN 20 MG TAB PO SCH (21:43)
[2016-12-31] MEDS: DIGOXIN 0.125 MG TAB PO SCH (21:45)
[2016-12-31 22:00] VITALS: BP 124/72
[2017-01-01 06:00] VITALS: BP 158/72
[2017-01-01 06:50] LABS: MEAN CORPUSCULAR HEMOGLOBIN 29.1 pg (27.0-33.0); MEAN CORPUSCULAR HGB CONC 33.3 g/dl (32.0-36.5); MEAN CORPUSCULAR VOLUME 87.2 fl (80.0-96.0); WHITE BLOOD COUNT 4.6 K/mm3 (4.0-10.0)
[2017-01-01 07:06] LABS: INR 2.27
[2017-01-01 07:16] LABS: ANION GAP 6 MEQ/L (8-16); BLOOD UREA NITROGEN 27 MG/DL (7-18); CALCIUM LEVEL 8.6 MG/DL (8.8-10.2); CARBON DIOXIDE LEVEL 33 MEQ/L (21-32); CHLORIDE LEVEL 102 MEQ/L (98-107); CREATININE FOR GFR 0.88 MG/DL (0.55-1.02); GLOMERULAR FILTRATION RATE > 60.0 (>32); GLUCOSE, FASTING 79 MG/DL (83-110); MAGNESIUM LEVEL 2.4 MG/DL (1.8-2.4); SODIUM LEVEL 141 MEQ/L (136-145)
[2017-01-01 08:00] VITALS: BP 121/68
[2017-01-01] MEDS: ACETAMINOPHEN TAB 650MG DOSE (2X325MG) PO PRN ×2 (08:28→16:02)
[2017-01-01] MEDS: DIVALPROEX 500 MG TAB PO SCH (08:29)
[2017-01-01] MEDS: VENLAFAXINE **XR** 75MG CAPSULE PO SCH (08:29)
[2017-01-01] MEDS: POTASSIUM CHLORIDE 10 MEQ SR TABLET PO SCH (08:29)
[2017-01-01] MEDS: TORSEMIDE 20 MG TAB PO SCH ×2 (08:30→16:02)
[2017-01-01] MEDS: ATENOLOL 50 MG TAB PO SCH (08:30)
[2017-01-01] MEDS: VITAMIN D 1,000 INTERNATIONAL UNITS TABLET PO SCH (13:37)
[2017-01-01 14:00] VITALS: BP 113/60
[2017-01-01] MEDS: WARFARIN SOD 5 MG TAB PO SCH (16:02)
[2017-01-01] MEDS: SIMVASTATIN 20 MG TAB PO SCH (21:27)
[2017-01-01] MEDS: LETROZOLE 2.5 MG TAB PO SCH (21:27)
[2017-01-01] MEDS: DIGOXIN 0.125 MG TAB PO SCH (21:28)
[2017-01-01] MEDS: DIVALPROEX 250 MG TAB PO SCH (21:28)
[2017-01-01] MEDS: LOSARTAN 50 MG TAB PO SCH (21:29)
[2017-01-01 22:00] VITALS: BP 121/60
[2017-01-02 06:00] VITALS: BP 118/63
[2017-01-02 06:46] LABS: MEAN CORPUSCULAR HEMOGLOBIN 27.7 pg (27.0-33.0); MEAN CORPUSCULAR HGB CONC 31.3 g/dl (32.0-36.5); MEAN CORPUSCULAR VOLUME 88.4 fl (80.0-96.0); RED CELL DISTRIBUTION WIDTH 14.4 % (11.5-14.5); WHITE BLOOD COUNT 4.5 10^3/uL (4.0-10.0)
[2017-01-02 07:05] LABS: INR 2.53
[2017-01-02 07:14] LABS: ANION GAP 7 MEQ/L (8-16); BLOOD UREA NITROGEN 29 MG/DL (7-18); CALCIUM LEVEL 8.6 MG/DL (8.8-10.2); CARBON DIOXIDE LEVEL 31 MEQ/L (21-32); CHLORIDE LEVEL 103 MEQ/L (98-107); CREATININE FOR GFR 0.76 MG/DL (0.55-1.02); GLOMERULAR FILTRATION RATE > 60.0 (>32); GLUCOSE, FASTING 84 MG/DL (83-110); MAGNESIUM LEVEL 2.3 MG/DL (1.8-2.4); POTASSIUM SERUM 3.7 MEQ/L (3.5-5.1); SODIUM LEVEL 141 MEQ/L (136-145)
[2017-01-02] MEDS: TORSEMIDE 20 MG TAB PO SCH ×2 (09:05→16:09)
[2017-01-02] MEDS: DIVALPROEX 500 MG TAB PO SCH (09:08)
[2017-01-02] MEDS: VENLAFAXINE **XR** 75MG CAPSULE PO SCH (09:08)
[2017-01-02] MEDS: POTASSIUM CHLORIDE 10 MEQ SR TABLET PO SCH (09:09)
[2017-01-02] MEDS: ATENOLOL 50 MG TAB PO SCH (09:09)
[2017-01-02] MEDS: VITAMIN D 1,000 INTERNATIONAL UNITS TABLET PO SCH (12:49)
[2017-01-02 16:09] VITALS: BP 112/60
[2017-01-02] MEDS: WARFARIN SOD 5 MG TAB PO SCH (17:22)
[2017-01-02] MEDS: DIVALPROEX 250 MG TAB PO SCH (19:59)
[2017-01-02] MEDS: LOSARTAN 50 MG TAB PO SCH (19:59)
[2017-01-02] MEDS: SIMVASTATIN 20 MG TAB PO SCH (20:00)
[2017-01-02] MEDS: LETROZOLE 2.5 MG TAB PO SCH (20:00)
[2017-01-02] MEDS: DIGOXIN 0.125 MG TAB PO SCH (20:03)
[2017-01-03 06:00] VITALS: BP 134/59
[2017-01-03 06:32] LABS: INR 2.37
[2017-01-03] MEDS: POTASSIUM CHLORIDE 10 MEQ SR TABLET PO SCH (08:33)
[2017-01-03] MEDS: ATENOLOL 50 MG TAB PO SCH (08:34)
[2017-01-03] MEDS: TORSEMIDE 20 MG TAB PO SCH ×2 (08:34→15:21)
[2017-01-03] MEDS: VENLAFAXINE **XR** 75MG CAPSULE PO SCH (08:39)
[2017-01-03] MEDS: DIVALPROEX 500 MG TAB PO SCH (08:40)
--- NOTE | 2017-01-03 11:58 | IPNPDOC ---
Text Note Date of Service The patient was seen on 01/03/17. NOTE Subjective: Patient is an 86 year old female with a PMHx of Atrial fibrillation ( on Coumadin), HTN, DLP, CKD3, Breast CA, Chronic dependent edema of LE, and Chronic venous stasis changes, who presented to the ER with complaints of increase LE swelling and weight gain. She was found to have 3+ pitting edema in the ER and having difficulty with ambulation. Dr. Curran (Wound care) follows the patient as an outpatient and recommended optilock leg dressing placement and unna boots. Patient was seen and examined at the bedside. She denies any new issues over the last 1 week. Objective: Vitals (See below) General: Lying in bed, no acute distress, comfortable, AAOx3 HEENT: NC, AT CVS: IrIr, +S1S2 Lungs: Fair air entry b/l, no appreciable crackles / rhonchi Abdomen: Soft, ND, NT Extremities: Dressing in place, `+ pitting edema b/l, - Calf tenderness Assessment and plan: Acute on Chronic LE pitting edema - likely 2/2 diet non-compliance - Presented with worsening LE edema resulting in ambulation difficulty - Has resolved since that point - Duplex US 12/18: Negative for DVT - ECHO 12/22: EF 60-65%, Normal diastolic function, Moderate TR, Mild Pulmonary HTN, Mild pulmonic regurgitation - c/w Torsemide based on outpatient dose; s/p Furosemide IV - Remains negative fluid balance - Awaiting placement at assisted living s/p Left hip pain - Fall history as outpatient; most recent 1 week prior to admission - XR of L hip 12/19: negative - c/w Tylenol PRN Chronic venous stasis ulcers of LE - likely 2/2 chronic edema - Wound care as per recommendations from Dr. Curran - c/w Dressing changes Atrial fibrillation - INR therapeutic - Digoxin level therapeutic 12/19 - c/w rate control with atenolol and digoxin - c/w Coumadin at adjusted dose HTN - c/w Atenolol and Losartan DLP - c/w Simvastatin CKD3 - Cr at baseline Depression - c/w Venlafaxine Seizure history - c/w Depakote History of Breast CA - Follows with Dr. Hercules as an outpatient DVT prophylaxis - on full anticoagulation with Coumadin Disposition: - Awaiting placement to assisted living VS[place]oe, I+O VS, [place], I+O Vital Signs Date Time Temp Pulse Resp B/P (MAP) Pulse Ox O2 Delivery O2 Flow Rate FiO2 01/03/17 08:34 64 140/70 01/03/17 06:00 97.7 16 99 Room Air MACEY BROWN MD Jan 03, 2017 11:58
[2017-01-03] MEDS: VITAMIN D 1,000 INTERNATIONAL UNITS TABLET PO SCH (13:23)
[2017-01-03 14:00] VITALS: BP 126/59
[2017-01-03 15:21] VITALS: BP 136/67
[2017-01-03] MEDS: WARFARIN SOD 5 MG TAB PO SCH (17:39)
[2017-01-03] MEDS: DIVALPROEX 250 MG TAB PO SCH (21:15)
[2017-01-03] MEDS: LOSARTAN 50 MG TAB PO SCH (21:15)
[2017-01-03] MEDS: SIMVASTATIN 20 MG TAB PO SCH (21:16)
[2017-01-03] MEDS: DIGOXIN 0.125 MG TAB PO SCH (21:16)
[2017-01-03] MEDS: LETROZOLE 2.5 MG TAB PO SCH (21:18)
[2017-01-03 22:00] VITALS: BP 141/73
[2017-01-04 06:00] VITALS: BP 140/66
[2017-01-04] MEDS: TORSEMIDE 20 MG TAB PO SCH ×2 (09:20→15:23)
[2017-01-04] MEDS: ATENOLOL 50 MG TAB PO SCH (09:22)
[2017-01-04] MEDS: VENLAFAXINE **XR** 75MG CAPSULE PO SCH (09:22)
[2017-01-04] MEDS: DIVALPROEX 500 MG TAB PO SCH (09:22)
[2017-01-04] MEDS: POTASSIUM CHLORIDE 10 MEQ SR TABLET PO SCH (09:23)
[2017-01-04] MEDS: VITAMIN D 1,000 INTERNATIONAL UNITS TABLET PO SCH (13:16)
[2017-01-04 14:00] VITALS: BP 138/64
[2017-01-04 15:23] VITALS: BP 140/77
[2017-01-04] MEDS: WARFARIN SOD 5 MG TAB PO SCH (16:27)
[2017-01-04 22:00] VITALS: BP 145/65
[2017-01-04] MEDS: LETROZOLE 2.5 MG TAB PO SCH (22:37)
[2017-01-04] MEDS: SIMVASTATIN 20 MG TAB PO SCH (22:37)
[2017-01-04] MEDS: DIVALPROEX 250 MG TAB PO SCH (22:37)
[2017-01-04] MEDS: DIGOXIN 0.125 MG TAB PO SCH (22:37)
[2017-01-04] MEDS: LOSARTAN 50 MG TAB PO SCH (22:38)
[2017-01-05 06:00] VITALS: BP 168/79
[2017-01-05] MEDS: POTASSIUM CHLORIDE 10 MEQ SR TABLET PO SCH (09:04)
[2017-01-05] MEDS: ATENOLOL 50 MG TAB PO SCH (09:04)
[2017-01-05] MEDS: TORSEMIDE 20 MG TAB PO SCH ×2 (09:04→16:41)
[2017-01-05] MEDS: DIVALPROEX 500 MG TAB PO SCH (09:05)
[2017-01-05] MEDS: VENLAFAXINE **XR** 75MG CAPSULE PO SCH (09:05)
[2017-01-05] MEDS: VITAMIN D 1,000 INTERNATIONAL UNITS TABLET PO SCH (12:49)
[2017-01-05] MEDS: WARFARIN SOD 5 MG TAB PO SCH (16:41)
[2017-01-05] MEDS: DIVALPROEX 250 MG TAB PO SCH (20:08)
[2017-01-05] MEDS: LOSARTAN 50 MG TAB PO SCH (20:08)
[2017-01-05] MEDS: LETROZOLE 2.5 MG TAB PO SCH (20:09)
[2017-01-05] MEDS: SIMVASTATIN 20 MG TAB PO SCH (20:09)
[2017-01-05] MEDS: DIGOXIN 0.125 MG TAB PO SCH (20:09)
[2017-01-06 06:00] VITALS: BP 141/69
[2017-01-06] MEDS: TORSEMIDE 20 MG TAB PO SCH ×2 (09:38→13:41)
[2017-01-06] MEDS: POTASSIUM CHLORIDE 10 MEQ SR TABLET PO SCH (09:38)
[2017-01-06] MEDS: ATENOLOL 50 MG TAB PO SCH (09:39)
[2017-01-06] MEDS: DIVALPROEX 500 MG TAB PO SCH (09:39)
[2017-01-06] MEDS: VENLAFAXINE **XR** 75MG CAPSULE PO SCH (09:39)
[2017-01-06] MEDS: VITAMIN D 1,000 INTERNATIONAL UNITS TABLET PO SCH (13:41)
[2017-01-06 14:00] VITALS: BP 160/74
[2017-01-06] MEDS: WARFARIN SOD 5 MG TAB PO SCH (18:04)
[2017-01-06] MEDS: LOSARTAN 50 MG TAB PO SCH (22:31)
[2017-01-06] MEDS: DIGOXIN 0.125 MG TAB PO SCH (22:32)
[2017-01-06] MEDS: SIMVASTATIN 20 MG TAB PO SCH (22:32)
[2017-01-06] MEDS: DIVALPROEX 250 MG TAB PO SCH (22:32)
[2017-01-06] MEDS: LETROZOLE 2.5 MG TAB PO SCH (22:33)
[2017-01-07 06:00] VITALS: BP 166/77
[2017-01-07 07:19] LABS: INR 3.59
[2017-01-07] MEDS: TORSEMIDE 20 MG TAB PO SCH ×2 (10:37→12:27)
[2017-01-07] MEDS: POTASSIUM CHLORIDE 10 MEQ SR TABLET PO SCH (10:37)
[2017-01-07] MEDS: ATENOLOL 50 MG TAB PO SCH (10:38)
[2017-01-07] MEDS: VENLAFAXINE **XR** 75MG CAPSULE PO SCH (10:38)
[2017-01-07] MEDS: DIVALPROEX 500 MG TAB PO SCH (10:38)
[2017-01-07] MEDS: VITAMIN D 1,000 INTERNATIONAL UNITS TABLET PO SCH (12:27)
[2017-01-07 14:00] VITALS: BP 141/74
[2017-01-07] MEDS: WARFARIN SOD 3 MG TAB PO SCH (18:51)
[2017-01-07] MEDS: SIMVASTATIN 20 MG TAB PO SCH (21:29)
[2017-01-07] MEDS: DIGOXIN 0.125 MG TAB PO SCH (21:29)
[2017-01-07] MEDS: DIVALPROEX 250 MG TAB PO SCH (21:29)
[2017-01-07] MEDS: LOSARTAN 50 MG TAB PO SCH (21:30)
[2017-01-07] MEDS: LETROZOLE 2.5 MG TAB PO SCH (21:30)
[2017-01-07 22:00] VITALS: BP 136/68
[2017-01-08 06:00] VITALS: BP 163/82
[2017-01-08] MEDS: ACETAMINOPHEN TAB 650MG DOSE (2X325MG) PO PRN (07:46)
[2017-01-08] MEDS: POTASSIUM CHLORIDE 10 MEQ SR TABLET PO SCH (07:46)
[2017-01-08] MEDS: VENLAFAXINE **XR** 75MG CAPSULE PO SCH (07:47)
[2017-01-08] MEDS: TORSEMIDE 20 MG TAB PO SCH ×2 (07:47→14:38)
[2017-01-08] MEDS: ATENOLOL 50 MG TAB PO SCH (07:47)
[2017-01-08] MEDS: DIVALPROEX 500 MG TAB PO SCH (07:48)
[2017-01-08 08:23] LABS: INR 2.98
[2017-01-08 09:08] VITALS: BP 123/59
[2017-01-08] MEDS: VITAMIN D 1,000 INTERNATIONAL UNITS TABLET PO SCH (11:50)
[2017-01-08 14:39] VITALS: BP 126/60
[2017-01-08] MEDS: WARFARIN SOD 3 MG TAB PO SCH (17:25)
[2017-01-08] MEDS: SIMVASTATIN 20 MG TAB PO SCH (20:19)
[2017-01-08] MEDS: LETROZOLE 2.5 MG TAB PO SCH (20:19)
[2017-01-08] MEDS: DIVALPROEX 250 MG TAB PO SCH (20:19)
[2017-01-08] MEDS: DIGOXIN 0.125 MG TAB PO SCH (20:20)
[2017-01-08] MEDS: LOSARTAN 50 MG TAB PO SCH (20:20)
[2017-01-08 22:00] VITALS: BP 176/78
[2017-01-09 06:00] VITALS: BP 183/84
[2017-01-09 08:03] LABS: INR 2.51
[2017-01-09] MEDS: TORSEMIDE 20 MG TAB PO SCH ×2 (08:57→15:10)
[2017-01-09] MEDS: POTASSIUM CHLORIDE 10 MEQ SR TABLET PO SCH (08:57)
[2017-01-09] MEDS: DIVALPROEX 500 MG TAB PO SCH (08:58)
[2017-01-09] MEDS: ATENOLOL 50 MG TAB PO SCH (08:58)
[2017-01-09] MEDS: VENLAFAXINE **XR** 75MG CAPSULE PO SCH (08:58)
[2017-01-09] MEDS: VITAMIN D 1,000 INTERNATIONAL UNITS TABLET PO SCH (12:01)
[2017-01-09 15:10] VITALS: BP 145/69
[2017-01-09] MEDS: WARFARIN SOD 3 MG TAB PO SCH (18:22)
[2017-01-09] MEDS: SIMVASTATIN 20 MG TAB PO SCH (22:19)
[2017-01-09] MEDS: LETROZOLE 2.5 MG TAB PO SCH (22:20)
[2017-01-09] MEDS: DIGOXIN 0.125 MG TAB PO SCH (22:20)
[2017-01-09] MEDS: LOSARTAN 50 MG TAB PO SCH (22:20)
[2017-01-09] MEDS: DIVALPROEX 250 MG TAB PO SCH (22:20)
[2017-01-10 06:00] VITALS: BP 132/74
[2017-01-10 07:22] LABS: INR 2.3
[2017-01-10] MEDS: DIVALPROEX 500 MG TAB PO SCH (09:15)
[2017-01-10] MEDS: POTASSIUM CHLORIDE 10 MEQ SR TABLET PO SCH (09:15)
[2017-01-10] MEDS: ATENOLOL 50 MG TAB PO SCH (09:15)
[2017-01-10] MEDS: VENLAFAXINE **XR** 75MG CAPSULE PO SCH (09:15)
[2017-01-10] MEDS: TORSEMIDE 20 MG TAB PO SCH ×2 (09:16→14:25)
[2017-01-10] MEDS: VITAMIN D 1,000 INTERNATIONAL UNITS TABLET PO SCH (12:05)
[2017-01-10 12:13] LABS: MEAN CORPUSCULAR HEMOGLOBIN 27.4 pg (27.0-33.0); MEAN CORPUSCULAR HGB CONC 30.8 g/dl (32.0-36.5); RED CELL DISTRIBUTION WIDTH 14.4 % (11.5-14.5); WHITE BLOOD COUNT 4.8 10^3/uL (4.0-10.0)
[2017-01-10 12:42] LABS: ANION GAP 4 MEQ/L (8-16); BLOOD UREA NITROGEN 25 MG/DL (7-18); CARBON DIOXIDE LEVEL 36 MEQ/L (21-32); CHLORIDE LEVEL 99 MEQ/L (98-107); CREATININE FOR GFR 0.77 MG/DL (0.55-1.02); GLOMERULAR FILTRATION RATE > 60.0 (>32); GLUCOSE, FASTING 75 MG/DL (83-110); POTASSIUM SERUM 3.8 MEQ/L (3.5-5.1); SODIUM LEVEL 139 MEQ/L (136-145)
[2017-01-10] MEDS: EUCERIN 120GM CREAM TOP SCH ×2 (14:24→20:31)
--- NOTE | 2017-01-10 15:42 | IPNPDOC ---
Text Note Date of Service The patient was seen on 01/10/17. NOTE Subjective: Denies any changes overnight. Objective: Vitals: (see below) General: No acute distress, laying comfortably in bed. HEENT: Moist mucous membranes. Neck: No JVD or lymphadenopathy Cardiac: RRR, No murmurs Pulm: Diminished at the bases b/l. No wheezing, rhonchi Abd: NT/ND + BS Ext: Trace edema bilateral lower extremities. No cyanosis. Labs (see below) Images: Lower extremity ultrasound 12/18/16 Impression: Negative bilateral lower extremity duplex venous ultrasound. No evidence of deep vein thrombosis. Chest x-ray 12/18/16Impression: Chronic stable changes. No acute cardiopulmonary process or evidence for pulmonary vascular congestion Hip x-ray 12/18/16 Impression: Early advanced degenerative changes. No acute fracture dislocation. Assessment/Plan 1.Lower extremity edema - improved. secondary to noncompliance with diet. In increase in lower extremity edema has resulted in difficulty with ambulation as well. Lower extremity ultrasound negative for DVT. Echocardiogram on 12/22/16 with preserved EF normal diastolic dysfunction, moderate TR, mild pulmonary hypertension. The patient has had a negative balance at this point. 2. Chronic venous stasis ulcers of bilateral lower extremities with chronic lower some edema. Continue wound care. Follows up with Dr. Curran. 3. Status post mechanical fall- hip pain improved. X-ray negative. Continue Tylenol as needed. 4. History of atrial fibrillation on Coumadin. Continue digoxin, atenolol. INR therapeutic. 5. Hypertension- continue home meds 6. Hyperlipidemia- on statin 7. CK D stage III- creatinine at baseline. Avoid nephrotoxins. 8. History of depression- continue home meds 9. History of seizures disorder- on Depakote 10. History of breast cancer- follows up with Dr. Encinas outpatient 11. Hypokalemia- replaced DVT prophy: On Coumadin Dispo: Awaiting placement. VS,Fishbone, I+O VS, Fishbone, I+O Laboratory Tests 01/10/17 11:56 Red Blood Count 4.01, Mean Corpuscular Volume 89.0, Mean Corpuscular Hemoglobin 27.4, Mean Corpuscular Hemoglobin Concent 30.8 L, Red Cell Distribution Width 14.4, Calcium Level 9.0 Vital Signs Date Time Temp Pulse Resp B/P (MAP) Pulse Ox O2 Delivery O2 Flow Rate FiO2 01/10/17 06:00 97.8 64 18 132/74 (93) 94 Room Air I&O- Last 24 Hours up to 6 AM 01/11/17 06:00 Intake Total 720 ml Output Total 500 ml Balance 220 ml IGNNA COX MD Jan 10, 2017 15:42
[2017-01-10] MEDS: WARFARIN SOD 3 MG TAB PO SCH (17:21)
[2017-01-10] MEDS ORDERED: TUBERCULIN PPD 5 UNITS/0.1 ML ID ONE (18:00)
[2017-01-10] MEDS: LOSARTAN 50 MG TAB PO SCH (20:30)
[2017-01-10] MEDS: DIVALPROEX 250 MG TAB PO SCH (20:31)
[2017-01-10] MEDS: SIMVASTATIN 20 MG TAB PO SCH (20:31)
[2017-01-10] MEDS: LETROZOLE 2.5 MG TAB PO SCH (20:31)
[2017-01-10] MEDS: DIGOXIN 0.125 MG TAB PO SCH (20:31)
[2017-01-11 06:00] VITALS: BP 141/82
[2017-01-11 07:27] LABS: INR 2.05
[2017-01-11] MEDS: TORSEMIDE 20 MG TAB PO SCH ×2 (08:24→15:58)
[2017-01-11] MEDS: VENLAFAXINE **XR** 75MG CAPSULE PO SCH (08:24)
[2017-01-11] MEDS: DIVALPROEX 500 MG TAB PO SCH (08:24)
[2017-01-11] MEDS: POTASSIUM CHLORIDE 10 MEQ SR TABLET PO SCH (08:24)
[2017-01-11] MEDS: ATENOLOL 50 MG TAB PO SCH (08:25)
[2017-01-11] MEDS: EUCERIN 120GM CREAM TOP SCH ×2 (08:25→20:33)
[2017-01-11] MEDS: VITAMIN D 1,000 INTERNATIONAL UNITS TABLET PO SCH (11:55)
[2017-01-11 14:00] VITALS: BP 122/66
[2017-01-11 15:58] VITALS: BP 123/84
[2017-01-11] MEDS: WARFARIN SOD 3 MG TAB PO SCH (17:34)
[2017-01-11] MEDS: LOSARTAN 50 MG TAB PO SCH (20:32)
[2017-01-11] MEDS: DIVALPROEX 250 MG TAB PO SCH (20:32)
[2017-01-11] MEDS: LETROZOLE 2.5 MG TAB PO SCH (20:32)
[2017-01-11] MEDS: SIMVASTATIN 20 MG TAB PO SCH (20:32)
[2017-01-11] MEDS: DIGOXIN 0.125 MG TAB PO SCH (20:33)
[2017-01-12 07:23] LABS: INR 1.93
[2017-01-12 08:00] VITALS: BP 139/79
[2017-01-12] MEDS: EUCERIN 120GM CREAM TOP SCH ×2 (09:20→20:23)
[2017-01-12] MEDS: ATENOLOL 50 MG TAB PO SCH (09:20)
[2017-01-12] MEDS: DIVALPROEX 500 MG TAB PO SCH (09:21)
[2017-01-12] MEDS: TORSEMIDE 20 MG TAB PO SCH ×2 (09:21→15:30)
[2017-01-12] MEDS: POTASSIUM CHLORIDE 10 MEQ SR TABLET PO SCH (09:21)
[2017-01-12] MEDS: VENLAFAXINE **XR** 75MG CAPSULE PO SCH (09:21)
[2017-01-12] MEDS: VITAMIN D 1,000 INTERNATIONAL UNITS TABLET PO SCH (12:05)
[2017-01-12 15:31] VITALS: BP 124/65
[2017-01-12] MEDS: WARFARIN SOD 3 MG TAB PO SCH (17:38)
[2017-01-12] MEDS ORDERED: PPD DOCUMENTATION ENTRY MISC XX ONE (18:00)
[2017-01-12] MEDS: SIMVASTATIN 20 MG TAB PO SCH (20:21)
[2017-01-12] MEDS: LETROZOLE 2.5 MG TAB PO SCH (20:22)
[2017-01-12] MEDS: DIGOXIN 0.125 MG TAB PO SCH (20:22)
[2017-01-12] MEDS: LOSARTAN 50 MG TAB PO SCH (20:22)
[2017-01-12] MEDS: DIVALPROEX 250 MG TAB PO SCH (20:22)
[2017-01-13] MEDS: EUCERIN 120GM CREAM TOP SCH ×2 (09:00→20:01)
[2017-01-13] MEDS: TORSEMIDE 20 MG TAB PO SCH ×2 (09:00→15:00)
[2017-01-13] MEDS: POTASSIUM CHLORIDE 10 MEQ SR TABLET PO SCH (11:48)
[2017-01-13] MEDS: VITAMIN D 1,000 INTERNATIONAL UNITS TABLET PO SCH (11:48)
[2017-01-13] MEDS: VENLAFAXINE **XR** 75MG CAPSULE PO SCH (11:48)
[2017-01-13] MEDS: ATENOLOL 50 MG TAB PO SCH (11:49)
[2017-01-13] MEDS: DIVALPROEX 500 MG TAB PO SCH (11:49)
[2017-01-13 14:00] VITALS: BP 148/72
[2017-01-13] MEDS: WARFARIN SOD 3 MG TAB PO SCH (17:00)
[2017-01-13] MEDS: SIMVASTATIN 20 MG TAB PO SCH (20:01)
[2017-01-13] MEDS: DIGOXIN 0.125 MG TAB PO SCH (20:02)
[2017-01-13] MEDS: LOSARTAN 50 MG TAB PO SCH (20:02)
[2017-01-13] MEDS: DIVALPROEX 250 MG TAB PO SCH (20:02)
[2017-01-13] MEDS: LETROZOLE 2.5 MG TAB PO SCH (20:03)
[2017-01-14 06:00] VITALS: BP 127/63
[2017-01-14] MEDS: EUCERIN 120GM CREAM TOP SCH ×2 (09:00→20:36)
[2017-01-14] MEDS: ATENOLOL 50 MG TAB PO SCH (10:57)
[2017-01-14] MEDS: DIVALPROEX 500 MG TAB PO SCH (10:58)
[2017-01-14] MEDS: POTASSIUM CHLORIDE 10 MEQ SR TABLET PO SCH (10:58)
[2017-01-14] MEDS: TORSEMIDE 20 MG TAB PO SCH ×2 (10:58→14:54)
[2017-01-14] MEDS: VENLAFAXINE **XR** 75MG CAPSULE PO SCH (10:59)
[2017-01-14] MEDS: VITAMIN D 1,000 INTERNATIONAL UNITS TABLET PO SCH (10:59)
[2017-01-14 14:00] VITALS: BP 152/68
[2017-01-14] MEDS: WARFARIN SOD 3 MG TAB PO SCH (18:25)
[2017-01-14] MEDS: DIGOXIN 0.125 MG TAB PO SCH (20:33)
[2017-01-14] MEDS: LETROZOLE 2.5 MG TAB PO SCH (20:34)
[2017-01-14] MEDS: LOSARTAN 50 MG TAB PO SCH (20:34)
[2017-01-14] MEDS: SIMVASTATIN 20 MG TAB PO SCH (20:35)
[2017-01-14] MEDS: DIVALPROEX 250 MG TAB PO SCH (20:35)
[2017-01-15 06:00] VITALS: BP 150/82
[2017-01-15 08:00] VITALS: BP 183/79
[2017-01-15] MEDS: TORSEMIDE 20 MG TAB PO SCH ×2 (09:26→15:10)
[2017-01-15] MEDS: VENLAFAXINE **XR** 75MG CAPSULE PO SCH (09:26)
[2017-01-15] MEDS: DIVALPROEX 500 MG TAB PO SCH (09:27)
[2017-01-15] MEDS: POTASSIUM CHLORIDE 10 MEQ SR TABLET PO SCH (09:27)
[2017-01-15] MEDS: ATENOLOL 50 MG TAB PO SCH (09:28)
[2017-01-15] MEDS: EUCERIN 120GM CREAM TOP SCH ×2 (09:29→20:36)
[2017-01-15 11:05] LABS: MEAN CORPUSCULAR HEMOGLOBIN 27.8 pg (27.0-33.0); MEAN CORPUSCULAR HGB CONC 31.5 g/dl (32.0-36.5); RED CELL DISTRIBUTION WIDTH 14.5 % (11.5-14.5); WHITE BLOOD COUNT 4.7 10^3/uL (4.0-10.0)
[2017-01-15 11:25] LABS: INR 1.6
[2017-01-15 11:37] LABS: ANION GAP 6 MEQ/L (8-16); BLOOD UREA NITROGEN 24 MG/DL (7-18); CALCIUM LEVEL 8.4 MG/DL (8.8-10.2); CARBON DIOXIDE LEVEL 34 MEQ/L (21-32); CHLORIDE LEVEL 99 MEQ/L (98-107); CREATININE FOR GFR 0.83 MG/DL (0.55-1.02); GLOMERULAR FILTRATION RATE > 60.0 (>32); GLUCOSE, FASTING 96 MG/DL (83-110); POTASSIUM SERUM 3.6 MEQ/L (3.5-5.1); SODIUM LEVEL 139 MEQ/L (136-145)
[2017-01-15] MEDS: VITAMIN D 1,000 INTERNATIONAL UNITS TABLET PO SCH (12:10)
[2017-01-15 14:00] VITALS: BP 136/78
[2017-01-15] MEDS: WARFARIN SOD 3 MG TAB PO SCH (16:15)
[2017-01-15] MEDS: LOSARTAN 50 MG TAB PO SCH (20:34)
[2017-01-15] MEDS: DIGOXIN 0.125 MG TAB PO SCH (20:34)
[2017-01-15] MEDS: LETROZOLE 2.5 MG TAB PO SCH (20:34)
[2017-01-15] MEDS: SIMVASTATIN 20 MG TAB PO SCH (20:35)
[2017-01-15] MEDS: DIVALPROEX 250 MG TAB PO SCH (20:35)
[2017-01-15 22:00] VITALS: BP 138/68
[2017-01-16 06:00] VITALS: BP 195/90
[2017-01-16 08:14] LABS: INR 1.54
[2017-01-16] MEDS: ATENOLOL 50 MG TAB PO SCH (08:18)
[2017-01-16] MEDS: VENLAFAXINE **XR** 75MG CAPSULE PO SCH (08:19)
[2017-01-16] MEDS: POTASSIUM CHLORIDE 10 MEQ SR TABLET PO SCH (08:19)
[2017-01-16] MEDS: DIVALPROEX 500 MG TAB PO SCH (08:19)
[2017-01-16] MEDS: TORSEMIDE 20 MG TAB PO SCH ×2 (08:20→15:15)
[2017-01-16] MEDS: EUCERIN 120GM CREAM TOP SCH ×2 (08:21→20:03)
[2017-01-16] MEDS: VITAMIN D 1,000 INTERNATIONAL UNITS TABLET PO SCH (12:19)
[2017-01-16 15:15] VITALS: BP 168/78
[2017-01-16] MEDS: WARFARIN SOD 4 MG TAB PO SCH (16:17)
[2017-01-16] MEDS: DIVALPROEX 250 MG TAB PO SCH (20:01)
[2017-01-16] MEDS: LOSARTAN 50 MG TAB PO SCH (20:01)
[2017-01-16] MEDS: LETROZOLE 2.5 MG TAB PO SCH (20:02)
[2017-01-16] MEDS: SIMVASTATIN 20 MG TAB PO SCH (20:02)
[2017-01-16] MEDS: DIGOXIN 0.125 MG TAB PO SCH (20:02)
[2017-01-17 06:00] VITALS: BP 144/82
[2017-01-17 07:42] LABS: INR 1.45
[2017-01-17] MEDS: ATENOLOL 50 MG TAB PO SCH (08:27)
[2017-01-17] MEDS: TORSEMIDE 20 MG TAB PO SCH ×2 (08:28→15:29)
[2017-01-17] MEDS: EUCERIN 120GM CREAM TOP SCH ×2 (08:29→20:31)
[2017-01-17] MEDS: VENLAFAXINE **XR** 75MG CAPSULE PO SCH (08:30)
[2017-01-17] MEDS: DIVALPROEX 500 MG TAB PO SCH (08:30)
[2017-01-17] MEDS: POTASSIUM CHLORIDE 10 MEQ SR TABLET PO SCH (08:30)
[2017-01-17] MEDS: VITAMIN D 1,000 INTERNATIONAL UNITS TABLET PO SCH (12:34)
[2017-01-17 15:41] VITALS: BP 165/74
[2017-01-17] MEDS: WARFARIN SOD 4 MG TAB PO SCH (16:56)
[2017-01-17] MEDS: LETROZOLE 2.5 MG TAB PO SCH (20:30)
[2017-01-17] MEDS: SIMVASTATIN 20 MG TAB PO SCH (20:30)
[2017-01-17] MEDS: DIVALPROEX 250 MG TAB PO SCH (20:30)
[2017-01-17] MEDS: DIGOXIN 0.125 MG TAB PO SCH (20:30)
[2017-01-17] MEDS: LOSARTAN 50 MG TAB PO SCH (20:31)
[2017-01-18] MEDS: ACETAMINOPHEN TAB 650MG DOSE (2X325MG) PO PRN ×2 (02:34→20:12)
[2017-01-18 06:00] VITALS: BP 142/70
[2017-01-18 07:09] LABS: INR 1.76
[2017-01-18] MEDS: TORSEMIDE 20 MG TAB PO SCH ×2 (08:34→15:05)
[2017-01-18] MEDS: VENLAFAXINE **XR** 75MG CAPSULE PO SCH (08:34)
[2017-01-18] MEDS: DIVALPROEX 500 MG TAB PO SCH (08:34)
[2017-01-18] MEDS: amLODIPine 5 MG TAB PO SCH (08:35)
[2017-01-18] MEDS: POTASSIUM CHLORIDE 10 MEQ SR TABLET PO SCH (08:35)
[2017-01-18 08:39] VITALS: BP 175/85
[2017-01-18] MEDS: EUCERIN 120GM CREAM TOP SCH ×2 (09:00→20:11)
[2017-01-18] MEDS: VITAMIN D 1,000 INTERNATIONAL UNITS TABLET PO SCH (13:12)
[2017-01-18] MEDS: ATENOLOL 50 MG TAB PO SCH (13:12)
[2017-01-18 14:00] VITALS: BP 120/55
[2017-01-18 15:06] VITALS: BP 137/75
--- NOTE | 2017-01-18 15:22 | IPN ---
DATE: 01/18/2017 Ms. Pierre is feeling well today. She is has no complaints of pain. No chest pain. No shortness of breath. Tolerating her diet. Temperature 97.8, pulse 72, respiration 18, blood pressure 142/79. 95% on room air. Ins and outs notable for positive fluid balance 280. She is awake and appropriately interactive, pleasantly conversant. No recent CBC or BMP. INR is 1.76. ASSESSMENT: This is an 86-year-old with chronic venous stasis ulcers bilateral lower extremities awaiting placement. PLAN: 1. Lower extremity edema. Apparently this has improved. Now she has her legs wrapped and following wound care instructions from Dr. Curran. She has no complaints of pain. 2. Patient's subtherapeutic Coumadin dose is increased. 3. Patient has hypertension. 4. Patient has hyperlipidemia. 5. Patient has chronic kidney disease, stage III. We will repeat labs tomorrow. 6. Patient has history of seizure disorder on Depakote. We will check a Depakote level tomorrow.
[2017-01-18] MEDS: WARFARIN SOD 5 MG TAB PO SCH (17:24)
[2017-01-18] MEDS: DIGOXIN 0.125 MG TAB PO SCH (20:09)
[2017-01-18] MEDS: LETROZOLE 2.5 MG TAB PO SCH (20:10)
[2017-01-18] MEDS: LOSARTAN 50 MG TAB PO SCH (20:10)
[2017-01-18] MEDS: DIVALPROEX 250 MG TAB PO SCH (20:10)
[2017-01-18] MEDS: SIMVASTATIN 20 MG TAB PO SCH (20:10)
[2017-01-19 06:00] VITALS: BP 140/84
[2017-01-19 07:07] LABS: MEAN CORPUSCULAR HEMOGLOBIN 27.5 pg (27.0-33.0); MEAN CORPUSCULAR HGB CONC 31.6 g/dl (32.0-36.5); MEAN CORPUSCULAR VOLUME 87.1 fl (80.0-96.0); RED CELL DISTRIBUTION WIDTH 14.5 % (11.5-14.5); WHITE BLOOD COUNT 3.7 10^3/uL (4.0-10.0)
[2017-01-19 07:19] LABS: INR 1.93
[2017-01-19 07:22] LABS: ANION GAP 7 MEQ/L (8-16); BLOOD UREA NITROGEN 28 MG/DL (7-18); CALCIUM LEVEL 8.9 MG/DL (8.8-10.2); CARBON DIOXIDE LEVEL 33 MEQ/L (21-32); CHLORIDE LEVEL 103 MEQ/L (98-107); GLOMERULAR FILTRATION RATE > 60.0 (>32); GLUCOSE, FASTING 77 MG/DL (83-110); POTASSIUM SERUM 3.5 MEQ/L (3.5-5.1); SODIUM LEVEL 143 MEQ/L (136-145)
[2017-01-19] MEDS: EUCERIN 120GM CREAM TOP SCH ×2 (09:00→20:39)
[2017-01-19] MEDS: DIVALPROEX 500 MG TAB PO SCH (09:22)
[2017-01-19] MEDS: ATENOLOL 50 MG TAB PO SCH (09:22)
[2017-01-19] MEDS: TORSEMIDE 20 MG TAB PO SCH ×2 (09:22→15:59)
[2017-01-19] MEDS: VENLAFAXINE **XR** 75MG CAPSULE PO SCH (09:22)
[2017-01-19] MEDS: POTASSIUM CHLORIDE 10 MEQ SR TABLET PO SCH (09:23)
[2017-01-19] MEDS: amLODIPine 5 MG TAB PO SCH (09:23)
[2017-01-19] MEDS: VITAMIN D 1,000 INTERNATIONAL UNITS TABLET PO SCH (12:20)
[2017-01-19] MEDS: WARFARIN SOD 5 MG TAB PO SCH (16:00)
[2017-01-19] MEDS: DIVALPROEX 250 MG TAB PO SCH (20:36)
[2017-01-19] MEDS: LETROZOLE 2.5 MG TAB PO SCH (20:36)
[2017-01-19] MEDS: SIMVASTATIN 20 MG TAB PO SCH (20:36)
[2017-01-19] MEDS: LOSARTAN 50 MG TAB PO SCH (20:38)
[2017-01-19] MEDS: DIGOXIN 0.125 MG TAB PO SCH (20:38)
[2017-01-20 07:07] LABS: INR 2.09
[2017-01-20 10:07] VITALS: BP 132/63
[2017-01-20] MEDS: amLODIPine 5 MG TAB PO SCH (10:08)
[2017-01-20] MEDS: VENLAFAXINE **XR** 75MG CAPSULE PO SCH (10:08)
[2017-01-20] MEDS: DIVALPROEX 500 MG TAB PO SCH (10:08)
[2017-01-20] MEDS: ATENOLOL 50 MG TAB PO SCH (10:09)
[2017-01-20] MEDS: VITAMIN D 1,000 INTERNATIONAL UNITS TABLET PO SCH (10:09)
[2017-01-20] MEDS: POTASSIUM CHLORIDE 10 MEQ SR TABLET PO SCH (10:09)
[2017-01-20] MEDS: EUCERIN 120GM CREAM TOP SCH ×2 (10:10→20:49)
[2017-01-20] MEDS: TORSEMIDE 20 MG TAB PO SCH ×2 (10:10→15:06)
[2017-01-20 14:00] VITALS: BP 134/63
[2017-01-20] MEDS: WARFARIN SOD 5 MG TAB PO SCH (17:42)
[2017-01-20] MEDS: DIVALPROEX 250 MG TAB PO SCH (20:49)
[2017-01-20] MEDS: LOSARTAN 50 MG TAB PO SCH (20:49)
[2017-01-20] MEDS: SIMVASTATIN 20 MG TAB PO SCH (20:49)
[2017-01-20] MEDS: DIGOXIN 0.125 MG TAB PO SCH (20:49)
[2017-01-20 20:51] VITALS: BP 149/67
[2017-01-20] MEDS: LETROZOLE 2.5 MG TAB PO SCH (20:58)
[2017-01-21 06:00] VITALS: BP 180/70
[2017-01-21] MEDS: amLODIPine 5 MG TAB PO SCH (06:21)
[2017-01-21] MEDS: TORSEMIDE 20 MG TAB PO SCH ×2 (06:22→15:34)
[2017-01-21] MEDS: POTASSIUM CHLORIDE 10 MEQ SR TABLET PO SCH (09:53)
[2017-01-21] MEDS: VENLAFAXINE **XR** 75MG CAPSULE PO SCH (09:53)
[2017-01-21] MEDS: EUCERIN 120GM CREAM TOP SCH ×2 (09:54→21:26)
[2017-01-21] MEDS: ATENOLOL 50 MG TAB PO SCH (09:54)
[2017-01-21] MEDS: DIVALPROEX 500 MG TAB PO SCH (09:54)
[2017-01-21] MEDS: VITAMIN D 1,000 INTERNATIONAL UNITS TABLET PO SCH (12:23)
[2017-01-21 13:30] VITALS: BP 142/62
[2017-01-21 14:00] VITALS: BP 136/65
[2017-01-21] MEDS: WARFARIN SOD 5 MG TAB PO SCH (17:33)
[2017-01-21] MEDS: SIMVASTATIN 20 MG TAB PO SCH (21:25)
[2017-01-21] MEDS: LOSARTAN 50 MG TAB PO SCH (21:25)
[2017-01-21] MEDS: DIVALPROEX 250 MG TAB PO SCH (21:26)
[2017-01-21] MEDS: DIGOXIN 0.125 MG TAB PO SCH (21:26)
[2017-01-21] MEDS: LETROZOLE 2.5 MG TAB PO SCH (21:26)
[2017-01-22 06:00] VITALS: BP 168/70
[2017-01-22 06:35] LABS: MEAN CORPUSCULAR HEMOGLOBIN 27.6 pg (27.0-33.0); MEAN CORPUSCULAR HGB CONC 31.8 g/dl (32.0-36.5); MEAN CORPUSCULAR VOLUME 86.9 fl (80.0-96.0); RED CELL DISTRIBUTION WIDTH 14.5 % (11.5-14.5); WHITE BLOOD COUNT 3.4 10^3/uL (4.0-10.0)
[2017-01-22 06:41] LABS: INR 2.26
[2017-01-22 06:52] LABS: ANION GAP 5 MEQ/L (8-16); BLOOD UREA NITROGEN 21 MG/DL (7-18); CALCIUM LEVEL 8.8 MG/DL (8.8-10.2); CARBON DIOXIDE LEVEL 36 MEQ/L (21-32); CHLORIDE LEVEL 100 MEQ/L (98-107); CREATININE FOR GFR 0.89 MG/DL (0.55-1.02); GLOMERULAR FILTRATION RATE > 60.0 (>32); GLUCOSE, FASTING 76 MG/DL (83-110); POTASSIUM SERUM 3.3 MEQ/L (3.5-5.1); SODIUM LEVEL 141 MEQ/L (136-145)
[2017-01-22 08:11] VITALS: BP 176/81
[2017-01-22] MEDS: DIVALPROEX 500 MG TAB PO SCH (09:59)
[2017-01-22] MEDS: ATENOLOL 50 MG TAB PO SCH (10:00)
[2017-01-22] MEDS: amLODIPine 5 MG TAB PO SCH (10:00)
[2017-01-22] MEDS: POTASSIUM CHLORIDE 10 MEQ SR TABLET PO SCH (10:01)
[2017-01-22] MEDS: VENLAFAXINE **XR** 75MG CAPSULE PO SCH (10:01)
[2017-01-22] MEDS: TORSEMIDE 20 MG TAB PO SCH ×2 (10:02→15:34)
[2017-01-22] MEDS: EUCERIN 120GM CREAM TOP SCH ×2 (10:02→19:52)
[2017-01-22] MEDS: VITAMIN D 1,000 INTERNATIONAL UNITS TABLET PO SCH (12:11)
[2017-01-22 14:30] VITALS: BP 156/76
[2017-01-22 15:34] VITALS: BP 114/88
[2017-01-22] MEDS ORDERED: POTASSIUM CHLORIDE 10 MEQ SR TABLET PO ONE (16:00)
[2017-01-22] MEDS: WARFARIN SOD 5 MG TAB PO SCH (17:16)
[2017-01-22] MEDS: DIVALPROEX 250 MG TAB PO SCH (19:50)
[2017-01-22] MEDS: LETROZOLE 2.5 MG TAB PO SCH (19:51)
[2017-01-22] MEDS: SIMVASTATIN 20 MG TAB PO SCH (19:51)
[2017-01-22] MEDS: LOSARTAN 50 MG TAB PO SCH (19:51)
[2017-01-22] MEDS: DIGOXIN 0.125 MG TAB PO SCH (19:51)
[2017-01-23 06:00] VITALS: BP 175/88
[2017-01-23 07:42] LABS: ANION GAP 5 MEQ/L (8-16); BLOOD UREA NITROGEN 20 MG/DL (7-18); CALCIUM LEVEL 8.9 MG/DL (8.8-10.2); CARBON DIOXIDE LEVEL 34 MEQ/L (21-32); CHLORIDE LEVEL 104 MEQ/L (98-107); CREATININE FOR GFR 0.87 MG/DL (0.55-1.02); GLOMERULAR FILTRATION RATE > 60.0 (>32); GLUCOSE, FASTING 80 MG/DL (83-110); POTASSIUM SERUM 3.7 MEQ/L (3.5-5.1); SODIUM LEVEL 143 MEQ/L (136-145)
[2017-01-23] MEDS: TORSEMIDE 20 MG TAB PO SCH ×2 (08:31→15:42)
[2017-01-23] MEDS: DIVALPROEX 500 MG TAB PO SCH (08:31)
[2017-01-23] MEDS: POTASSIUM CHLORIDE 10 MEQ SR TABLET PO SCH (08:32)
[2017-01-23] MEDS: VENLAFAXINE **XR** 75MG CAPSULE PO SCH (08:32)
[2017-01-23] MEDS: amLODIPine 5 MG TAB PO SCH (08:33)
[2017-01-23] MEDS: ATENOLOL 50 MG TAB PO SCH (08:33)
[2017-01-23] MEDS: EUCERIN 120GM CREAM TOP SCH ×2 (08:35→20:00)
[2017-01-23] MEDS: VITAMIN D 1,000 INTERNATIONAL UNITS TABLET PO SCH (12:50)
[2017-01-23 15:42] VITALS: BP 157/69
[2017-01-23] MEDS: WARFARIN SOD 5 MG TAB PO SCH (18:00)
[2017-01-23] MEDS: DIVALPROEX 250 MG TAB PO SCH (19:57)
[2017-01-23] MEDS: DIGOXIN 0.125 MG TAB PO SCH (19:58)
[2017-01-23] MEDS: SIMVASTATIN 20 MG TAB PO SCH (19:59)
[2017-01-23] MEDS: LOSARTAN 50 MG TAB PO SCH (19:59)
[2017-01-23] MEDS: LETROZOLE 2.5 MG TAB PO SCH (19:59)
[2017-01-24 06:00] VITALS: BP 162/78
[2017-01-24 07:12] LABS: INR 2.54
[2017-01-24] MEDS: POTASSIUM CHLORIDE 10 MEQ SR TABLET PO SCH (10:05)
[2017-01-24] MEDS: amLODIPine 5 MG TAB PO SCH (10:05)
[2017-01-24] MEDS: TORSEMIDE 20 MG TAB PO SCH ×2 (10:05→15:53)
[2017-01-24] MEDS: EUCERIN 120GM CREAM TOP SCH ×2 (10:06→22:08)
[2017-01-24] MEDS: DIVALPROEX 500 MG TAB PO SCH (10:06)
[2017-01-24] MEDS: VENLAFAXINE **XR** 75MG CAPSULE PO SCH (10:06)
[2017-01-24] MEDS: ATENOLOL 50 MG TAB PO SCH (10:06)
[2017-01-24] MEDS ORDERED: POTA10CA PO (13:10)
[2017-01-24] MEDS ORDERED: VENL75CA2 PO (13:10)
[2017-01-24] MEDS ORDERED: SIMV20TA2 PO (13:10)
[2017-01-24] MEDS ORDERED: ATEN50TA2 PO (13:10)
[2017-01-24] MEDS ORDERED: CALC600T31 PO (13:10)
[2017-01-24] MEDS ORDERED: VITA100066 PO (13:10)
[2017-01-24] MEDS ORDERED: DIVA250T PO ×2 (13:10)
[2017-01-24] MEDS ORDERED: LOSA100T36 PO (13:10)
[2017-01-24] MEDS ORDERED: REST0.05 OU (13:10)
[2017-01-24] MEDS ORDERED: TORS20TA2 PO ×2 (13:10)
[2017-01-24] MEDS ORDERED: LETR2.5T2 PO (13:10)
[2017-01-24] MEDS ORDERED: DIGO0.12 PO (13:11)
[2017-01-24] MEDS: VITAMIN D 1,000 INTERNATIONAL UNITS TABLET PO SCH (15:52)
[2017-01-24] MEDS: WARFARIN SOD 5 MG TAB PO SCH (18:15)
[2017-01-24] MEDS: LETROZOLE 2.5 MG TAB PO SCH (22:06)
[2017-01-24] MEDS: SIMVASTATIN 20 MG TAB PO SCH (22:06)
[2017-01-24] MEDS: DIVALPROEX 250 MG TAB PO SCH (22:07)
[2017-01-24] MEDS: DIGOXIN 0.125 MG TAB PO SCH (22:07)
[2017-01-24] MEDS: LOSARTAN 50 MG TAB PO SCH (22:07)
[2017-01-25 06:00] VITALS: BP 168/72
[2017-01-25 07:24] LABS: INR 2.63
[2017-01-25] MEDS: TORSEMIDE 20 MG TAB PO SCH (09:47)
[2017-01-25] MEDS: ATENOLOL 50 MG TAB PO SCH (09:47)
[2017-01-25 09:48] VITALS: BP 168/72
[2017-01-25] MEDS: amLODIPine 5 MG TAB PO SCH (09:48)
[2017-01-25] MEDS: DIVALPROEX 500 MG TAB PO SCH (09:48)
[2017-01-25] MEDS: VENLAFAXINE **XR** 75MG CAPSULE PO SCH (09:48)
[2017-01-25] MEDS: POTASSIUM CHLORIDE 10 MEQ SR TABLET PO SCH (09:48)
[2017-01-25] MEDS: EUCERIN 120GM CREAM TOP SCH (09:48)
[2017-01-25] MEDS: VITAMIN D 1,000 INTERNATIONAL UNITS TABLET PO SCH (12:25)
== END 2017-01-25 13:29 | disposition home health service (06) | DRG 948 ==
LOC: EDBD 12:10 → M ED 12:10 → M ED INP 16:17 → M MS5PR 21:30
PROVIDERS: ADMIT Internal Medicine; ATTEND Internal Medicine
DX: R60.0 Localized edema (principal); L97.919 Non-pressure chronic ulcer of unspecified part of right lower leg with unspecified severity; L97.929 Non-pressure chronic ulcer of unspecified part of left lower leg with unspecified severity; I12.9 Hypertensive chronic kidney disease with stage 1 through stage 4 chronic kidney disease, or unspecified chronic kidney disease; E78.5 Hyperlipidemia, unspecified; N18.3 Chronic kidney disease, stage 3 (moderate); I48.91 Unspecified atrial fibrillation; I27.20 Pulmonary hypertension, unspecified; E87.6 Hypokalemia; M25.552 Pain in left hip; R26.2 Difficulty in walking, not elsewhere classified; G40.909 Epilepsy, unspecified, not intractable, without status epilepticus; F32.9 Major depressive disorder, single episode, unspecified; I87.2 Venous insufficiency (chronic) (peripheral); Z85.3 Personal history of malignant neoplasm of breast; Z79.01 Long term (current) use of anticoagulants; Z91.11 Patient's noncompliance with dietary regimen; Z79.899 Other long term (current) drug therapy; Z88.0 Allergy status to penicillin; Z88.2 Allergy status to sulfonamides; Z96.653 Presence of artificial knee joint, bilateral